=== PATIENT | female | born 1940 ===

== ENCOUNTER 2017-10-07 21:14 | Inpatient (IN) | payer MEDICARE, OTHER ==
--- NOTE | 2017-10-07 22:28 | ED PDOC ---
Arrival/HPI - General Chief Complaint: Abdominal Pain Time Seen by Provider: 10/07/17 22:24 Historian: Family - History of Present Illness Narrative History of Present Illness (Text): 10/07/17 22:28 Jn Marrufo is a 77 year old female, whose past medical history includes advanced dementia, hypertension, and diverticulitis, who presents to the Emergency department brought in by son complaining of RUQ pain today. Limited HPI and ROS secondary to patient's dementia. PMD: Dr. Nunez Symptom Onset: Gradual Symptom Course: Unchanged Activities at Onset: Light Context: Home Past Medical History - Provider Review Nursing Documentation Reviewed: Yes - Cardiac Hx Cardiac Disorders: Yes Hx Hypertension: Yes - Neurological Hx Neurological Disorder: Yes Hx Alzheimer's Disease: Yes - HEENT Hx HEENT Disorder: No - Renal Hx Renal Disorder: No - Endocrine/Metabolic Hx Endocrine Disorders: Yes Hx Diabetes Mellitus Type 2: Yes - Hematological/Oncological Hx Blood Disorders: No - Integumentary Hx Dermatological Disorder: No - Musculoskeletal/Rheumatological Hx Musculoskeletal Disorders: No - Gastrointestinal Hx Gastrointestinal Disorders: No - Genitourinary/Gynecological Hx Genitourinary Disorders: No - Psychiatric Hx Psychophysiologic Disorder: No Hx Substance Use: No - Surgical History Other/Comment: fibroid removal Family/Social History - Physician Review Nursing Documentation Reviewed: Yes Family/Social History: Unknown Family HX Smoking Status: Never Smoked Hx Alcohol Use: No Hx Substance Use: No Allergies/Home Meds Allergies/Adverse Reactions: Allergies piperacillin [From Zosyn] Allergy (Mild, Verified 10/08/17 15:09) SWELLING lip swelling noted. iodine Allergy (Verified 10/08/17 14:44) ANAPHYLAXIS Home Medications: Home Meds Medication Instructions Recorded Confirmed Clopidogrel [Plavix] 75 mg PO DAILY 10/07/17 10/07/17 Hydrochlorothiazide [Microzide] 12.5 mg PO DAILY 10/07/17 10/07/17 Hydrocortisone 2.5% 1 appl TP BID 10/07/17 10/07/17 Megestrol [Megace] 40 mg PO BID 10/07/17 10/08/17 Memantine HCl [Namenda Xr] 28 mg PO DAILY 10/07/17 10/07/17 Mirtazapine [Remeron] 15 mg PO DAILY 10/07/17 10/07/17 Omeprazole 40 mg PO DAILY 10/07/17 10/07/17 Rosuvastatin Calcium [Crestor] 20 mg PO DAILY 10/07/17 10/07/17 amLODIPine [Norvasc] 10 mg PO DAILY 10/07/17 10/07/17 Metoprolol Tartrate [Lopressor] 50 mg PO BID 10/08/17 10/08/17 cloNIDine [Catapres] 0.1 mg PO BID 10/08/17 10/08/17 Review of Systems - Patients Enrolled in [employer] [X]: A conversation was conducted with the primary medical doctor. - Review of Systems Systems not reviewed;Unavailable: Dementia Gastrointestinal: Abdominal Pain Physical Exam Vital Signs Reviewed: Yes Vital Signs Temp Pulse Resp BP Pulse Ox 10/08/17 08:38 98.6 F 90 18 156/74 H 98 10/08/17 07:28 80 18 141/82 98 10/08/17 06:51 89 17 143/58 L 98 10/08/17 04:39 85 17 122/78 98 10/07/17 21:49 99.1 F 75 18 124/68 97 Temperature: Afebrile Blood Pressure: Normal Pulse: Regular Respiratory Rate: Normal Appearance: Positive for: Well-Appearing, Non-Toxic, Comfortable Pain Distress: None Mental Status: Positive for: other (Alert) - Systems Exam Head: Present: Atraumatic, Normocephalic Pupils: Present: PERRL Extroacular Muscles: Present: EOMI Conjunctiva: Present: Normal Mouth: Present: Moist Mucous Membranes Neck: Present: Normal Range of Motion Respiratory/Chest: Present: Clear to Auscultation, Good Air Exchange. No: Respiratory Distress, Accessory Muscle Use Cardiovascular: Present: Regular Rate and Rhythm, Normal S1, S2. No: Murmurs Abdomen: Present: Tenderness (RUQ tenderness) Back: Present: Normal Inspection Upper Extremity: Present: Normal Inspection. No: Cyanosis, Edema Lower Extremity: Present: Normal Inspection. No: Edema Neurological: Present: GCS=15, CN II-XII Intact, Speech Normal Skin: Present: Warm, Dry, Normal Color. No: Rashes Psychiatric: Present: Alert, Oriented x 3, Normal Insight, Normal Concentration Medical Decision Making ED Course and Treatment: 10/07/17 22:28 Impression: 77 year old female presents to the Emergency department with RUQ abdominal pain. Plan: -- US abdomen -- EKG -- Labs, cardiac enzymes, amylase, lipase -- Urinalysis -- Reassess and disposition Progress Notes: 10/08/17 00:33 US Abdomen shows: Liver: Within the right hepatic lobe, there is a hyperechoic lesion measuring 1.3 x 1.2 x 1.1 cm. An additional hyperechoic lesion is visualized within the right hepatic lobe measuring 1.3 x 1.3 x 1.2 cm. These findings are suggestive of hemangiomas, although additional pathology cannot be excluded. The liver measures 15.4 cm in length. Gallbladder: There is an echogenic gallstone or polyp within the gallbladder. There is equivocal posterior acoustic shadowing. Common bile duct: The common bile that measures 2 mm in diameter, which is within normal limits. Pancreas: Unremarkable as visualized. Kidneys: At the mid-upper pole of the right kidney, there is a complex hyperechoic lesion measuring 1.5 x 1.1 cm. At the midpole of the left kidney, there is a 1.4 x 1.3 x 1.4 cm hypoechoic cyst, with subtle internal septation. The right kidney measures 8.0 x 4.6 x 5.5 cm. The left kidney measures 8.5 x 4.2 x 4.9 cm. No hydronephrosis. Spleen: The spleen measures 8.5 x 3.9 x 4.0 cm. The spleen measures 8.6 x 3.0 x 4.0 cm. There is normal echotexture of the spleen. Aorta: Limited evaluation. Inferior vena cava: Patent, as visualized IMPRESSION: 1. Within the right hepatic lobe, there were a few hyperechoic lesions. These findings are suggestive of hemangiomas, although additional pathology cannot be excluded. 2. At the mid-upper pole of the right kidney, there is a complex hyperechoic lesion measuring 1.5 x 1.1 cm. 3. There is an echogenic gallstone or polyp within the gallbladder. 4. At the midpole of the left kidney, there is a 1.4 x 1.3 x 1.4 cm hypoechoic cyst, with subtle internal septation. 5. A nonemergent MRI of the abdomen with contrast is recommended. 6. Incidental/non-acute findings are described above. 10/08/17 01:35 Reviewed EKG, NSR at 83 bpm. Non-specific T wave changes laterally. No previous for comparison. 10/08/17 02:[address] Nevarez, who is aware and agrees with plan. Accepts pt in to his service. Pt admitted to [facility] for cholelithiasis, r/o cholecystitis. Requests Dr. Copeland and Dr. Miranda on consult. 10/08/17 02:40 CT Abdomen and Pelvis shows: 1. There is a moderate-sized hiatal hernia. Significant wall thickening is visualized of the distal esophagus, which may be inflammatory, although malignancy cannot be excluded. This can be further evaluated with upper endoscopy. 2. Within the right hepatic lobe, there is a 1.1 x 0.8 cm hypodense lesion. A nonemergent multiphase contrast CT or PET/CT is recommended 3. Cholelithiasis. 4. Lateral to the left adrenal gland, there is a peripherally calcified splenic artery aneurysm measuring 1.1 cm in diameter. 5. Scattered colonic diverticula are visualized. There is wall thickening of the sigmoid colon and rectum, suggestive of incomplete distention nor proctocolitis. Additional pathology cannot be excluded. 6. There is a mild compression fracture of the T12 and L1 vertebral bodies, with a moderate compression fracture of L4. The acuity of these findings is indeterminate. There is grade I anterolisthesis of L4 on L5 and L5 on S1. 7. Additional CT findings described above. 10/08/17 02:44 Case discussed with surgical nurse practitioner psychosocial rehabilitation counselor, who is aware and agrees with plan. 10/08/17 04:11 Pt with 1 episode of coffee ground emesis in ER. Rectal exam performed, brown stool, Guaiac negative. Protonix drip started. - Lab Interpretations Lab Results: 10/07/17 22:50 10/07/17 22:50 Lab Results 10/07/17 22:50: Sodium 138, Potassium 3.5 L, Chloride 98, Carbon Dioxide 22, Anion Gap 21 H, BUN 34 H, Creatinine 2.1 H, Est GFR ( Amer) 27, Est GFR ( Non-Af Amer) 23, Random Glucose 223 H, Calcium 11.9 H, Total Bilirubin 0.8, AST 27, ALT 18, Alkaline Phosphatase 60, Lactate Dehydrogenase 435, Total Creatine Kinase 110, Troponin I 0.03, Total Protein 7.8, Albumin 4.6, Globulin 3.2, Albumin/Globulin Ratio 1.4, Amylase 45, Lipase 129 10/07/17 22:50: PT 12.4, INR 1.09 H, APTT 20.8 L 10/07/17 22:50: WBC 12.5 H, RBC 3.66, Hgb 10.9 L, Hct 32.7 L, MCV 89.3, MCH 29.8 , MCHC 33.3, RDW 12.5, Plt Count 231, MPV 11.5 H, Gran % 76.5 H, Lymph % (Auto) 16.8 L, [place] % (Auto) 5.5, Eos % (Auto) 1.0 L, Baso % (Auto) 0.2, Gran # 9.56 H , Lymph # (Auto) 2.1, [place] # (Auto) 0.7 H, Eos # (Auto) 0.1, Baso # (Auto) 0.03 I have reviewed the lab results: Yes - RAD Interpretation Radiology Orders: 10/07/17 22:28 ABDOMEN COMPLETE [US] Stat 10/08/17 00:33 ABD & PELVIS W/O PO OR IV CONT [CT] Stat Arts Therapist: Radiologist - EKG Interpretation Interpreted by ED Physician: Yes Type: 12 lead EKG - Medication Orders Current Medication Orders: Amlodipine Besylate (Norvasc) 10 mg PO DAILY [facility] Last Admin: 10/08/17 18:55 Dose: 10 mg MAR Blood Pressure Document 10/08/17 18:55 DC (Rec: 10/08/17 18:55 DC [id number]) Blood Pressure Blood Pressure (100/60-150/90) 158/70 Diphenhydramine HCl (Benadryl) 25 mg IVP Q6H PRN PRN Reason: Anaphylaxis Last Admin: 10/08/17 23:21 Dose: 25 mg IVP Administration Document 10/08/17 23:21 KTR (Rec: 10/08/17 23:21 KTR [id number]) Charges for Administration # of IVP Administrations 1 Pantoprazole Sodium (Protonix 40mg Ivpb) 40 mg in 100 mls @ 20 mls/hr IVPB .Q5H [facility] Last Admin: 10/09/17 07:22 Dose: 20 mls/hr eMAR Start Stop Document 10/09/17 07:22 KTR (Rec: 10/09/17 07:22 KTR [id number] Intravenous Solution Start Date 10/09/17 Start Time 07:22 Sodium Chloride (Sodium Chloride 0.45%) 1,000 mls @ 80 mls/hr IV .[id number] [facility] Last Admin: 10/08/17 18:55 Dose: 80 mls/hr eMAR Start Stop Document 10/08/17 18:55 DC (Rec: 10/08/17 18:55 DC [id number][place] Intravenous Solution Start Date 10/08/17 Start Time 18:55 Aztreonam (Azactam 1 Gm) 100 mls @ 100 mls/hr IVPB Q8 [facility] PRN Reason: Protocol Stop: 10/16/17 06:01 Last Admin: 10/09/17 05:38 Dose: 100 mls/hr eMAR Start Stop Document 10/09/17 05:38 KTR (Rec: 10/09/17 05:38 KTR [id number]) Intravenous Solution Start Date 10/09/17 Start Time 05:38 Metronidazole (Flagyl) 500 mg in 100 mls @ 100 mls/hr IVPB Q8 [facility] PRN Reason: Protocol Last Admin: 10/09/17 05:10 Dose: 100 mls/hr eMAR Start Stop Document 10/09/17 05:10 KTR (Rec: 10/09/17 05:10 KTR [id number]) Intravenous Solution Start Date 10/09/17 Start Time 05:10 Insulin Human Regular (Humulin R High) 0 units SC ACHS [facility] PRN Reason: Protocol Last Admin: 10/08/17 23:18 Dose: Not Given Non-Admin Reason: Blood Sugar Parameter [facility] Blood Glucose Document 10/08/17 23:18 KTR (Rec: 10/08/17 23:18 KTR [id number]) Blood Glucose Finger Stick Blood Glucose (70-120) 158 Ketorolac Tromethamine (Toradol) 30 mg IVP Q8H PRN PRN Reason: Pain, moderate (4-7) Last Admin: 10/08/17 17:48 Dose: 30 mg MAR Pain Assessment Document 10/08/17 17:48 DC (Rec: 10/08/17 17:49 DC [id number][place] Pain Reassessment Is this a pain reassessment? No Presence of Pain Presence of Pain Yes Location Pain Location Body Site Abdomen IVP Administration Document 10/08/17 17:48 DC (Rec: 10/08/17 17:49 DC [id number][place] Charges for Administration # of IVP Administrations 1 Re-Assess: MAR Pain Assessment Document 10/08/17 18:48 DC (Rec: 10/08/17 19:09 DC [id number][place] Pain Reassessment Is this a pain reassessment? Yes Presence of Pain Presence of Pain No Ondansetron HCl (Zofran Inj) 4 mg IVP Q4 PRN PRN Reason: Nausea/Vomiting Last Admin: 10/08/17 09:21 Dose: 4 mg IVP Administration Document 10/08/17 09:21 SE (Rec: 10/08/17 09:21 SE [id number]) Charges for Administration # of IVP Administrations 1 Discontinued Medications Clonidine HCl (Catapres) 0.1 mg PO ONCE ONE Stop: 10/08/17 21:06 Last Admin: 10/08/17 23:22 Dose: 0.1 mg [facility] Pulse and Blood Pressure Document 10/08/17 23:22 KTR (Rec: 10/08/17 23:22 KTR [id number]) Pulse Pulse Rate (60-90) 85 Blood Pressure Blood Pressure (100/60-150/90) 175/100 Sodium Chloride (Sodium Chloride 0.9%) 500 mls @ 999 mls/hr IV .Q31M STA Stop: 10/08/17 01:53 Last Admin: 10/08/17 01:30 Dose: 999 mls/hr eMAR Start Stop Document 10/08/17 01:30 IT (Rec: 10/08/17 01:30 IT [id number]) Intravenous Solution Start Date 10/08/17 Start Time 01:30 Piperacillin Sod/Tazobactam Sod (Zosyn 3.375 In Ns 100ml) 100 mls @ 200 mls/hr IVPB STAT STA PRN Reason: Protocol Stop: 10/08/17 03:10 Last Admin: 10/08/17 02:56 Dose: 200 mls/hr eMAR Start Stop Document 10/08/17 02:56 IT (Rec: 10/08/17 02:56 IT [id number]) Intravenous Solution Start Date 10/08/17 Start Time 02:56 Lactated Ringer's (Lactated Ringer's) 1,000 mls @ 100 mls/hr IV .Q10H [facility] Last Admin: 10/08/17 03:45 Dose: 100 mls/hr eMAR Start Stop Document 10/08/17 03:45 IT (Rec: 10/08/17 03:45 IT [id number]) Intravenous Solution Start Date 10/08/17 Start Time 03:45 Piperacillin Sod/Tazobactam Sod (Zosyn 2.25 Gm In 0.9% 100 Ml) 2.25 gm in 100 mls @ 100 mls/hr IVPB Q8H [facility] PRN Reason: Protocol Stop: 10/08/17 17:29 Last Admin: 10/08/17 12:29 Dose: 100 mls/hr eMAR Start Stop Document 10/08/17 12:29 DC (Rec: 10/08/17 12:30 DC [id number] Intravenous Solution Start Date 10/08/17 Start Time 12:30 Magnesium Sulfate/Dextrose (Magnesium Sulfate 1 Gm/100 Ml D5w) 1 gm in 100 mls @ 100 mls/hr IVPB ONCE ONE Stop: 10/08/17 22:04 Last Admin: 10/08/17 23:20 Dose: 100 mls/hr eMAR Start Stop Document 10/08/17 23:20 KTR (Rec: 10/08/17 23:20 KTR [id number]) Intravenous Solution Start Date 10/08/17 Start Time 23:20 Lorazepam (Ativan) 0.5 mg IVP ONCE ONE PRN Reason: Protocol Stop: 10/08/17 04:16 Last Admin: 10/08/17 04:35 Dose: 0.5 mg IVP Administration Document 10/08/17 04:35 IT (Rec: 10/08/17 04:35 IT [id number]) Charges for Administration # of IVP Administrations 1 Ondansetron HCl (Zofran Inj) 4 mg IVP STAT STA Stop: 10/07/17 23:43 Last Admin: 10/08/17 00:01 Dose: 4 mg IVP Administration Document 10/08/17 00:01 IT (Rec: 10/08/17 00:02 IT [id number]) Charges for Administration # of IVP Administrations 1 Oxycodone/Acetaminophen (Percocet 5/325 Mg Tab) 1 tab PO Q6 PRN PRN Reason: Pain, moderate (4-7) Stop: 10/11/17 06:01 Last Admin: 10/08/17 12:29 Dose: 1 tab [facility] Pain Assessment Document 10/08/17 12:29 DC (Rec: 10/08/17 12:29 DC [id number]) Pain Reassessment Is this a pain reassessment? Yes Presence of Pain Presence of Pain Yes Pain Scale Used Pain Scale Used Numeric Location Pain Location Body Site Abdomen Re-Assess: [facility] Pain Assessment Document 10/08/17 13:29 DC (Rec: 10/08/17 16:12 DC [id number]) Pain Reassessment Is this a pain reassessment? Yes Presence of Pain Presence of Pain No Pantoprazole Sodium (Protonix Inj) 40 mg IVP STAT STA Stop: 10/08/17 04:09 Last Admin: 10/08/17 04:34 Dose: 40 mg IVP Administration Document 10/08/17 04:34 IT (Rec: 10/08/17 04:35 IT [id number]) Charges for Administration # of IVP Administrations 1 Pneumococcal Polyvalent Vaccine (Pneumovax 23 Vaccine) 0.5 ml IM .ONCE ONE Stop: 10/08/17 19:10 - Scribe Statement The provider has reviewed the documentation as recorded by the Yvonne wallace under Kiara Metz All medical record entries made by the Scribdejuan were at my direction and personally dictated by me. I have reviewed the chart and agree that the record accurately reflects my personal performance of the history, physical exam, medical decision making, and the department course for this patient. I have also personally directed, reviewed, and agree with the discharge instructions and disposition. Disposition/Present on Arrival - Present on Arrival Any Indicators Present on Arrival: No History of DVT/PE: No History of Uncontrolled Diabetes: No Urinary Catheter: No History of Decub. Ulcer: No History Surgical Site Infection Following: None - Disposition Have Diagnosis and Disposition been Completed?: Yes Diagnosis: GI bleed, Cholelithiasis, Renal failure Disposition: HOSPITALIZED Disposition Time: 04:00 Condition: FAIR
[2017-10-07 23:17] LABS: BASO # 0.03 K/mm3 (0.0-2.0); BASO % 0.2 % (0.0-3.0); EOS # 0.1 (0.0-0.7); GRAN # 9.56 (1.4-6.5); GRAN % 76.5 % (50.0-68.0); HEMOGLOBIN 10.9 g/dL (12.0-16.0); LYMPH # 2.1 (1.2-3.4); LYMPH % 16.8 % (22.0-35.0); MEAN CELL VOLUME 89.3 fl (80.0-105.0); MEAN CORPUSCULAR HEMOGLOBIN 29.8 pg (25.0-35.0); MEAN CORPUSCULAR HGB CONC 33.3 g/dl (31.0-37.0); MEAN PLATELET VOLUME 11.5 fl (7.0-11.0); MONO # 0.7 (0.1-0.6); MONO % 5.5 % (1.0-6.0); RBC 3.66 10^6/uL (3.5-6.1); RED CELL DISTRIBUTION WIDTH 12.5 % (11.5-14.5); WHITE BLOOD COUNT 12.5 10^3/ul (4.5-11.0)
[2017-10-07 23:23] LABS: ALB/GLOB RATIO 1.4 (1.1-1.8); ALBUMIN 4.6 g/dL (3.0-4.8); CALCIUM 11.9 mg/dL (8.4-10.5)
[2017-10-07 23:33] LABS: TROPONIN I 0.03 ng/mL
[2017-10-07 23:36] LABS: INR 1.09 (0.93-1.08); PARTIAL THROMBOPLASTIN TIME 20.8 Seconds (25.1-36.5); PROTHROMBIN TIME 12.4 SECONDS (9.4-12.5)
--- NOTE | 2017-10-08 00:21 | US ---
EXAM: US Abdomen Complete EXAM DATE/TIME: 10/07/2017 10:28 PM CLINICAL HISTORY: The patient age is 77 years old and is female; Pain; Abdominal pain; Epigastric; Additional info: [facility] pain Facility exam id and description: Us abd abdomen complete TECHNIQUE: Real-time ultrasound of the abdomen (complete) with image documentation. COMPARISON: No relevant prior studies available. FINDINGS: Liver: Within the right hepatic lobe, there is a hyperechoic lesion measuring 1.3 x 1.2 x 1.1 cm. An additional hyperechoic lesion is visualized within the right hepatic lobe measuring 1.3 x 1.3 x 1.2 cm. These findings are suggestive of hemangiomas, although additional pathology cannot be excluded. The liver measures 15.4 cm in length. Gallbladder: There is an echogenic gallstone or polyp within the gallbladder. There is equivocal posterior acoustic shadowing. Common bile duct: The common bile that measures 2 mm in diameter, which is within normal limits. Pancreas: Unremarkable as visualized. Kidneys: At the mid-upper pole of the right kidney, there is a complex hyperechoic lesion measuring 1.5 x 1.1 cm. At the midpole of the left kidney, there is a 1.4 x 1.3 x 1.4 cm hypoechoic cyst, with subtle internal septation. The right kidney measures 8.0 x 4.6 x 5.5 cm. The left kidney measures 8.5 x 4.2 x 4.9 cm. No hydronephrosis. Spleen: The spleen measures 8.5 x 3.9 x 4.0 cm. The spleen measures 8.6 x 3.0 x 4.0 cm. There is normal echotexture of the spleen. Aorta: Limited evaluation. Inferior vena cava: Patent, as visualized. IMPRESSION: 1. Within the right hepatic lobe, there were a few hyperechoic lesions. These findings are suggestive of hemangiomas, although additional pathology cannot be excluded. 2. At the mid-upper pole of the right kidney, there is a complex hyperechoic lesion measuring 1.5 x 1.1 cm. 3. There is an echogenic gallstone or polyp within the gallbladder. 4. At the midpole of the left kidney, there is a 1.4 x 1.3 x 1.4 cm hypoechoic cyst, with subtle internal septation. 5. A nonemergent MRI of the abdomen with contrast is recommended. 6. Incidental/non-acute findings are described above.
[2017-10-08] MEDS ORDERED: Sodium Chloride 0.9% 500 ML IV STA (01:23)
--- NOTE | 2017-10-08 02:39 | CT ---
EXAM: CT Abdomen and Pelvis Without Intravenous Contrast EXAM DATE/TIME: 10/08/2017 12:33 AM CLINICAL HISTORY: The patient age is 77 years old and is female; Pain; Abdominal pain; Epigastric; Additional info: Upper abd pain Facility exam id and description: Ct abdpelscon abd pelvis w/o po or iv cont TECHNIQUE: Axial computed tomography images of the abdomen and pelvis without intravenous contrast. All CT scans at this facility use one or more dose reduction techniques, viz.: automated exposure control; ma/kV adjustment per patient size (including targeted exams where dose is matched to indication; i.e. head); or iterative reconstruction technique. Coronal and sagittal reformatted images were created and reviewed. COMPARISON: US - ABDOMEN COMPLETE 2017-10-07 23:09 FINDINGS: Lower thorax: There is a moderate-sized hiatal hernia. Significant wall thickening is visualized of the distal esophagus, which may be inflammatory, although malignancy cannot be excluded. Mild atelectatic changes are identified at the bilateral lung bases. There is coronary artery calcification. ABDOMEN: Liver: Within the right hepatic lobe, there is a 1.1 x 0.8 cm hypodense lesion, incompletely characterized without intravenous contrast. Gallbladder and bile ducts: Small hyperdense gallstones are visualized within the dependent gallbladder. Pancreas: Atrophic changes are noted of the pancreas. Spleen: No splenomegaly. Adrenals: No mass. Kidneys and ureters: There is a hypodense probable cyst at the midpole the left kidney measuring 1.2 cm in diameter. There is no hydronephrosis bilaterally. Stomach and bowel: Scattered colonic diverticula are visualized. There is wall thickening of the sigmoid colon and rectum, suggestive of incomplete distention nor proctocolitis. Additional pathology cannot be excluded. Appendix: No findings to suggest acute appendicitis. PELVIS: Bladder: No stones. Reproductive: The uterus is absent. ABDOMEN and PELVIS: Intraperitoneal space: No free air. Bones/joints: There is a mild compression fracture of the T12 and L1 vertebral bodies, with a moderate compression fracture of L4. The acuity of these findings is indeterminate. There is grade I anterolisthesis of L4 on L5 and L5 on S1. Hypertrophic degenerative changes are noted within the spine. Facet arthropathy is visualized at L5-S1, with gas within the facet joints. Vacuum disc phenomena are identified within lower thoracic and lumbar lumbar discs. Soft tissues: A stimulator is identified within the subcutaneous tissues of the right buttock, with a lead extending into the left posterior pelvis. Vasculature: Lateral to the left adrenal gland, there is a peripherally calcified splenic artery aneurysm measuring 1.1 cm in diameter. Atherosclerotic changes are identified of the aorta. Additional atherosclerotic changes are visualized. Lymph nodes: A subcentimeter lymph node is identified within the retroperitoneum at the level of the aortic bifurcation. Small intrapelvic lymph nodes are identified, without significant intrapelvic lymphadenopathy. IMPRESSION: 1. There is a moderate-sized hiatal hernia. Significant wall thickening is visualized of the distal esophagus, which may be inflammatory, although malignancy cannot be excluded. This can be further evaluated with upper endoscopy. 2. Within the right hepatic lobe, there is a 1.1 x 0.8 cm hypodense lesion. A nonemergent multiphase contrast CT or PET/CT is recommended 3. Cholelithiasis. 4. Lateral to the left adrenal gland, there is a peripherally calcified splenic artery aneurysm measuring 1.1 cm in diameter. 5. Scattered colonic diverticula are visualized. There is wall thickening of the sigmoid colon and rectum, suggestive of incomplete distention nor proctocolitis. Additional pathology cannot be excluded. 6. There is a mild compression fracture of the T12 and L1 vertebral bodies, with a moderate compression fracture of L4. The acuity of these findings is indeterminate. There is grade I anterolisthesis of L4 on L5 and L5 on S1. 7. Additional CT findings described above.
[2017-10-08] MEDS ORDERED: Piperacillin/Tazobact 3.375 gm 100 ML IVPB STA (02:41)
[2017-10-08] MEDS ORDERED: Lactated Ringer's 1,000 ML IV SCH (03:00)
[2017-10-08] MEDS: Oxycodone/Acetaminophen 5/325 mg Tab PO PRN ×2 (03:45→12:29)
[2017-10-08] MEDS: Pantoprazole 40mg/100mL NS 40 MG/100 ML BAG IVPB SCH ×4 (05:56→19:27)
--- NOTE | 2017-10-08 06:53 | CP.PCM.CON ---
<Shantell Bruce - Last Filed: 10/08/17 16:01> History of Present Illness - History of Present Illness History of Present Illness: GI consult note for Dr Cabrera Reason for consult: Gi bleeding Patient is a 77 y/o with PMHx of Alzheimer dementia, DM, HLD, cva (on plavix), htn, diverticulitis who was brought in by her son due to abdominal pain and worsening of dementia. Patient's demented thus history is limited. Patient did mention she has been feeling nauseous and has been vomiting. Spoke to patient's daughter on the phone at [phone]), reported since Friday patient refused to eat or drink, has been spitting food and water, and complaining of mid-epigastric pain. Patient had an episode of abdominal left lower quadrant abdominal pain in August along with dark blood in stool and fresh blood when she wiped, [place] [facility] [place] and colonoscopy revealing no active bleeding/ diverticulosis. Patient was discharged to continue omeprazole and to follow up with performance consultant Dr Nemesio Ferrer, on October 28. However patient continue to complain of chronic left side constant abdominal pain. The daughter has been giving her Motrin 400 mg once or twice a day intermittently prn, last Motrin was Friday night. Daughter states she brought patient to the ED due to worsening of confusion. In the ED patient started to spit dark particle on the napkin, thus GI is consulted for possible upper Gi bleeding. As per daughter last bowel movement was yesterday, was regular, no blood in the stool. PMHx: Alzheimer dementia, DM, HLD, cva (on plavix), htn, diverticulitis PSHx: Hemorhoidectomy, hysterectomy, morgan carpal tunnel surgery, FMHx: dad had bladder cancer Social: Denies alcohol, tobacco or illicit drug use. Lives with daughter. Allergy: iodine Review of Systems - Review of Systems Systems not reviewed;Unavailable: Dementia Past Patient History - Tetanus Immunizations Tetanus Immunization: Unknown - Past Social History Smoking Status: Never Smoked Alcohol: None Drugs: Denies Home Situation {Lives}: With Family - CARDIAC Hx Cardiac Disorders: Yes Hx Hypertension: Yes - NEUROLOGICAL Hx Neurological Disorder: Yes Hx Alzheimer's Disease: Yes - HEENT Hx HEENT Problems: No - RENAL Hx Chronic Kidney Disease: No - ENDOCRINE/METABOLIC Hx Endocrine Disorders: Yes Hx Diabetes Mellitus Type 2: Yes - HEMATOLOGICAL/ONCOLOGICAL Hx Blood Disorders: No - INTEGUMENTARY Hx Dermatological Problems: No - MUSCULOSKELETAL/RHEUMATOLOGICAL Hx Musculoskeletal Disorders: No - GASTROINTESTINAL Hx Gastrointestinal Disorders: No - GENITOURINARY/GYNECOLOGICAL Hx Genitourinary Disorders: No - PSYCHIATRIC Hx Psychophysiologic Disorder: No Hx Substance Use: No - SURGICAL HISTORY Other/Comment: fibroid removal Meds Allergies/Adverse Reactions: Allergies Allergy/AdvReac Type Severity Reaction Status Date / Time piperacillin [From Zosyn] Allergy Mild SWELLING Verified 10/08/17 15:09 iodine Allergy ANAPHYLAXIS Verified 10/08/17 14:44 - Medications Medications: Current Medications Lactated Ringer's (Lactated Ringer's) 1,000 mls @ 100 mls/hr IV .Q10H [facility] Last Admin: 10/08/17 03:45 Dose: 100 mls/hr Pantoprazole Sodium (Protonix 40mg Ivpb) 40 mg in 100 mls @ 20 mls/hr IVPB .Q5H [facility] Last Admin: 10/08/17 05:56 Dose: 20 mls/hr Ondansetron HCl (Zofran Inj) 4 mg IVP Q4 PRN PRN Reason: Nausea/Vomiting Oxycodone/Acetaminophen (Percocet 5/325 Mg Tab) 1 tab PO Q6 PRN PRN Reason: Pain, moderate (4-7) Stop: 10/11/17 06:01 Last Admin: 10/08/17 03:45 Dose: 1 tab Physical Exam - Constitutional Appears: No Acute Distress, Confused, Chronically Ill - Head Exam Head Exam: ATRAUMATIC, NORMAL INSPECTION, NORMOCEPHALIC - Eye Exam Eye Exam: EOMI, Normal appearance, PERRL. absent: Scleral icterus - ENT Exam ENT Exam: Mucous Membranes Moist - Neck Exam Neck exam: Positive for: Normal Inspection - Respiratory Exam Respiratory Exam: Clear to Auscultation Bilateral, NORMAL BREATHING PATTERN. absent: Decreased Breath Sounds, Rales, Rhonchi, Wheezes, Respiratory Distress, Stridor - Cardiovascular Exam Cardiovascular Exam: REGULAR RHYTHM, RRR, +S1, +S2. absent: Systolic Murmur - GI/Abdominal Exam GI & Abdominal Exam: Normal Bowel Sounds, Soft, Tenderness (epigastric and right upper and left lower quadrant pain.). absent: Distended (obese abdomen ) , Firm, Guarding, Rebound, Rigid - Rectal Exam Rectal Exam: Hemorrhoids, NORMAL INSPECTION. absent: Black Stool, Bloody Stool , Fecal Impaction Additional comments: + Brown stool, no fresh blood. - Extremities Exam Extremities exam: Positive for: normal inspection. Negative for: pedal edema - Neurological Exam Neurological exam: Alert - Psychiatric Exam Psychiatric exam: Normal Affect, Normal Mood - Skin Skin Exam: Dry, Intact, Warm Results - Vital Signs Recent Vital Signs: Last Vital Signs Temp 99.1 F 10/07/17 21:49 Pulse 89 10/08/17 06:51 Resp 17 10/08/17 06:51 BP 143/58 L 10/08/17 06:51 Pulse Ox 98 10/08/17 06:51 - Labs Result Diagrams: 10/07/17 22:50 10/08/17 10:30 Assessment & Plan - Assessment and Plan (Free Text) Assessment: Patient is a 77 y/o with PMHx of Alzheimer dementia, DM, HLD, cva (on plavix), htn, diverticulitis who was brought in by her son due to abdominal pain and worsening of dementia. Patient was noted to be spitting dark particles, thus Gi is consulted for possible upper gi bleeding. Patient had CT abdomen and pelvis revealing mod hiatal hernia, thickening in distal esophagus, hepatic lesion suggestive of hemangiomas, thickening of sigmoid and rectal colon, cholelithiasis. 1- Epigastric and right upper quadrant abdominal pain with emesis- r/o cholecystitis, PUD, gastritis. 2- Anemia r/o upper GI bleeding 3- MICHELE 4- dementia 5- h/o cva on plavix for secondary prevention Plan: - Continue ppi and anti-emetic prn - Patient recently had EGD/colonoscopy in August 2017, [place] [facility] [place] Surgery following for cholelithiasis, ordered hida scan, follow up with surgery for recommendations - Nephrology following for michele - Continue to monitor h/h - Will follow patient's clinical course. - On IV hydration and toradol prn for pain. Patient seen, examined and case discussed with Dr García. - Date & Time Date: 10/08/17 Time: 09:00 <Greg García - Last Filed: 10/08/17 18:41> Meds - Medications Medications: Current Medications Amlodipine Besylate (Norvasc) 10 mg PO DAILY [facility] Diphenhydramine HCl (Benadryl) 25 mg IVP Q6H PRN PRN Reason: Anaphylaxis Last Admin: 10/08/17 13:20 Dose: 25 mg Pantoprazole Sodium (Protonix 40mg Ivpb) 40 mg in 100 mls @ 20 mls/hr IVPB .Q5H [facility] Last Admin: 10/08/17 14:48 Dose: 20 mls/hr Sodium Chloride (Sodium Chloride 0.45%) 1,000 mls @ 80 mls/hr IV .[id number] [facility] Last Admin: 10/08/17 10:12 Dose: 80 mls/hr Insulin Human Regular (Humulin R High) 0 units SC ACHS [facility] PRN Reason: Protocol Last Admin: 10/08/17 16:12 Dose: Not Given Ketorolac Tromethamine (Toradol) 30 mg IVP Q8H PRN PRN Reason: Pain, moderate (4-7) Last Admin: 10/08/17 17:48 Dose: 30 mg Ondansetron HCl (Zofran Inj) 4 mg IVP Q4 PRN PRN Reason: Nausea/Vomiting Last Admin: 10/08/17 09:21 Dose: 4 mg Results - Vital Signs Recent Vital Signs: Last Vital Signs Temp 99.1 F 10/08/17 17:50 Pulse 96 H 10/08/17 17:50 Resp 18 10/08/17 17:50 BP 158/70 H 10/08/17 17:50 Pulse Ox 97 10/08/17 12:53 - Labs Result Diagrams: 10/07/17 22:50 10/08/17 10:30 Labs: Laboratory Results - last 24 hr 10/08/17 10:30 Sodium 140 Potassium 3.6 Chloride 103 Carbon Dioxide 17 L Anion Gap 23 H BUN 32 H Creatinine 2.0 H Est GFR ( Amer) 29 Est GFR (Non-Af Amer) 24 Random Glucose 246 H Calcium 11.5 H Phosphorus 3.0 Magnesium 1.6 L Attending/Attestation - Attestation I have personally seen and examined this patient.: Yes I have fully participated in the care of the patient.: Yes I have reviewed all pertinent clinical information: Yes Notes (Text): 10/08/17 18:40 77 year old female with h/o DM, CVA, HLD, HTN, Diverticulosis a/w abdominal pain, found to have gallstones. 1. Abdominal pain 2. Cholelithiasis Plan: - continue pantoprazole 40 mg daily -s/p recent EGD/Colonoscopy (unremarkable) -HIDA negative -difficult to determine if symptoms are biliary colic, which is possible -appreciate surgical eval for consideration of cholecystectomy -diet as tolerated
--- NOTE | 2017-10-08 07:20 | CP.PCM.CON ---
History of Present Illness - History of Present Illness History of Present Illness: GENERAL SURGERY CONSULT NOTE FOR DR. DEXTER 77yo F with PMHx of HTN, DM, advanced dementia, diverticulitis presents to the ED with RUQ abdominal pain. Most of history is obtained from her son, Scott at [phone] due to patient's dementia. He stated that for the past couple days she had been saying she "can't eat due to stomach pain". The pain was located in her epigastric and RUQ. Per her son, she hasn't eaten anything in 48 hours. Once she came to the ED, she stated that her back pain was worse than the abdominal pain. She vomited in the ED several times. Per her son, she was seen at [facility] [place] and admitted for 5 days for similar symptoms. She had an EGD and colonoscopy which as far as he knows were negative. He also reports that she had renal failure due to dehydration. Scott recommended that I call her daughter Shanita who the patient lives with at but she was unable to be reached. PMHx: HTN, advanced dementia, diverticulitis, DM Surg: fibroid removal Allerg: iodine Social history: denies tobacco or etoh use Review of Systems - Review of Systems Systems not reviewed;Unavailable: Dementia Past Patient History - Past Social History Smoking Status: Never Smoked - CARDIAC Hx Cardiac Disorders: Yes Hx Hypertension: Yes - NEUROLOGICAL Hx Neurological Disorder: Yes Hx Alzheimer's Disease: Yes - HEENT Hx HEENT Problems: No - RENAL Hx Chronic Kidney Disease: No - ENDOCRINE/METABOLIC Hx Endocrine Disorders: Yes Hx Diabetes Mellitus Type 2: Yes - HEMATOLOGICAL/ONCOLOGICAL Hx Blood Disorders: No - INTEGUMENTARY Hx Dermatological Problems: No - MUSCULOSKELETAL/RHEUMATOLOGICAL Hx Musculoskeletal Disorders: No - GASTROINTESTINAL Hx Gastrointestinal Disorders: No - GENITOURINARY/GYNECOLOGICAL Hx Genitourinary Disorders: No - PSYCHIATRIC Hx Psychophysiologic Disorder: No Hx Substance Use: No - SURGICAL HISTORY Other/Comment: fibroid removal Meds Allergies/Adverse Reactions: Allergies Allergy/AdvReac Type Severity Reaction Status Date / Time iodine Allergy ANAPHYLAXIS Verified 10/07/17 21:43 - Medications Medications: Current Medications Lactated Ringer's (Lactated Ringer's) 1,000 mls @ 100 mls/hr IV .Q10H [facility] Last Admin: 10/08/17 03:45 Dose: 100 mls/hr Pantoprazole Sodium (Protonix 40mg Ivpb) 40 mg in 100 mls @ 20 mls/hr IVPB .Q5H [facility] Last Admin: 10/08/17 05:56 Dose: 20 mls/hr Ondansetron HCl (Zofran Inj) 4 mg IVP Q4 PRN PRN Reason: Nausea/Vomiting Oxycodone/Acetaminophen (Percocet 5/325 Mg Tab) 1 tab PO Q6 PRN PRN Reason: Pain, moderate (4-7) Stop: 10/11/17 06:01 Last Admin: 10/08/17 03:45 Dose: 1 tab Physical Exam - Constitutional Appears: Non-toxic, No Acute Distress, Confused - Eye Exam Eye Exam: EOMI, Normal appearance - Respiratory Exam Respiratory Exam: NORMAL BREATHING PATTERN. absent: Respiratory Distress - Cardiovascular Exam Cardiovascular Exam: +S1, +S2 - GI/Abdominal Exam GI & Abdominal Exam: Soft, Tenderness (mild RUQ tenderness). absent: Distended , Firm, Guarding, Rebound, Rigid - Neurological Exam Neurological exam: Alert, Altered - Psychiatric Exam Psychiatric exam: Normal Affect, Normal Mood - Skin Skin Exam: Dry, Normal Color, Warm Results - Vital Signs Recent Vital Signs: Last Vital Signs Temp 99.1 F 10/07/17 21:49 Pulse 89 10/08/17 06:51 Resp 17 10/08/17 06:51 BP 143/58 L 10/08/17 06:51 Pulse Ox 98 10/08/17 06:51 - Labs Result Diagrams: 10/07/17 22:50 10/07/17 22:50 Assessment & Plan - Assessment and Plan (Free Text) Assessment: 77yo F with PMHx of HTN, DM, advanced dementia, diverticulitis who presents with RUQ pain - Afebrile, VSS - WBC 12.5 - Cr 2.1 - US: echogenic gallstone or polyp within gallbladder; few hyperechoic lesions within liver (hemangiomas?) - CT: moderate size hiatal hernia, significant wall thickening of distal esophagus, hypodense lesion in right hepatic lobe, cholelithiasis, 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 Ruben Rebolledo PGY-3
[2017-10-08] MEDS ORDERED: Piperacillin/Tazobact 2.25gm 2.25 GM/100 ML BAG IVPB SCH (08:30)
[2017-10-08] MEDS: Sodium Chloride 0.45% 1,000 ML IV SCH ×2 (10:12→18:55)
--- NOTE | 2017-10-08 10:14 | CP.PCM.CON ---
History of Present Illness - History of Present Illness History of Present Illness: RENAL CONSULT consult for MICHELE Hpi: 77 y/o with PMHx of dementia, dm, hyperlipid, htn that was brought in for abdominal pain. I am unable to get any further history from the patient other than that she was vomitting and history is obtain from ER staff and consultants. She apparently had nausea and vomitting - it sounds like there was coffee groun emesis as well. She reportedly had a recent EGD and colo abut 2 months or so ago. She endorses some mild abdominal pain. She denies any fever or chills. There is NSAID use history according to the chart. The family states her confusion is worse than usual as well. Her hemodynamics are stable in ER however found to have ARF. ROS: a full detailed ROS is limited due to dementia pmh: htn, hyperlipid, dementia, dm famhx: unable to obtain - dementia sochx: per chart no etoh, smoke, ivdu Past Patient History - Tetanus Immunizations Tetanus Immunization: Unknown - Past Social History Smoking Status: Never Smoked Alcohol: None Drugs: Denies Home Situation {Lives}: With Family - CARDIAC Hx Cardiac Disorders: Yes Hx Hypertension: Yes - NEUROLOGICAL Hx Neurological Disorder: Yes Hx Alzheimer's Disease: Yes - HEENT Hx HEENT Problems: No - RENAL Hx Chronic Kidney Disease: No - ENDOCRINE/METABOLIC Hx Endocrine Disorders: Yes Hx Diabetes Mellitus Type 2: Yes - HEMATOLOGICAL/ONCOLOGICAL Hx Blood Disorders: No - INTEGUMENTARY Hx Dermatological Problems: No - MUSCULOSKELETAL/RHEUMATOLOGICAL Hx Musculoskeletal Disorders: No - GASTROINTESTINAL Hx Gastrointestinal Disorders: No - GENITOURINARY/GYNECOLOGICAL Hx Genitourinary Disorders: No - PSYCHIATRIC Hx Psychophysiologic Disorder: No Hx Substance Use: No - SURGICAL HISTORY Other/Comment: fibroid removal Meds Allergies/Adverse Reactions: Allergies Allergy/AdvReac Type Severity Reaction Status Date / Time iodine Allergy ANAPHYLAXIS Verified 10/07/17 21:43 - Medications Medications: Current Medications Pantoprazole Sodium (Protonix 40mg Ivpb) 40 mg in 100 mls @ 20 mls/hr IVPB .Q5H [facility] Last Admin: 10/08/17 08:31 Dose: 20 mls/hr Sodium Chloride (Sodium Chloride 0.45%) 1,000 mls @ 80 mls/hr IV .[id number] [facility] Piperacillin Sod/Tazobactam Sod (Zosyn 2.25 Gm In 0.9% 100 Ml) 2.25 gm in 100 mls @ 100 mls/hr IVPB Q8H [facility] PRN Reason: Protocol Stop: 10/08/17 17:29 Insulin Human Regular (Humulin R High) 0 units SC ACHS [facility] PRN Reason: Protocol Ondansetron HCl (Zofran Inj) 4 mg IVP Q4 PRN PRN Reason: Nausea/Vomiting Last Admin: 10/08/17 09:21 Dose: 4 mg Oxycodone/Acetaminophen (Percocet 5/325 Mg Tab) 1 tab PO Q6 PRN PRN Reason: Pain, moderate (4-7) Stop: 10/11/17 06:01 Last Admin: 10/08/17 03:45 Dose: 1 tab Physical Exam - Constitutional Appears: Non-toxic - Head Exam Head Exam: ATRAUMATIC - Eye Exam Eye Exam: Normal appearance - ENT Exam ENT Exam: Mucous Membranes Moist - Neck Exam Neck exam: Positive for: Normal Inspection - Respiratory Exam Respiratory Exam: NORMAL BREATHING PATTERN - Cardiovascular Exam Cardiovascular Exam: +S1, +S2 - GI/Abdominal Exam GI & Abdominal Exam: Normal Bowel Sounds - Extremities Exam Extremities exam: Positive for: normal inspection - Neurological Exam Additional comments: Follows commands, alert - Psychiatric Exam Psychiatric exam: Normal Affect - Skin Skin Exam: Normal Color Results - Vital Signs Recent Vital Signs: Last Vital Signs Temp 98.6 F 10/08/17 08:38 Pulse 90 10/08/17 08:38 Resp 18 10/08/17 08:38 BP 156/74 H 10/08/17 08:38 Pulse Ox 98 10/08/17 08:38 - Labs Result Diagrams: 10/07/17 22:50 10/07/17 22:50 Assessment & Plan - Assessment and Plan (Free Text) Assessment: ARF / GIB / Anemia / Hypertension/ Hypokalemia Plan: MICHELE - not clear if she has any underlying CKD. Likely has some michele from hypovolemia from emesis + NSAID use. Agree w/ gentle hydration as ordered already. CT reviewed no hydro. Will check ua and urine lytes. Serial cbc transfusions per primary team Hgb acceptable bp acceptable for now f/u gi will check bmp, mag, phos again today, labs from last night reviewed. Thank you for this interesting consult, will continue to follow with you.
[2017-10-08 10:53] LABS: CALCIUM 11.5 mg/dL (8.4-10.5); MAGNESIUM 1.6 mg/dL (1.7-2.2)
[2017-10-08] MEDS: DiphenhydrAMINE 50 mg/ml Inj IVP PRN ×2 (13:20→23:21)
--- NOTE | 2017-10-08 16:09 | CARD ---
APPROVED REPORT EKG Measurement Heart [id number] <Conclusion> Normal sinus rhythm T wave abnormality, consider lateral ischemia Abnormal ECG
[2017-10-08] MEDS: Insulin Reg-HIGH-Coverage SC SCH ×2 (16:12→23:18)
--- NOTE | 2017-10-08 17:13 | NM ---
PROCEDURE: Nuclear Medicine Hepatobiliary Scan HISTORY: r/o cholecystitis COMPARISON: Comparison is made with the previous CT dated 10/08/2017 previous ultrasound dated 10/07/2017 TECHNIQUE: 5.2 mCi of technetium 99m Mebrofenin was administered intravenously. Planar images of the abdomen were obtained at 5 min intervals to 60 mins. Delayed images were also obtained. FINDINGS: LIVER: Slightly heterogeneous distribution of the radiotracer in the liver without evidence of photopenic area or focal abnormal uptake COMMON BILE DUCT: identified at 15 minutes mins. GALLBLADDER: identified at 15 minutes mins. SMALL BOWEL: Identified at 4 hours . IMPRESSION: Visualization of the gallbladder. No scintigraphic evidence of acute cholecystitis.
--- NOTE | 2017-10-08 18:50 | HP ---
HISTORY OF PRESENT ILLNESS: I was called down to the emergency room to see this lady. She is a 77-year-old female who speaks Japanese who has dementia and I had a acquisition lead and she was all over the place. The baseline is that she had a right upper quadrant pain and nausea, vomiting and she was not feeling well and it would not stop. There were times I understand where she was fine and all of a sudden she said all day long she was feeling this way, so the son brought her in. PAST MEDICAL HISTORY: She has a past medical history with advanced dementia, hypertension, diverticulitis history, hypertension, diabetes. She had fibroid removed one time in the past. Never smoked. FAMILY HISTORY: Unknown family history. SOCIAL HISTORY: No alcohol. No drugs. ALLERGIES: ALLERGIC TO IODINE. MEDICATIONS: She is on Plavix, Lexapro, Microzide, hydrocortisone, Zestril, Megace, Namenda, Remeron, omeprazole, Exelon, Crestor, Norvasc. REVIEW OF SYSTEMS: No acute vision changes, hearing changes. She has no chest pain, but she has right upper quadrant pain. She has nausea, vomiting. Not that I could tell any other issues with the belly. Extremities: No problems. PHYSICAL EXAMINATION: VITAL SIGNS: She has a 99.1 temp, 75 pulse, 18 respiratory rate, 124/68 blood pressure, 97% O2 sat. GENERAL: She is well appearing, nontoxic at this time, comfortable. She is alert. HEENT: Head is atraumatic, normocephalic. Extraocular muscles are intact. Pupils equal, reactive to light and accommodation. Mucous membranes are moist. NECK: Supple. HEART: Regular rate. Normal S1 and S2. LUNGS: Clear to auscultation bilaterally. Poor inspiration. ABDOMEN: Right upper quadrant tenderness. Mild guarding. No rebound. Decreased bowel sounds. No CVA tenderness. EXTREMITIES: No edema. She can move all 4 extremities. NEUROLOGIC: GCS is 15. Cranial nerves II through XII grossly intact. Normal speech. SKIN: Warm and dry. No apparent rashes or ulcers. PSYCHIATRIC: She is alert and confused at times. LYMPH NODES: Thyroid midline. No palpable lymphadenopathy. LABORATORY DATA: She already had a GI and surgical consults which I called in in the middle of the night. She had some tests done. She has a CAT scan of the abdomen and pelvis, which shows there was a moderate-sized hiatal hernia, significant wall thickening is visualized at the distal esophagus, which maybe inflammatory, but rule out any malignancy. She needs an upper endoscopy. The right hepatic lobe has a 1.1 x 0.8 cm hypodense lesion, cholelithiasis, calcified splenic artery, aneurysm measuring 1.1 cm diameter, scattered diverticula. There was wall thickening of the sigmoid colon. Possible proctocolitis. Compression fracture of T12 and L1 vertebral bodies and moderate compression fracture of L4. Grade 1 anterolisthesis of L4 and L5 and L5 and S1. She is consulted for GI and Surgery. We need Renal to come in. She has a 138 sodium, potassium 3.5. We replaced the potassium. BUN 34, creatinine 2.1. It is elevated, we will give her IV fluids. Sugar is 223. We are going to put her on coverage. She is n.p.o. Calcium is 11.9, very high. I am worried about a cancer. Total bili is 0.8, AST is 27, ALT is 18, alk phos is 60, lactate dehydrogenase is 435. Troponin I is 0.03. Total protein 7.8, albumin is 4.6, lipase is 129. INR is 1.09. White count is high at 12.5, she is on antibiotics; hemoglobin 10.9; hematocrit 32.7; platelets of 231. IMPRESSION: We will have a very thorough workup. IV fluids. Recheck the calcium. I am concerned about a cancer. She will need to have some gastrointestinal workup. She is here for right upper abdominal pain, nausea, vomiting, dementia, high calcium, diabetes, renal insufficiency. I will see how she does. She is n.p.o., on IV fluids and IV antibiotics. Cornell Nevarez DO
[2017-10-08 19:09] VITALS: BMI 26.2
[2017-10-08] MEDS ORDERED: Influenza Vaccine 60 mcg/0.5 mL SYR (4YR UP) IM ONE (19:09)
[2017-10-08] MEDS ORDERED: Pneumococcal 23-Valent Vaccine IM ONE (19:09)
--- NOTE | 2017-10-08 19:45 | CP.PCM.PCO ---
Physician Communication Note - Physician Communication Note Physician Communication Note: HIDA neg for acute daniella, ok for diet. ADAT
[2017-10-08] MEDS ORDERED: Magnesium Sulfate 1 gm in D5W 1 GM/100 ML BAG IVPB ONE (21:05)
[2017-10-09] MEDS: Sodium Chloride 0.45% 1,000 ML IV SCH ×2 (00:37→22:04)
[2017-10-09] MEDS: metroNIDAZOLE IV 500 mg/100 ml 500 MG/100 ML BAG IVPB SCH ×3 (05:10→21:00)
[2017-10-09] MEDS: Pantoprazole 40mg/100mL NS 40 MG/100 ML BAG IVPB SCH ×6 (05:13→23:34)
[2017-10-09] MEDS: Aztreonam 1 Gm in NS 100mL 100 ML IVPB SCH ×3 (05:38→21:00)
[2017-10-09 07:10] LABS: ALB/GLOB RATIO 1.2 (1.1-1.8); ALBUMIN 3.6 g/dL (3.0-4.8); CALCIUM 10.7 mg/dL (8.4-10.5)
[2017-10-09 07:12] LABS: HEMOGLOBIN 9.6 g/dL (12.0-16.0); MEAN CELL VOLUME 89.4 fl (80.0-105.0); MEAN CORPUSCULAR HEMOGLOBIN 29.8 pg (25.0-35.0); MEAN CORPUSCULAR HGB CONC 33.3 g/dl (31.0-37.0); MEAN PLATELET VOLUME 10.6 fl (7.0-11.0); RBC 3.22 10^6/uL (3.5-6.1); RED CELL DISTRIBUTION WIDTH 12.8 % (11.5-14.5); WHITE BLOOD COUNT 14.6 10^3/ul (4.5-11.0)
[2017-10-09] MEDS: Insulin Reg-HIGH-Coverage SC SCH ×4 (08:45→21:44)
[2017-10-09] MEDS ORDERED: Potassium Chloride 20 mEq ER Tab PO STA (09:00)
--- NOTE | 2017-10-09 09:04 | CP.PCM.PN ---
<Susy John - Last Filed: 10/09/17 09:00> Subjective - Date & Time of Evaluation Date of Evaluation: 10/09/17 Time of Evaluation: 07:30 - Subjective Subjective: PGY4 Gi Follow-up Pt seen and examined bedside No complaints in the AM tolerating diet denies any BM Denies any abd pain Denies any fever, chills or diaphoresis ROS: 10 point ROS conducted, neg other than above Objective - Vital Signs/Intake and Output Vital Signs (last 24 hours): Temp Pulse Resp BP Pulse Ox 98.4 F 115 H 19 135/66 97 10/09/17 06:00 10/09/17 06:00 10/09/17 06:00 10/09/17 06:00 10/09/17 06:00 Intake and Output: 10/09/17 10/09/17 06:59 18:59 Intake Total 360 Output Total 3 Balance 357 - Medications Medications: Current Medications Amlodipine Besylate (Norvasc) 10 mg PO DAILY [facility] Last Admin: 10/08/17 18:55 Dose: 10 mg Diphenhydramine HCl (Benadryl) 25 mg IVP Q6H PRN PRN Reason: Anaphylaxis Last Admin: 10/08/17 23:21 Dose: 25 mg Pantoprazole Sodium (Protonix 40mg Ivpb) 40 mg in 100 mls @ 20 mls/hr IVPB .Q5H [facility] Last Admin: 10/09/17 07:22 Dose: 20 mls/hr Sodium Chloride (Sodium Chloride 0.45%) 1,000 mls @ 80 mls/hr IV .[id number] [facility] Last Admin: 10/08/17 18:55 Dose: 80 mls/hr Aztreonam (Azactam 1 Gm) 100 mls @ 100 mls/hr IVPB Q8 [facility] PRN Reason: Protocol Stop: 10/16/17 06:01 Last Admin: 10/09/17 05:38 Dose: 100 mls/hr Metronidazole (Flagyl) 500 mg in 100 mls @ 100 mls/hr IVPB Q8 [facility] PRN Reason: Protocol Last Admin: 10/09/17 05:10 Dose: 100 mls/hr Insulin Human Regular (Humulin R High) 0 units SC ACHS [facility] PRN Reason: Protocol Last Admin: 10/09/17 08:45 Dose: 2 units Ketorolac Tromethamine (Toradol) 30 mg IVP Q8H PRN PRN Reason: Pain, moderate (4-7) Last Admin: 10/08/17 17:48 Dose: 30 mg Ondansetron HCl (Zofran Inj) 4 mg IVP Q4 PRN PRN Reason: Nausea/Vomiting Last Admin: 10/08/17 09:21 Dose: 4 mg - Labs Labs: 10/09/17 05:30 10/09/17 05:30 PT 12.4 SECONDS (9.4-12.5) 10/07/17 22:50 INR 1.09 (0.93-1.08) H 10/07/17 22:50 APTT 20.8 Seconds (25.1-36.5) L 10/07/17 22:50 - Constitutional Appears: Well, No Acute Distress - Head Exam Head Exam: ATRAUMATIC, NORMOCEPHALIC - Eye Exam Eye Exam: Normal appearance - ENT Exam ENT Exam: Mucous Membranes Moist - Respiratory Exam Respiratory Exam: Clear to Ausculation Bilateral, NORMAL BREATHING PATTERN. absent: Rales, Rhonchi, Wheezes, Respiratory Distress - Cardiovascular Exam Cardiovascular Exam: REGULAR RHYTHM, +S1, +S2 - GI/Abdominal Exam GI & Abdominal Exam: Soft, Normal Bowel Sounds - Extremities Exam Extremities Exam: absent: Joint Swelling, Pedal Edema - Neurological Exam Neurological Exam: Alert, Awake - Psychiatric Exam Psychiatric exam: Normal Affect, Normal Mood - Skin Skin Exam: Dry, Intact, Normal Color, Warm Assessment and Plan - Assessment and Plan (Free Text) Assessment: Patient is a 77 y/o with PMHx of Alzheimer dementia, DM, HLD, cva (on plavix), htn, diverticulitis who was brought in by her son due to abdominal pain and worsening of dementia. Patient was noted to be spitting dark particles, thus Gi is consulted for possible upper gi bleeding. Patient had CT abdomen and pelvis revealing mod hiatal hernia, thickening in distal esophagus, hepatic lesion suggestive of hemangiomas, thickening of sigmoid and rectal colon, cholelithiasis. 1- Epigastric and right upper quadrant abdominal pain with emesis 2- Anemia r/o upper GI bleeding 3- MICHELE 4- dementia 5- h/o cva on plavix for secondary prevention Plan: - Continue ppi and anti-emetic prn - Patient recently had EGD/colonoscopy; EGD WNL; colonoscopy revealed sessile polyp path pending < 1 cm in sigmoid - Surgery following for cholelithiasis, ordered hida scan, follow up with surgery for recommendations - Nephrology following for michele - Continue to monitor h/h - On IV hydration and toradol prn for pain. - no acute intervention indicated at this time - will sign off Patient seen, examined and case discussed with Dr García. <Greg García - Last Filed: 10/09/17 10:25> Objective - Vital Signs/Intake and Output Vital Signs (last 24 hours): Temp Pulse Resp BP Pulse Ox 98.4 F 115 H 19 125/98 H 97 10/09/17 06:00 10/09/17 06:00 10/09/17 06:00 10/09/17 09:48 10/09/17 06:00 Intake and Output: 10/09/17 10/09/17 06:59 18:59 Intake Total 360 150 Output Total 3 Balance 357 150 - Medications Medications: Current Medications Amlodipine Besylate (Norvasc) 10 mg PO DAILY [facility] Last Admin: 10/09/17 09:48 Dose: 10 mg Diphenhydramine HCl (Benadryl) 25 mg IVP Q6H PRN PRN Reason: Anaphylaxis Last Admin: 10/08/17 23:21 Dose: 25 mg Pantoprazole Sodium (Protonix 40mg Ivpb) 40 mg in 100 mls @ 20 mls/hr IVPB .Q5H [facility] Last Admin: 10/09/17 07:22 Dose: 20 mls/hr Sodium Chloride (Sodium Chloride 0.45%) 1,000 mls @ 80 mls/hr IV .[id number] [facility] Last Admin: 10/08/17 18:55 Dose: 80 mls/hr Aztreonam (Azactam 1 Gm) 100 mls @ 100 mls/hr IVPB Q8 [facility] PRN Reason: Protocol Stop: 10/16/17 06:01 Last Admin: 10/09/17 05:38 Dose: 100 mls/hr Metronidazole (Flagyl) 500 mg in 100 mls @ 100 mls/hr IVPB Q8 [facility] PRN Reason: Protocol Last Admin: 10/09/17 05:10 Dose: 100 mls/hr Insulin Human Regular (Humulin R High) 0 units SC ACHS [facility] PRN Reason: Protocol Last Admin: 10/09/17 08:45 Dose: 2 units Ketorolac Tromethamine (Toradol) 15 mg IVP Q8H PRN PRN Reason: Pain, moderate (4-7) Ondansetron HCl (Zofran Inj) 4 mg IVP Q4 PRN PRN Reason: Nausea/Vomiting Last Admin: 10/08/17 09:21 Dose: 4 mg - Labs Labs: 10/09/17 05:30 10/09/17 05:30 PT 12.4 SECONDS (9.4-12.5) 10/07/17 22:50 INR 1.09 (0.93-1.08) H 10/07/17 22:50 APTT 20.8 Seconds (25.1-36.5) L 10/07/17 22:50 Attending/Attestation - Attestation I have personally seen and examined this patient.: Yes I have fully participated in the care of the patient.: Yes I have reviewed all pertinent clinical information, including history, physical exam and plan: Yes Notes (Text): 10/09/17 10:24 77 year old female with h/o DM, CVA, HLD, HTN, Diverticulosis a/w abdominal pain, found to have gallstones. 1. Abdominal pain 2. Cholelithiasis Plan: - continue pantoprazole 40 mg daily -s/p recent EGD/Colonoscopy (unremarkable) -HIDA negative -patient is a poor historian, she may have biliary colic -low fat diet -may consider a trial of ursodiol if surgery is not an option -splenic artery aneurysm noted, consider vascular surgery consultation
--- NOTE | 2017-10-09 09:07 | CP.PCM.PN ---
Subjective - Date & Time of Evaluation Date of Evaluation: 10/09/17 Time of Evaluation: 07:35 - Subjective Subjective: General Surgery Progress Note for Dr. Miranda Patient seen and examined at bedside. A care-taker is also present at bedside. Patient is spitting in a plastic cup. Patient endorses lower quandrant abdominal pain, but on second encounter reports she has RUQ pain. Patient denies any nausea, vomiting, or diarrhea. Patient reports her lip is sore because she is allergic to penicillin. Chart review indicates patient has a baseline dementia. Objective - Vital Signs/Intake and Output Vital Signs (last 24 hours): Temp Pulse Resp BP Pulse Ox 98.4 F 115 H 19 135/66 97 10/09/17 06:00 10/09/17 06:00 10/09/17 06:00 10/09/17 06:00 10/09/17 06:00 Intake and Output: 10/09/17 10/09/17 06:59 18:59 Intake Total 360 Output Total 3 Balance 357 - Medications Medications: Current Medications Amlodipine Besylate (Norvasc) 10 mg PO DAILY [facility] Last Admin: 10/08/17 18:55 Dose: 10 mg Diphenhydramine HCl (Benadryl) 25 mg IVP Q6H PRN PRN Reason: Anaphylaxis Last Admin: 10/08/17 23:21 Dose: 25 mg Pantoprazole Sodium (Protonix 40mg Ivpb) 40 mg in 100 mls @ 20 mls/hr IVPB .Q5H [facility] Last Admin: 10/09/17 07:22 Dose: 20 mls/hr Sodium Chloride (Sodium Chloride 0.45%) 1,000 mls @ 80 mls/hr IV .[id number] [facility] Last Admin: 10/08/17 18:55 Dose: 80 mls/hr Aztreonam (Azactam 1 Gm) 100 mls @ 100 mls/hr IVPB Q8 [facility] PRN Reason: Protocol Stop: 10/16/17 06:01 Last Admin: 10/09/17 05:38 Dose: 100 mls/hr Metronidazole (Flagyl) 500 mg in 100 mls @ 100 mls/hr IVPB Q8 [facility] PRN Reason: Protocol Last Admin: 10/09/17 05:10 Dose: 100 mls/hr Insulin Human Regular (Humulin R High) 0 units SC ACHS [facility] PRN Reason: Protocol Last Admin: 10/09/17 08:45 Dose: 2 units Ketorolac Tromethamine (Toradol) 30 mg IVP Q8H PRN PRN Reason: Pain, moderate (4-7) Last Admin: 10/08/17 17:48 Dose: 30 mg Ondansetron HCl (Zofran Inj) 4 mg IVP Q4 PRN PRN Reason: Nausea/Vomiting Last Admin: 10/08/17 09:21 Dose: 4 mg - Labs Labs: 10/09/17 05:30 10/09/17 05:30 PT 12.4 SECONDS (9.4-12.5) 10/07/17 22:50 INR 1.09 (0.93-1.08) H 10/07/17 22:50 APTT 20.8 Seconds (25.1-36.5) L 10/07/17 22:50 - Constitutional Appears: Non-toxic - Head Exam Head Exam: ATRAUMATIC, NORMOCEPHALIC - Eye Exam Eye Exam: EOMI, Normal appearance - ENT Exam Additional comments: lower lip appears dry and cracked - Respiratory Exam Respiratory Exam: NORMAL BREATHING PATTERN. absent: Accessory Muscle Use - Cardiovascular Exam Cardiovascular Exam: Tachycardia - GI/Abdominal Exam GI & Abdominal Exam: Soft, Normal Bowel Sounds. absent: Guarding, Rebound - Extremities Exam Extremities Exam: Normal Inspection. absent: Calf Tenderness - Back Exam Back Exam: NORMAL INSPECTION. absent: CVA tenderness (L), CVA tenderness (R) - Neurological Exam Neurological Exam: Alert, Awake - Psychiatric Exam Psychiatric exam: Normal Affect, Normal Mood - Skin Skin Exam: Dry, Intact, Normal Color, Warm Assessment and Plan - Assessment and Plan (Free Text) Assessment: 77 year female who presented to [facility] for RUQ pain. Plan: HIDA scan visualized the gall bladder Patient still has nausea, 2 hours after breakfast and was dry-heaving. This is not likely acute cholecystits. Further recommendations per Dr. Miranda.
--- NOTE | 2017-10-09 10:45 | PN ---
DATE: SUBJECTIVE: I saw her resting comfortably in bed. She slept fairly well. She is talking Korean, a little bit confused. She is being seen by GI, Surgery, Renal. She is eating some. No acute complaints at this time. PHYSICAL EXAMINATION: VITAL SIGNS: She has a 98.4 temp, 90 pulse, 135/66 blood pressure, 19 respiratory rate, 97% sat on room air. HEENT: Head is atraumatic, normocephalic. Throat is moist. NECK: Supple. HEART: Regular rate. LUNGS: Clear to auscultation with decreased breath sounds. ABDOMEN: Soft, morbidly obese, nontender. Positive bowel sounds. No guarding, no rebound. EXTREMITIES: No edema. MEDICATIONS: She is currently on Azactam, Benadryl, Flagyl, insulin, Norvasc, Protonix, IV fluids, Toradol and Zofran. LABORATORY DATA: She has a 14.6 white count when elevated from 12.5, she is now on Azactam by Infectious Disease; hemoglobin is 9.6, hematocrit 28.8, platelets of 215. INR is 1.09. Chemistry: Sodium 147; potassium 3.1, which was replaced; BUN 24, better; creatinine 1.5, better; GFR 33, better; sugar is 161; calcium is 10.7, better. Total bili is 0.7, AST is 29, ALT is 24, alk phos 72, total protein 6.6. ASSESSMENT AND PLAN: She is being seen by Gastroenterology, Surgery, Renal, Infectious Disease. We are checking her labs. I just had a long discussion with family. They wanted to have endoscopy, even though it was done in August, I think there might be a cancer that worried. They were also want to know about the splenic aneurysm, they want to know what to do about that. I will discuss this with Gastroenterology and Surgery. We will continue aggressive treatment and care with antibiotics. Cornell Nevarez DO
--- NOTE | 2017-10-09 14:24 | CP.PCM.PN ---
Subjective - Date & Time of Evaluation Date of Evaluation: 10/09/17 Time of Evaluation: 14:23 - Subjective Subjective: renal follow up note please call us at [phone] if any qs s: no events overnight, complains of nausea vitals reviewed sitting in bed heent normal no resp distress lungs clear s1s2 present abd soft no edema cooperative no rash plan : ARF / GIB / Anemia / Hypertension/ Hypokalemia/hypercalcemia Plan: MICHELE - not clear if she has any underlying CKD. Likely has some michele from hypovolemia from emesis + NSAID use. Agree w/ gentle hydration as ordered already. urine studies pending anemia with hypercalcemia: i have ordered myeloma work up hypokalemia replace and recheck anemia: stable transfuse prn bp acceptable for now f/u gi Objective - Vital Signs/Intake and Output Vital Signs (last 24 hours): Temp Pulse Resp BP Pulse Ox 98.5 F 101 H 20 160/83 H 97 10/09/17 12:00 10/09/17 12:00 10/09/17 12:00 10/09/17 12:00 10/09/17 06:00 Intake and Output: 10/09/17 10/09/17 06:59 18:59 Intake Total 360 150 Output Total 3 Balance 357 150 - Medications Medications: Current Medications Amlodipine Besylate (Norvasc) 10 mg PO DAILY [facility] Last Admin: 10/09/17 09:48 Dose: 10 mg Diphenhydramine HCl (Benadryl) 25 mg IVP Q6H PRN PRN Reason: Anaphylaxis Last Admin: 10/08/17 23:21 Dose: 25 mg Home Med (Home Med) 1 unit OU DAILY [facility] Pantoprazole Sodium (Protonix 40mg Ivpb) 40 mg in 100 mls @ 20 mls/hr IVPB .Q5H [facility] Last Admin: 10/09/17 07:22 Dose: 20 mls/hr Sodium Chloride (Sodium Chloride 0.45%) 1,000 mls @ 80 mls/hr IV .[id number] [facility] Last Admin: 10/08/17 18:55 Dose: 80 mls/hr Aztreonam (Azactam 1 Gm) 100 mls @ 100 mls/hr IVPB Q8 [facility] PRN Reason: Protocol Stop: 10/16/17 06:01 Last Admin: 10/09/17 05:38 Dose: 100 mls/hr Metronidazole (Flagyl) 500 mg in 100 mls @ 100 mls/hr IVPB Q8 [facility] PRN Reason: Protocol Last Admin: 10/09/17 13:15 Dose: 100 mls/hr Insulin Human Regular (Humulin R High) 0 units SC ACHS [facility] PRN Reason: Protocol Last Admin: 10/09/17 13:16 Dose: 1 units Ketorolac Tromethamine (Toradol) 15 mg IVP Q8H PRN PRN Reason: Pain, moderate (4-7) Last Admin: 10/09/17 13:15 Dose: 15 mg Ondansetron HCl (Zofran Inj) 4 mg IVP Q4 PRN PRN Reason: Nausea/Vomiting Last Admin: 10/09/17 10:28 Dose: 4 mg - Labs Labs: 10/09/17 05:30 10/09/17 05:30 PT 12.4 SECONDS (9.4-12.5) 10/07/17 22:50 INR 1.09 (0.93-1.08) H 10/07/17 22:50 APTT 20.8 Seconds (25.1-36.5) L 10/07/17 22:50
--- NOTE | 2017-10-09 17:22 | CP.PCM.CON ---
History of Present Illness - History of Present Illness History of Present Illness: 77 year old female with PMH of alzheimer's dementia, DM, dyslipidemia, HTN, history of diverticulitis, S/P hemorrhoidectomy, S/P hysterectomy, S/P carpal tunnel surgery was brought in to [facility] because of poor PO intake and some vague abdominal pain for several days. She has been taking NSAIDs which provide minimal relief. There is occasional blood in the stool. There is no note of fever, no vomiting, no convulsions, no loss of consciousness, no diarrhea. Full ROS is unobtainable because of the patient's dementia. In the ED, the patient underwent CT scan of the abdomen and pelvis which revealed possible proctocolitis. HIDA scan was done which was negative. Infectious Diseases consult is requested to further evaluate and manage. Review of Systems - Review of Systems All systems: reviewed and no additional remarkable complaints except (as per HPI ) Past Patient History - Tetanus Immunizations Tetanus Immunization: Unknown - Past Social History Smoking Status: Never Smoked - CARDIAC Hx Cardiac Disorders: Yes Hx Hypercholesterolemia: Yes Hx Hypertension: Yes - NEUROLOGICAL Hx Neurological Disorder: Yes Hx Alzheimer's Disease: Yes Hx Dementia: Yes - HEENT Hx HEENT Problems: No - RENAL Hx Chronic Kidney Disease: No - ENDOCRINE/METABOLIC Hx Endocrine Disorders: Yes Hx Diabetes Mellitus Type 2: Yes - HEMATOLOGICAL/ONCOLOGICAL Hx Blood Disorders: No - INTEGUMENTARY Hx Dermatological Problems: No - MUSCULOSKELETAL/RHEUMATOLOGICAL Hx Musculoskeletal Disorders: No Hx Falls: Yes - GASTROINTESTINAL Hx Gastrointestinal Disorders: Yes (CHOLELITHIASIS,GI BLEED,DIVERTICULITIS, HIATAL HERNIA) - GENITOURINARY/GYNECOLOGICAL Hx Genitourinary Disorders: No - PSYCHIATRIC Hx Psychophysiologic Disorder: No Hx Substance Use: No - SURGICAL HISTORY Hx Surgeries: Yes (HEMORRHOIDECTOMY,HYSTERECTOMY,BILATERAL CARPAL TUNNEL SX.) Other/Comment: fibroid removal Meds Allergies/Adverse Reactions: Allergies Allergy/AdvReac Type Severity Reaction Status Date / Time piperacillin [From Zosyn] Allergy Mild SWELLING Verified 10/08/17 15:09 iodine Allergy ANAPHYLAXIS Verified 10/08/17 14:44 - Medications Medications: Current Medications Amlodipine Besylate (Norvasc) 10 mg PO DAILY [facility] Last Admin: 10/08/17 18:55 Dose: 10 mg Diphenhydramine HCl (Benadryl) 25 mg IVP Q6H PRN PRN Reason: Anaphylaxis Last Admin: 10/08/17 23:21 Dose: 25 mg Pantoprazole Sodium (Protonix 40mg Ivpb) 40 mg in 100 mls @ 20 mls/hr IVPB .Q5H [facility] Last Admin: 10/08/17 19:27 Dose: 20 mls/hr Sodium Chloride (Sodium Chloride 0.45%) 1,000 mls @ 80 mls/hr IV .[id number] [facility] Last Admin: 10/08/17 18:55 Dose: 80 mls/hr Aztreonam (Azactam 1 Gm) 100 mls @ 100 mls/hr IVPB Q8 [facility] PRN Reason: Protocol Stop: 10/16/17 06:01 Metronidazole (Flagyl) 500 mg in 100 mls @ 100 mls/hr IVPB Q8 [facility] PRN Reason: Protocol Insulin Human Regular (Humulin R High) 0 units SC ACHS [facility] PRN Reason: Protocol Last Admin: 10/08/17 23:18 Dose: Not Given Ketorolac Tromethamine (Toradol) 30 mg IVP Q8H PRN PRN Reason: Pain, moderate (4-7) Last Admin: 10/08/17 17:48 Dose: 30 mg Ondansetron HCl (Zofran Inj) 4 mg IVP Q4 PRN PRN Reason: Nausea/Vomiting Last Admin: 10/08/17 09:21 Dose: 4 mg Physical Exam - Constitutional Appears: Non-toxic, Chronically Ill - Head Exam Head Exam: NORMAL INSPECTION - ENT Exam ENT Exam: Mucous Membranes Moist - Neck Exam Neck exam: Negative for: Meningismus - Respiratory Exam Respiratory Exam: Decreased Breath Sounds - Cardiovascular Exam Cardiovascular Exam: +S1, +S2 - GI/Abdominal Exam GI & Abdominal Exam: Soft. absent: Tenderness Results - Vital Signs Recent Vital Signs: Last Vital Signs Temp 99.1 F 10/08/17 18:31 Pulse 85 10/08/17 23:22 Resp 18 10/08/17 18:31 BP 175/100 H 10/08/17 23:22 Pulse Ox 97 10/08/17 12:53 - Labs Result Diagrams: 10/09/17 05:30 10/09/17 05:30 Labs: Laboratory Results - last 24 hr 10/08/17 10/08/17 10:30 21:55 Sodium 140 Potassium 3.6 Chloride 103 Carbon Dioxide 17 L Anion Gap 23 H BUN 32 H Creatinine 2.0 H Est GFR ( Amer) 29 Est GFR (Non-Af Amer) 24 POC Glucose (mg/dL) 158 H Random Glucose 246 H Calcium 11.5 H Phosphorus 3.0 Magnesium 1.6 L Assessment & Plan - Assessment and Plan (Free Text) Plan: Assessment Systemic Inflammatory response syndrome, consider sepsis due to proctocolitis alzheimer's dementia DM dyslipidemia HTN history of diverticulitis S/P hemorrhoidectomy S/P hysterectomy S/P carpal tunnel surgery Plan Started patient on Zyvox, Azactam and Flagyl, and check stool cx and blood cx will monitor clinically
[2017-10-09 18:28] LABS: URINE BILIRUBIN NEGATIVE (NEGATIVE); URINE BLOOD SMALL (NEGATIVE); URINE GLUCOSE (UA) NEGATIVE (NEGATIVE); URINE LEUKOCYTE ESTERASE NEGATIVE Leu/uL (NEGATIVE); URINE NITRATE NEGATIVE (NEGATIVE); URINE PROTEIN TRACE mg/dL (<30 mg/dL); URINE UROBILINOGEN 0.2 E.U./dL (<1 E.U./dL)
[2017-10-09 18:35] LABS: URINE APPEARANCE CLEAR (CLEAR); URINE COLOR LIGHT YELLOW (YELLOW)
[2017-10-09 18:47] LABS: URINE RBC 0 - 2 /hpf (0-2); URINE WBC NEGATIVE /hpf (0-6)
[2017-10-09 18:48] LABS: URINE BACTERIA FEW (NEG)
--- NOTE | 2017-10-09 22:36 | CON ---
DATE: 10/09/2017 CARDIOLOGY CONSULTATION HISTORY OF PRESENT ILLNESS: The patient is a 77-year-old woman who presents with right upper quadrant pain. No shortness of breath, no chest pain noted. According to her daughter, the patient has had a CVA in the past. No cardiac history. She had a recent echocardiogram performed at [facility], which was reported as being unremarkable. She denies shortness of breath and denies edema in the lower extremities. SOCIAL HISTORY: The patient lives at home. REVIEW OF SYSTEMS: Fourteen-point review of systems is reviewed in detail. No cardiac symptomatology noted. PHYSICAL EXAMINATION: VITAL SIGNS: Blood pressure 125/90, heart rates in the 90s. NECK: Negative JVD. LUNGS: Without rales. HEART: S1, S2. EXTREMITIES: Without edema. EKG shows normal sinus rhythm with nonspecific ST-T changes. LABORATORY DATA: Hemoglobin is 9, potassium is 3.1, BUN and creatinine is 24 and 1.5 with a glucose of 174. Troponins are negative x1. IMPRESSION: 1. Right upper quadrant pain. 2. Borderline diabetes mellitus. 3. Hypercholesterolemia. 4. Hypertension. 5. History of cerebrovascular accident in the past. Given these findings, there is no active cardiac issues at this time. There is no evidence for congestive heart failure or ongoing angina. We will discontinue telemetry today. Nabil George MD
[2017-10-09] MEDS ORDERED: Morphine 2 mg/ml ISec IVP STA (23:43)
[2017-10-10] MEDS: DiphenhydrAMINE 50 mg/ml Inj IVP PRN ×2 (00:53→21:02)
[2017-10-10] MEDS: Pantoprazole 40mg/100mL NS 40 MG/100 ML BAG IVPB SCH (05:21)
[2017-10-10] MEDS: metroNIDAZOLE IV 500 mg/100 ml 500 MG/100 ML BAG IVPB SCH ×3 (06:25→21:01)
[2017-10-10] MEDS: Aztreonam 1 Gm in NS 100mL 100 ML IVPB SCH ×3 (06:26→21:00)
[2017-10-10 07:11] LABS: HEMOGLOBIN 8.9 g/dL (12.0-16.0); MEAN CELL VOLUME 90.1 fl (80.0-105.0); MEAN CORPUSCULAR HEMOGLOBIN 30.5 pg (25.0-35.0); MEAN CORPUSCULAR HGB CONC 33.8 g/dl (31.0-37.0); MEAN PLATELET VOLUME 10.3 fl (7.0-11.0); RBC 2.92 10^6/uL (3.5-6.1); RED CELL DISTRIBUTION WIDTH 13.3 % (11.5-14.5); WHITE BLOOD COUNT 9.2 10^3/ul (4.5-11.0)
[2017-10-10 07:41] LABS: ALB/GLOB RATIO 1.2 (1.1-1.8); ALBUMIN 3.4 g/dL (3.0-4.8); CALCIUM 10.1 mg/dL (8.4-10.5)
[2017-10-10] MEDS: Insulin Reg-HIGH-Coverage SC SCH ×4 (08:18→21:04)
[2017-10-10] MEDS ORDERED: Potassium Chloride 20 mEq ER Tab PO ONE (08:47)
--- NOTE | 2017-10-10 08:51 | CP.PCM.PN ---
Subjective - Date & Time of Evaluation Date of Evaluation: 10/10/17 Time of Evaluation: 07:20 - Subjective Subjective: General Surgery Progress Note for Dr. Miranda Patient seen and examined at bedside. Patient reports some RUQ pain, but denies nausea and vomting in the interim. Pateint reports tolerating diet. Nurse reports no events overnight. Objective - Vital Signs/Intake and Output Vital Signs (last 24 hours): Temp Pulse Resp BP Pulse Ox 97.9 F 115 H 20 147/67 99 10/10/17 00:01 10/10/17 00:01 10/10/17 00:01 10/10/17 00:01 10/10/17 00:01 Intake and Output: 10/10/17 10/10/17 06:59 18:59 Intake Total 120 Balance 120 - Medications Medications: Current Medications Amlodipine Besylate (Norvasc) 10 mg PO DAILY [facility] Last Admin: 10/09/17 09:48 Dose: 10 mg Diphenhydramine HCl (Benadryl) 25 mg IVP Q6H PRN PRN Reason: Anaphylaxis Last Admin: 10/10/17 00:53 Dose: 25 mg Home Med (Home Med) 1 unit OU DAILY [facility] Pantoprazole Sodium (Protonix 40mg Ivpb) 40 mg in 100 mls @ 20 mls/hr IVPB .Q5H [facility] Last Admin: 10/10/17 05:21 Dose: 20 mls/hr Sodium Chloride (Sodium Chloride 0.45%) 1,000 mls @ 80 mls/hr IV .[id number] [facility] Last Admin: 10/09/17 22:04 Dose: Not Given Aztreonam (Azactam 1 Gm) 100 mls @ 100 mls/hr IVPB Q8 [facility] PRN Reason: Protocol Stop: 10/16/17 06:01 Last Admin: 10/10/17 06:26 Dose: 100 mls/hr Metronidazole (Flagyl) 500 mg in 100 mls @ 100 mls/hr IVPB Q8 [facility] PRN Reason: Protocol Last Admin: 10/10/17 06:25 Dose: 100 mls/hr Insulin Human Regular (Humulin R High) 0 units SC ACHS [facility] PRN Reason: Protocol Last Admin: 10/10/17 08:18 Dose: Not Given Ketorolac Tromethamine (Toradol) 15 mg IVP Q8H PRN PRN Reason: Pain, moderate (4-7) Last Admin: 10/10/17 05:00 Dose: 15 mg Ondansetron HCl (Zofran Inj) 4 mg IVP Q4 PRN PRN Reason: Nausea/Vomiting Last Admin: 10/09/17 21:03 Dose: 4 mg Potassium Chloride (K-Dur 20 Meq Er Tab) 20 meq PO ONCE ONE Stop: 10/10/17 08:48 - Labs Labs: 10/10/17 06:30 10/10/17 06:30 PT 12.4 SECONDS (9.4-12.5) 10/07/17 22:50 INR 1.09 (0.93-1.08) H 10/07/17 22:50 APTT 20.8 Seconds (25.1-36.5) L 10/07/17 22:50 - Constitutional Appears: Non-toxic, No Acute Distress - Head Exam Head Exam: ATRAUMATIC, NORMOCEPHALIC - Eye Exam Eye Exam: EOMI, Normal appearance - ENT Exam ENT Exam: Mucous Membranes Moist, Normal Oropharynx - Neck Exam Neck Exam: Normal Inspection - Respiratory Exam Respiratory Exam: NORMAL BREATHING PATTERN. absent: Accessory Muscle Use - Cardiovascular Exam Cardiovascular Exam: Tachycardia - GI/Abdominal Exam GI & Abdominal Exam: Soft. absent: Guarding, Rigid, Rebound Additional comments: negative fraser's sign - Extremities Exam Extremities Exam: Normal Inspection. absent: Calf Tenderness - Neurological Exam Neurological Exam: Alert, Awake - Psychiatric Exam Psychiatric exam: Normal Affect, Normal Mood - Skin Skin Exam: Cyanosis, Dry, Intact, Normal Color, Warm Assessment and Plan - Assessment and Plan (Free Text) Assessment: 77 year old female who presented to [facility] with RUQ. Plan: - HIDA scan negative for acute cholecystitis - No surgical intervention planned at this time. - Thank you for allowing us to participate in the care of this patient Further recommendations per Dr. Miranda
--- NOTE | 2017-10-10 09:34 | CON ---
DATE: 10/09/2017 HISTORY OF PRESENT ILLNESS: The patient is seen in the emergency room again this morning. The patient speaks Ukrainian, but I am unable to understand her at all. Her white count was 12; this is up to 14 today. The BUN was elevated at 32, creatinine 2.0. BUN is 24 and creatinine is 1.5 today. Her glucose is 174. Liver functions are otherwise normal. CAT scan is normal. PHYSICAL EXAMINATION: ABDOMEN: Soft, nontender, although she is complaining of epigastric pain. There is nothing remarkable. Her HIDA was done and was normal. The CAT scan also was normal. IMPRESSION AND PLAN: I have no surgical intention. GI consult would be appreciated. Delbert Miranda MD
[2017-10-10] MEDS: [UNRECOGNIZED DRUG - OTHER] OU SCH (09:58)
[2017-10-10] MEDS ORDERED: MEMANTINE HCL 28 MG PO SCH (10:00)
--- NOTE | 2017-10-10 10:01 | CP.PCM.PN ---
Subjective - Date & Time of Evaluation Date of Evaluation: 10/10/17 Time of Evaluation: 09:57 - Subjective Subjective: renal follow up note please call us at [phone] if any qs s: no events overnight denies any complains vitals reviewed gen sitting in bed heent normal neck supple no resp distress lungs clear s1s2 present abd soft no edema neuro follows commands psych nml affect no rash plan : ARF / GIB / Anemia / Hypertension/ Hypokalemia/hypercalcemia Plan: MICHELE - continue gentle hydration cr is improving ~ 1 gram of protein will hold toradol as michele still resolving anemia with hypercalcemia: i have ordered myeloma work up including spep, ipth, sflc, uimmunofixation k stable anemia: stable transfuse prn f/u gi workup Objective - Vital Signs/Intake and Output Vital Signs (last 24 hours): Temp Pulse Resp BP Pulse Ox 98.6 F 98 H 20 162/73 H 93 L 10/10/17 08:00 10/10/17 09:43 10/10/17 08:00 10/10/17 09:43 10/10/17 08:00 Intake and Output: 10/10/17 10/10/17 06:59 18:59 Intake Total 120 Balance 120 - Medications Medications: Current Medications Amlodipine Besylate (Norvasc) 10 mg PO DAILY [facility] Last Admin: 10/10/17 09:43 Dose: 10 mg Atorvastatin Calcium (Lipitor) 80 mg PO DAILY [facility] Last Admin: 10/10/17 09:42 Dose: 80 mg Clonidine HCl (Catapres) 0.1 mg PO BID [facility] Last Admin: 10/10/17 09:41 Dose: 0.1 mg Clopidogrel Bisulfate (Plavix) 75 mg PO DAILY [facility] Cyproheptadine HCl (Periactin) 4 mg PO DAILY [facility] Last Admin: 10/10/17 09:43 Dose: 4 mg Diphenhydramine HCl (Benadryl) 25 mg IVP Q6H PRN PRN Reason: Anaphylaxis Last Admin: 10/10/17 00:53 Dose: 25 mg Home Med (Home Med) 1 unit OU DAILY [facility] Sodium Chloride (Sodium Chloride 0.45%) 1,000 mls @ 80 mls/hr IV .[id number] [facility] Last Admin: 10/09/17 22:04 Dose: Not Given Aztreonam (Azactam 1 Gm) 100 mls @ 100 mls/hr IVPB Q8 [facility] PRN Reason: Protocol Stop: 10/16/17 06:01 Last Admin: 10/10/17 06:26 Dose: 100 mls/hr Metronidazole (Flagyl) 500 mg in 100 mls @ 100 mls/hr IVPB Q8 [facility] PRN Reason: Protocol Last Admin: 10/10/17 06:25 Dose: 100 mls/hr Insulin Human Regular (Humulin R High) 0 units SC ACHS [facility] PRN Reason: Protocol Last Admin: 10/10/17 08:18 Dose: Not Given Ketorolac Tromethamine (Toradol) 15 mg IVP Q8H PRN PRN Reason: Pain, moderate (4-7) Last Admin: 10/10/17 05:00 Dose: 15 mg Metoprolol Tartrate (Lopressor) 50 mg PO BID [facility] Last Admin: 10/10/17 09:43 Dose: 50 mg Mirtazapine (Remeron) 15 mg PO DAILY [facility] Last Admin: 10/10/17 09:41 Dose: 15 mg Non-Formulary Medication (Memantine Hcl [Namenda Xr]) 28 mg PO DAILY [facility] Ondansetron HCl (Zofran Inj) 4 mg IVP Q4 PRN PRN Reason: Nausea/Vomiting Last Admin: 10/09/17 21:03 Dose: 4 mg Pantoprazole Sodium (Protonix Ec Tab) 40 mg PO 0600 [facility] - Labs Labs: 10/10/17 06:30 10/10/17 06:30 PT 12.4 SECONDS (9.4-12.5) 10/07/17 22:50 INR 1.09 (0.93-1.08) H 10/07/17 22:50 APTT 20.8 Seconds (25.1-36.5) L 10/07/17 22:50
--- NOTE | 2017-10-10 11:38 | PN ---
DATE: SUBJECTIVE: I saw her in her room. She is resting in bed. She is talking in Faroese. I got a rigger. She has got multiple problems. She came in with like a right upper quadrant abdominal pain with nausea and vomiting. Also, there was some blood and some stool. Her kidney functions are elevated. She is a diabetic. She has some renal insufficiency and she is not really eating that well. She also has dementia. She has multiple consults on the case. She has doctors, Infectious Disease, Cardiology, Surgery, GI, Renal. I have spoken to family at length this morning, the son and the daughter. They had many questions, wanted many medications put back on her list of medications. I try and limit the amount of medications needed, but they wanted these medications back on, so I did not argue with them. PHYSICAL EXAMINATION: VITAL SIGNS: She has 98.6 temp, 98 pulse, 162/73 blood pressure, 20 respiratory rate and 99% O2 sat on room air. HEENT: Head is atraumatic, normocephalic. GENERAL: She is alert. She is talking. I discussed with a rigger. She has got abdominal pain. She does not want to eat, but no real chest pain or shortness of breath and for the most part comfortable in bed. HEART: Regular rate. LUNGS: Decreased breath sounds, but clear. ABDOMEN: Soft. Positive bowel sounds. No guarding. No rebound. EXTREMITIES: Have no edema. I am trying to get her out of bed to chair, get Physical Therapy involved. MEDICATIONS: She is currently on Azactam by Infectious Disease, Benadryl, Catapres, Flagyl IV, insulin coverage, Lipitor, Lopressor, Namenda, Norvasc, Periactin instead of Megace. She had been on Megace for 4 months, I think that could be a problem. Plavix, Protonix, Remeron, IV fluids, Toradol, Zofran and potassium replacement. LABORATORY DATA: Today, she has a 9.2 white count, the best it has been, it was very high when she came in, 12 and 14.6. Hemoglobin did drop to 8.9, it was 10.9 when she came in and they said she was 13 a few months back. Hematocrit is 26.3, platelets of 239. The family wants an upper and lower endoscopy done. I have spoken to GI yesterday. They thought that she had it done in August, did not want to repeat it in the hospital, but the family wants it done. I will talk to Gastroenterology again. 143 sodium; potassium 3.5, replaced the potassium; BUN 70; creatinine 1.3. The kidneys are coming back very nicely. GFR is up to 40, sugar is 157, magnesium 1.6, total bili is 0.6, AST is 30, ALT is 18, alk phos is 70, total protein 6.2. The urine also was negative at this time. ASSESSMENT AND PLAN: We are trying to keep up with all her issues. She has multiple issues and hopefully she will improve. The kidneys are improving. She might need a transfusion if the hemoglobin continues to drop and I will discuss this once again with Gastroenterology by doing an upper and lower endoscopy. Family really wants it done. Cornell Nevarez DO
--- NOTE | 2017-10-10 11:48 | CP.PCM.PN ---
<Shantell Bruce - Last Filed: 10/10/17 11:48> Subjective - Date & Time of Evaluation Date of Evaluation: 10/10/17 Time of Evaluation: 10:45 - Subjective Subjective: Gi progress note for Dr Kumar's service Patient with no acute overnight events. As per nurse, patient had bowel movement yesterday, normal color, no blood. This AM no bowl movement. Patient c/ p epigastric pain. Denies nausea, vomiting. No fever. Objective - Vital Signs/Intake and Output Vital Signs (last 24 hours): Temp Pulse Resp BP Pulse Ox 98.6 F 98 H 20 162/73 H 93 L 10/10/17 08:00 10/10/17 09:43 10/10/17 08:00 10/10/17 09:43 10/10/17 08:00 Intake and Output: 10/10/17 10/10/17 06:59 18:59 Intake Total 120 Balance 120 - Medications Medications: Current Medications Amlodipine Besylate (Norvasc) 10 mg PO DAILY [facility] Last Admin: 10/10/17 09:43 Dose: 10 mg Atorvastatin Calcium (Lipitor) 80 mg PO DAILY [facility] Last Admin: 10/10/17 09:42 Dose: 80 mg Clonidine HCl (Catapres) 0.1 mg PO BID [facility] Last Admin: 10/10/17 09:41 Dose: 0.1 mg Clopidogrel Bisulfate (Plavix) 75 mg PO DAILY [facility] Cyproheptadine HCl (Periactin) 4 mg PO DAILY [facility] Last Admin: 10/10/17 09:43 Dose: 4 mg Diphenhydramine HCl (Benadryl) 25 mg IVP Q6H PRN PRN Reason: Anaphylaxis Last Admin: 10/10/17 00:53 Dose: 25 mg Home Med (Home Med) 1 unit OU DAILY [facility] Last Admin: 10/10/17 09:58 Dose: Not Given Sodium Chloride (Sodium Chloride 0.45%) 1,000 mls @ 80 mls/hr IV .[id number] [facility] Last Admin: 10/09/17 22:04 Dose: Not Given Aztreonam (Azactam 1 Gm) 100 mls @ 100 mls/hr IVPB Q8 [facility] PRN Reason: Protocol Stop: 10/16/17 06:01 Last Admin: 02/09/18 06:26 Dose: 100 mls/hr Metronidazole (Flagyl) 500 mg in 100 mls @ 100 mls/hr IVPB Q8 [facility] PRN Reason: Protocol Last Admin: 10/10/17 06:25 Dose: 100 mls/hr Insulin Human Regular (Humulin R High) 0 units SC ACHS [facility] PRN Reason: Protocol Last Admin: 10/10/17 08:18 Dose: Not Given Metoprolol Tartrate (Lopressor) 50 mg PO BID [facility] Last Admin: 10/10/17 09:43 Dose: 50 mg Mirtazapine (Remeron) 15 mg PO DAILY [facility] Last Admin: 10/10/17 09:41 Dose: 15 mg Non-Formulary Medication (Memantine Hcl [Namenda Xr]) 28 mg PO DAILY [facility] Ondansetron HCl (Zofran Inj) 4 mg IVP Q4 PRN PRN Reason: Nausea/Vomiting Last Admin: 10/09/17 21:03 Dose: 4 mg Pantoprazole Sodium (Protonix Ec Tab) 40 mg PO 0600 [facility] - Labs Labs: 10/10/17 06:30 10/10/17 06:30 PT 12.4 SECONDS (9.4-12.5) 10/07/17 22:50 INR 1.09 (0.93-1.08) H 10/07/17 22:50 APTT 20.8 Seconds (25.1-36.5) L 10/07/17 22:50 - Constitutional Appears: In Acute Distress - Head Exam Head Exam: ATRAUMATIC, NORMAL INSPECTION, NORMOCEPHALIC - Eye Exam Eye Exam: EOMI, Normal appearance, PERRL Pupil Exam: NORMAL ACCOMODATION - ENT Exam ENT Exam: Mucous Membranes Moist - Neck Exam Neck Exam: Normal Inspection - Respiratory Exam Respiratory Exam: Clear to Ausculation Bilateral, NORMAL BREATHING PATTERN. absent: Rales, Rhonchi, Wheezes, Respiratory Distress, Stridor - Cardiovascular Exam Cardiovascular Exam: REGULAR RHYTHM, RRR, +S1, +S2. absent: Gallop, Irregular Rhythm, Rubs, Murmur - GI/Abdominal Exam GI & Abdominal Exam: Soft, Tenderness (epigastric), Normal Bowel Sounds. absent : Distended, Firm, Guarding, Rigid, Hernia, Mass, Pulsatile Mass, Rebound - Extremities Exam Extremities Exam: Normal Inspection - Back Exam Back Exam: NORMAL INSPECTION - Neurological Exam Neurological Exam: Alert, Awake - Psychiatric Exam Psychiatric exam: Normal Affect, Normal Mood - Skin Skin Exam: Dry, Intact, Normal Color, Warm Assessment and Plan - Assessment and Plan (Free Text) Assessment: Patient is a 77 y/o with PMHx of Alzheimer dementia, DM, HLD, cva (on plavix), htn, diverticulitis who was brought in by her son due to abdominal pain and worsening of dementia. Patient was noted to be spitting dark particles/ coffee ground like, thus Gi is consulted for possible upper gi bleeding. Patient had CT abdomen and pelvis revealing mod hiatal hernia, thickening in distal esophagus, hepatic lesion suggestive of hemangiomas, thickening of sigmoid and rectal colon, cholelithiasis. 1- Epigastric and right upper quadrant abdominal pain with emesis- Emesis resolved 2- Acute on chronic anemia, recent EGD WNL; colonoscopy revealed sessile polyp path pending < 1 cm in sigmoid 3- MICHELE 4- dementia 5- h/o cva on plavix for secondary prevention 6- SIRS Plan: - HGB dropped from 10.9-> 9.6-> 8.9 today - Will monitor over the weekend - If epigastric pain persists and hgb continue to drop, will take patient for EGD on Friday - No need to repeat colonoscopy because patient recently had it almost 2 months ago. - Continue ppi and anti-emetic prn - On Azactam and flagyl for SIRs r/o sepsis as per ID - follow up with surgery for recommendations - Nephrology following for michele - On IV hydration and toradol prn for pain. - Diet as tolerated - Will hold plavix due to anticipation for egd on Friday Patient seen, examined and case discussed with Dr Kumar. <Lamont Kumar - Last Filed: 10/10/17 12:55> Objective - Vital Signs/Intake and Output Vital Signs (last 24 hours): Temp Pulse Resp BP Pulse Ox 98.6 F 98 H 20 162/73 H 93 L 10/10/17 08:00 10/10/17 09:43 10/10/17 08:00 10/10/17 09:43 10/10/17 08:00 Intake and Output: 10/10/17 10/10/17 06:59 18:59 Intake Total 120 Balance 120 - Medications Medications: Current Medications Amlodipine Besylate (Norvasc) 10 mg PO DAILY [facility] Last Admin: 10/10/17 09:43 Dose: 10 mg Atorvastatin Calcium (Lipitor) 80 mg PO DAILY [facility] Last Admin: 10/10/17 09:42 Dose: 80 mg Clonidine HCl (Catapres) 0.1 mg PO BID [facility] Last Admin: 10/10/17 09:41 Dose: 0.1 mg Clopidogrel Bisulfate (Plavix) 75 mg PO DAILY [facility] Last Admin: 10/10/17 12:29 Dose: Not Given Cyproheptadine HCl (Periactin) 4 mg PO DAILY [facility] Last Admin: 10/10/17 09:43 Dose: 4 mg Diphenhydramine HCl (Benadryl) 25 mg IVP Q6H PRN PRN Reason: Anaphylaxis Last Admin: 10/10/17 00:53 Dose: 25 mg Home Med (Home Med) 1 unit OU DAILY [facility] Last Admin: 10/10/17 09:58 Dose: Not Given Home Med (Home Med) 1 unit PO DAILY [facility] Sodium Chloride (Sodium Chloride 0.45%) 1,000 mls @ 80 mls/hr IV .[id number] [facility] Last Admin: 10/09/17 22:04 Dose: Not Given Aztreonam (Azactam 1 Gm) 100 mls @ 100 mls/hr IVPB Q8 [facility] PRN Reason: Protocol Stop: 10/16/17 06:01 Last Admin: 10/10/17 06:26 Dose: 100 mls/hr Metronidazole (Flagyl) 500 mg in 100 mls @ 100 mls/hr IVPB Q8 [facility] PRN Reason: Protocol Last Admin: 10/10/17 06:25 Dose: 100 mls/hr Insulin Human Regular (Humulin R High) 0 units SC ACHS [facility] PRN Reason: Protocol Last Admin: 10/10/17 12:28 Dose: Not Given Metoprolol Tartrate (Lopressor) 50 mg PO BID [facility] Last Admin: 10/10/17 09:43 Dose: 50 mg Mirtazapine (Remeron) 15 mg PO DAILY [facility] Last Admin: 10/10/17 09:41 Dose: 15 mg Ondansetron HCl (Zofran Inj) 4 mg IVP Q4 PRN PRN Reason: Nausea/Vomiting Last Admin: 10/09/17 21:03 Dose: 4 mg Pantoprazole Sodium (Protonix Ec Tab) 40 mg PO 0600 [facility] - Labs Labs: 10/10/17 06:30 10/10/17 06:30 PT 12.4 SECONDS (9.4-12.5) 10/07/17 22:50 INR 1.09 (0.93-1.08) H 10/07/17 22:50 APTT 20.8 Seconds (25.1-36.5) L 10/07/17 22:50 Attending/Attestation - Attestation I have personally seen and examined this patient.: Yes I have fully participated in the care of the patient.: Yes I have reviewed all pertinent clinical information, including history, physical exam and plan: Yes Notes (Text): 10/10/17 12:49 I have seen and examined patient with GI fellow and medical dir. No acute events overnight, she reports ongoing persistent epigastric abdominal pain and lack of appetite. She denies nausea, vomiting, fever/chills, diarrhea, or rectal bleeding. Review of vitals from today shows elevated BP, tachycardia. 12 point review of systems performed, negative aside from mentioned above. DM/HTN CVA on plavix Dementia Anemia Abdominal pain - Patient with recent EGD/colonoscopy at alternate facility without significant findings to account for patient presentation - Continue to monitor H/H, no overt bleeding noted - Continue with PPI therapy - Continue with antibiotic therapy as per ID - Anti-emetic therapy PRN - Diet as tolerated - If abdominal pain persists and progressive anemia noted, will plan for EGD evaluation given recent heavy NSAID use in order to rule out peptic ulcer disease. Plavix being held given potential procedure. If patient symptoms improve, then would suggest additional outpatient follow up. Will continue to monitor patient clinical course, case discussed with Dr. Nevarez.
[2017-10-10] MEDS ORDERED: Memantine Hcl [Namenda Xr] 28 MG PO SCH (11:55)
--- NOTE | 2017-10-10 14:02 | PN ---
DATE: 10/10/2017 SUBJECTIVE: I reviewed the abdominal CT scan without contrast on Ms. Marrufo. 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 No evidence of hemorrhage or inflammation is appreciated. The splenic artery aneurysm needs no further workup or treatment at this time. Her history is significant for dementia, diabetes, hypertension and dyslipidemia. With visceral aneurysms, she should not smoke and her blood pressure should be well controlled. Nabil Guajardo MD MTDD
[2017-10-10] MEDS: Sodium Chloride 0.45% 1,000 ML IV SCH (16:40)
--- NOTE | 2017-10-10 17:42 | CP.PCM.PN ---
Subjective - Date & Time of Evaluation Date of Evaluation: 10/10/17 Time of Evaluation: 11:50 - Subjective Subjective: No abdominal pain, no fevers, no diarrhea. Objective - Vital Signs/Intake and Output Vital Signs (last 24 hours): Temp Pulse Resp BP Pulse Ox 97.9 F 115 H 20 147/67 99 10/10/17 00:01 10/10/17 00:01 10/10/17 00:01 10/10/17 00:01 10/10/17 00:01 Intake and Output: 10/10/17 10/10/17 06:59 18:59 Intake Total 120 Balance 120 - Medications Medications: Current Medications Amlodipine Besylate (Norvasc) 10 mg PO DAILY [facility] Last Admin: 10/09/17 09:48 Dose: 10 mg Diphenhydramine HCl (Benadryl) 25 mg IVP Q6H PRN PRN Reason: Anaphylaxis Last Admin: 10/10/17 00:53 Dose: 25 mg Home Med (Home Med) 1 unit OU DAILY [facility] Pantoprazole Sodium (Protonix 40mg Ivpb) 40 mg in 100 mls @ 20 mls/hr IVPB .Q5H [facility] Last Admin: 10/10/17 05:21 Dose: 20 mls/hr Sodium Chloride (Sodium Chloride 0.45%) 1,000 mls @ 80 mls/hr IV .[id number] [facility] Last Admin: 10/09/17 22:04 Dose: Not Given Aztreonam (Azactam 1 Gm) 100 mls @ 100 mls/hr IVPB Q8 [facility] PRN Reason: Protocol Stop: 10/16/17 06:01 Last Admin: 10/10/17 06:26 Dose: 100 mls/hr Metronidazole (Flagyl) 500 mg in 100 mls @ 100 mls/hr IVPB Q8 [facility] PRN Reason: Protocol Last Admin: 10/10/17 06:25 Dose: 100 mls/hr Insulin Human Regular (Humulin R High) 0 units SC ACHS [facility] PRN Reason: Protocol Last Admin: 10/10/17 08:18 Dose: Not Given Ketorolac Tromethamine (Toradol) 15 mg IVP Q8H PRN PRN Reason: Pain, moderate (4-7) Last Admin: 10/10/17 05:00 Dose: 15 mg Ondansetron HCl (Zofran Inj) 4 mg IVP Q4 PRN PRN Reason: Nausea/Vomiting Last Admin: 10/09/17 21:03 Dose: 4 mg Potassium Chloride (K-Dur 20 Meq Er Tab) 20 meq PO ONCE ONE Stop: 10/10/17 08:48 - Labs Labs: 10/10/17 06:30 10/10/17 06:30 PT 12.4 SECONDS (9.4-12.5) 10/07/17 22:50 INR 1.09 (0.93-1.08) H 10/07/17 22:50 APTT 20.8 Seconds (25.1-36.5) L 10/07/17 22:50 - Constitutional Appears: Non-toxic - Head Exam Head Exam: NORMAL INSPECTION - Neck Exam Neck Exam: absent: Meningismus - Respiratory Exam Respiratory Exam: Decreased Breath Sounds - Cardiovascular Exam Cardiovascular Exam: +S1, +S2 - GI/Abdominal Exam GI & Abdominal Exam: Soft. absent: Tenderness Assessment and Plan - Assessment and Plan (Free Text) Plan: Assessment Systemic Inflammatory response syndrome, consider sepsis due to proctocolitis drop in Hgb, R/O GI bleed alzheimer's dementia DM dyslipidemia HTN history of diverticulitis S/P hemorrhoidectomy S/P hysterectomy S/P carpal tunnel surgery Plan continue Azactam and Flagyl day 2, blood cx are negative follow up further GI plans will continue to monitor clinically
[2017-10-10 18:46] LABS: ALBUMIN (PEP) 3.3 g/dL (3.8-4.8); ALPHA-1-GLOBULIN (PEP) 0.4 g/dL (0.2-0.3)
[2017-10-11] MEDS: Aztreonam 1 Gm in NS 100mL 100 ML IVPB SCH ×3 (05:13→21:32)
[2017-10-11] MEDS: metroNIDAZOLE IV 500 mg/100 ml 500 MG/100 ML BAG IVPB SCH ×3 (05:13→21:32)
[2017-10-11 07:04] LABS: HEMOGLOBIN 9.3 g/dL (12.0-16.0); MEAN CELL VOLUME 90.1 fl (80.0-105.0); MEAN CORPUSCULAR HEMOGLOBIN 30.8 pg (25.0-35.0); MEAN CORPUSCULAR HGB CONC 34.2 g/dl (31.0-37.0); MEAN PLATELET VOLUME 9.9 fl (7.0-11.0); RBC 3.02 10^6/uL (3.5-6.1); RED CELL DISTRIBUTION WIDTH 13.7 % (11.5-14.5); WHITE BLOOD COUNT 7.9 10^3/ul (4.5-11.0)
[2017-10-11] MEDS: Pantoprazole 40 mg EC Tab PO SCH (07:19)
[2017-10-11 07:22] LABS: ALB/GLOB RATIO 1.2 (1.1-1.8); ALBUMIN 3.3 g/dL (3.0-4.8); CALCIUM 9.6 mg/dL (8.4-10.5)
[2017-10-11] MEDS: Insulin Reg-HIGH-Coverage SC SCH ×4 (08:00→21:33)
[2017-10-11] MEDS: Memantine Hcl [Namenda Xr] 28 MG PO SCH (10:43)
[2017-10-11] MEDS: [UNRECOGNIZED DRUG - OTHER] OU SCH (10:43)
--- NOTE | 2017-10-11 14:32 | CP.PCM.PN ---
<Amn Billya - Last Filed: 10/11/17 14:29> Subjective - Date & Time of Evaluation Date of Evaluation: 10/11/17 Time of Evaluation: 09:15 - Subjective Subjective: GI Fellow PGY4 Progress Note Pt seen and evaulated at bedside, pt with no abdominal pain, nausea, or vomiting. No GI bleeding, tolerating diet. No acute events overnight. ROS: A 12pt ROS was negative except as above. Objective - Vital Signs/Intake and Output Vital Signs (last 24 hours): Temp Pulse Resp BP Pulse Ox 98.2 F 98 H 18 138/65 98 10/11/17 08:02 10/11/17 10:42 10/11/17 08:02 10/11/17 10:42 10/11/17 08:02 Intake and Output: 10/11/17 10/11/17 06:59 18:59 Intake Total 360 420 Balance 360 420 - Medications Medications: Current Medications Amlodipine Besylate (Norvasc) 10 mg PO DAILY [facility] Last Admin: 10/11/17 10:42 Dose: 10 mg Atorvastatin Calcium (Lipitor) 80 mg PO DAILY [facility] Last Admin: 10/11/17 10:42 Dose: 80 mg Clonidine HCl (Catapres) 0.1 mg PO BID [facility] Last Admin: 10/11/17 10:42 Dose: 0.1 mg Clopidogrel Bisulfate (Plavix) 75 mg PO DAILY [facility] Last Admin: 10/10/17 12:29 Dose: Not Given Cyproheptadine HCl (Periactin) 4 mg PO DAILY [facility] Last Admin: 10/11/17 10:42 Dose: 4 mg Diphenhydramine HCl (Benadryl) 25 mg IVP Q6H PRN PRN Reason: Anaphylaxis Last Admin: 10/10/17 21:02 Dose: 25 mg Home Med (Home Med) 1 unit OU DAILY [facility] Last Admin: 10/11/17 10:43 Dose: Not Given Home Med (Home Med) 1 unit PO DAILY [facility] Last Admin: 10/11/17 10:43 Dose: 1 unit Sodium Chloride (Sodium Chloride 0.45%) 1,000 mls @ 80 mls/hr IV .[id number] [facility] Last Admin: 10/10/17 16:40 Dose: 80 mls/hr Aztreonam (Azactam 1 Gm) 100 mls @ 100 mls/hr IVPB Q8 [facility] PRN Reason: Protocol Stop: 10/16/17 06:01 Last Admin: 10/11/17 13:18 Dose: 100 mls/hr Metronidazole (Flagyl) 500 mg in 100 mls @ 100 mls/hr IVPB Q8 [facility] PRN Reason: Protocol Last Admin: 10/11/17 13:18 Dose: 100 mls/hr Potassium Chloride (Potassium Chloride 10 Meq/100 Ml) 10 meq in 100 mls @ 50 mls/hr IVPB ONCE ONE Stop: 10/11/17 15:15 Insulin Human Regular (Humulin R High) 0 units SC ACHS [facility] PRN Reason: Protocol Last Admin: 10/11/17 12:18 Dose: Not Given Metoprolol Tartrate (Lopressor) 50 mg PO BID [facility] Last Admin: 10/11/17 10:42 Dose: 50 mg Mirtazapine (Remeron) 15 mg PO DAILY [facility] Last Admin: 10/11/17 10:42 Dose: 15 mg Ondansetron HCl (Zofran Inj) 4 mg IVP Q4 PRN PRN Reason: Nausea/Vomiting Last Admin: 10/09/17 21:03 Dose: 4 mg Pantoprazole Sodium (Protonix Ec Tab) 40 mg PO 0600 [facility] Last Admin: 10/11/17 07:19 Dose: Not Given - Labs Labs: 10/11/17 06:30 10/11/17 06:30 PT 12.4 SECONDS (9.4-12.5) 10/07/17 22:50 INR 1.09 (0.93-1.08) H 10/07/17 22:50 APTT 20.8 Seconds (25.1-36.5) L 10/07/17 22:50 - Constitutional Appears: Non-toxic, No Acute Distress - Head Exam Head Exam: ATRAUMATIC, NORMAL INSPECTION, NORMOCEPHALIC - Eye Exam Eye Exam: EOMI, Normal appearance, PERRL - ENT Exam ENT Exam: Mucous Membranes Moist - Respiratory Exam Respiratory Exam: Clear to Ausculation Bilateral - Cardiovascular Exam Cardiovascular Exam: REGULAR RHYTHM - GI/Abdominal Exam GI & Abdominal Exam: Normal Bowel Sounds - Extremities Exam Extremities Exam: Full ROM, Normal Inspection - Neurological Exam Neurological Exam: Alert, Awake, Oriented x3 - Psychiatric Exam Psychiatric exam: Normal Affect, Normal Mood - Skin Skin Exam: Dry, Intact, Normal Color, Warm Assessment and Plan - Assessment and Plan (Free Text) Assessment: Patient is a 77 y/o with PMHx of Alzheimer dementia, DM, HLD, cva (on plavix), htn, diverticulitis who was brought in by her son due to abdominal pain and worsening of dementia. Patient was noted to be spitting dark particles/ coffee ground like, thus GI is consulted for possible upper gi bleeding. Patient had CT abdomen and pelvis revealing mod hiatal hernia, thickening in distal esophagus, hepatic lesion suggestive of hemangiomas, thickening of sigmoid and rectal colon, cholelithiasis. 1- Epigastric and right upper quadrant abdominal pain with emesis-resolved 2- Acute on chronic anemia, recent EGD WNL; colonoscopy revealed sessile polyp path pending < 1 cm in sigmoid 3- h/o cva on plavix for secondary prevention Plan: -Continue supportive care - HGB stable 9.3 today, no active GI bleeding - Continue ppi and anti-emetic prn - Continue abx per primary team - Diet as tolerated - No need to repeat colonoscopy because patient recently had it almost 2 months ago - Will hold plavix for EGD on Friday <Erika Cabrera MD - Last Filed: 10/11/17 17:41> Objective - Vital Signs/Intake and Output Vital Signs (last 24 hours): Temp Pulse Resp BP Pulse Ox 98.6 F 82 18 120/57 L 96 10/11/17 16:00 10/11/17 17:23 10/11/17 16:00 10/11/17 17:23 10/11/17 16:00 Intake and Output: 10/11/17 10/11/17 06:59 18:59 Intake Total 360 420 Balance 360 420 - Medications Medications: Current Medications Amlodipine Besylate (Norvasc) 10 mg PO DAILY [facility] Last Admin: 10/11/17 10:42 Dose: 10 mg Atorvastatin Calcium (Lipitor) 80 mg PO DAILY [facility] Last Admin: 10/11/17 10:42 Dose: 80 mg Clonidine HCl (Catapres) 0.1 mg PO BID [facility] Last Admin: 10/11/17 17:23 Dose: Not Given Clopidogrel Bisulfate (Plavix) 75 mg PO DAILY [facility] Last Admin: 10/10/17 12:29 Dose: Not Given Cyproheptadine HCl (Periactin) 4 mg PO DAILY [facility] Last Admin: 10/11/17 10:42 Dose: 4 mg Diphenhydramine HCl (Benadryl) 25 mg IVP Q6H PRN PRN Reason: Anaphylaxis Last Admin: 10/10/17 21:02 Dose: 25 mg Home Med (Home Med) 1 unit OU DAILY [facility] Last Admin: 10/11/17 10:43 Dose: Not Given Home Med (Home Med) 1 unit PO DAILY [facility] Last Admin: 10/11/17 10:43 Dose: 1 unit Sodium Chloride (Sodium Chloride 0.45%) 1,000 mls @ 80 mls/hr IV .[id number] [facility] Last Admin: 10/10/17 16:40 Dose: 80 mls/hr Aztreonam (Azactam 1 Gm) 100 mls @ 100 mls/hr IVPB Q8 [facility] PRN Reason: Protocol Stop: 10/16/17 06:01 Last Admin: 10/11/17 13:18 Dose: 100 mls/hr Metronidazole (Flagyl) 500 mg in 100 mls @ 100 mls/hr IVPB Q8 [facility] PRN Reason: Protocol Last Admin: 10/11/17 13:18 Dose: 100 mls/hr Insulin Human Regular (Humulin R High) 0 units SC ACHS [facility] PRN Reason: Protocol Last Admin: 10/11/17 17:23 Dose: Not Given Metoprolol Tartrate (Lopressor) 50 mg PO BID [facility] Last Admin: 10/11/17 17:23 Dose: Not Given Mirtazapine (Remeron) 15 mg PO DAILY [facility] Last Admin: 10/11/17 10:42 Dose: 15 mg Ondansetron HCl (Zofran Inj) 4 mg IVP Q4 PRN PRN Reason: Nausea/Vomiting Last Admin: 10/09/17 21:03 Dose: 4 mg Pantoprazole Sodium (Protonix Ec Tab) 40 mg PO 0600 [facility] Last Admin: 10/11/17 07:19 Dose: Not Given - Labs Labs: 10/11/17 06:30 10/11/17 06:30 PT 12.4 SECONDS (9.4-12.5) 10/07/17 22:50 INR 1.09 (0.93-1.08) H 10/07/17 22:50 APTT 20.8 Seconds (25.1-36.5) L 10/07/17 22:50 Attending/Attestation - Attestation I have personally seen and examined this patient.: Yes I have fully participated in the care of the patient.: Yes I have reviewed all pertinent clinical information, including history, physical exam and plan: Yes Notes (Text): 10/11/17 17:40 I have seen and examined patient with GI fellow. 77 yr old F with DM, HTN, CVA on plavix, dementia, anemia admitetd with abdominal pain. No acute events overnight. She denies nausea, vomiting, fever/chills, diarrhea, or rectal bleeding. - H/H stable, no overt bleeding noted - Continue with PPI therapy - Continue with antibiotic therapy as per ID - Anti-emetic therapy PRN - Diet as tolerated - NPO past midnight for EGD on friday
--- NOTE | 2017-10-11 15:09 | CP.PCM.PN ---
Subjective - Date & Time of Evaluation Date of Evaluation: 10/11/17 Time of Evaluation: 15:07 - Subjective Subjective: renal follow up note please call us at [phone] if any qs s: no events overnight denies any complains vitals reviewed gen sitting in bed heent normal neck supple no resp distress lungs clear s1s2 present abd soft no edema neuro follows commands psych nml affect no rash plan : ARF / GIB / Anemia / Hypertension/ Hypokalemia/hypercalcemia Plan: MICHELE - continue gentle hydration cr is improving ~ 1 gram of protein hypercalcemia now resolving anemia: stable transfuse prn f/u gi workup Objective - Vital Signs/Intake and Output Vital Signs (last 24 hours): Temp Pulse Resp BP Pulse Ox 98.2 F 98 H 18 138/65 98 10/11/17 08:02 10/11/17 10:42 10/11/17 08:02 10/11/17 10:42 10/11/17 08:02 Intake and Output: 10/11/17 10/11/17 06:59 18:59 Intake Total 360 420 Balance 360 420 - Medications Medications: Current Medications Amlodipine Besylate (Norvasc) 10 mg PO DAILY [facility] Last Admin: 10/11/17 10:42 Dose: 10 mg Atorvastatin Calcium (Lipitor) 80 mg PO DAILY [facility] Last Admin: 10/11/17 10:42 Dose: 80 mg Clonidine HCl (Catapres) 0.1 mg PO BID [facility] Last Admin: 10/11/17 10:42 Dose: 0.1 mg Clopidogrel Bisulfate (Plavix) 75 mg PO DAILY [facility] Last Admin: 10/10/17 12:29 Dose: Not Given Cyproheptadine HCl (Periactin) 4 mg PO DAILY [facility] Last Admin: 10/11/17 10:42 Dose: 4 mg Diphenhydramine HCl (Benadryl) 25 mg IVP Q6H PRN PRN Reason: Anaphylaxis Last Admin: 10/10/17 21:02 Dose: 25 mg Home Med (Home Med) 1 unit OU DAILY [facility] Last Admin: 10/11/17 10:43 Dose: Not Given Home Med (Home Med) 1 unit PO DAILY [facility] Last Admin: 10/11/17 10:43 Dose: 1 unit Sodium Chloride (Sodium Chloride 0.45%) 1,000 mls @ 80 mls/hr IV .[id number] [facility] Last Admin: 10/10/17 16:40 Dose: 80 mls/hr Aztreonam (Azactam 1 Gm) 100 mls @ 100 mls/hr IVPB Q8 [facility] PRN Reason: Protocol Stop: 10/16/17 06:01 Last Admin: 10/11/17 13:18 Dose: 100 mls/hr Metronidazole (Flagyl) 500 mg in 100 mls @ 100 mls/hr IVPB Q8 [facility] PRN Reason: Protocol Last Admin: 10/11/17 13:18 Dose: 100 mls/hr Potassium Chloride (Potassium Chloride 10 Meq/100 Ml) 10 meq in 100 mls @ 50 mls/hr IVPB ONCE ONE Stop: 10/11/17 15:15 Insulin Human Regular (Humulin R High) 0 units SC ACHS [facility] PRN Reason: Protocol Last Admin: 10/11/17 12:18 Dose: Not Given Metoprolol Tartrate (Lopressor) 50 mg PO BID [facility] Last Admin: 10/11/17 10:42 Dose: 50 mg Mirtazapine (Remeron) 15 mg PO DAILY [facility] Last Admin: 10/11/17 10:42 Dose: 15 mg Ondansetron HCl (Zofran Inj) 4 mg IVP Q4 PRN PRN Reason: Nausea/Vomiting Last Admin: 10/09/17 21:03 Dose: 4 mg Pantoprazole Sodium (Protonix Ec Tab) 40 mg PO 0600 [facility] Last Admin: 10/11/17 07:19 Dose: Not Given - Labs Labs: 10/11/17 06:30 10/11/17 06:30 PT 12.4 SECONDS (9.4-12.5) 10/07/17 22:50 INR 1.09 (0.93-1.08) H 10/07/17 22:50 APTT 20.8 Seconds (25.1-36.5) L 10/07/17 22:50
--- NOTE | 2017-10-11 15:39 | PN ---
DATE: SUBJECTIVE: I see her sitting out of bed to chair. She is trying to eat some lunch. She is not doing a good job. Very little appetite. I had switch her from the Megace which she has been on for over 4 months to Periactin. The Megace was not really doing much to help her appetite and I think there are more side effects from it with the steroid part of it. She is on Azactam, Benadryl, Catapres, Flagyl, insulin, Lipitor, Lopressor, Norvasc, Periactin, Plavix is on hold, Protonix, Remeron, IV fluids, Zofran. She is out of bed to chair, comfortable, talking a little gibberish in Beninese with a staffing mgr with me. PHYSICAL EXAMINATION: VITAL SIGNS: She has 98.2 temp, 98 pulse, 138/65 blood pressure, 18 respiratory rate, 90% O2 sat on room air. HEENT: Head is atraumatic, normocephalic. Throat is moist. NECK: Supple. HEART: Regular rate. LUNGS: Decreased breath sounds bilaterally. ABDOMEN: Soft, obese, nontender. EXTREMITIES: No edema. LABORATORY DATA: She has a 7.9 white count, 9.3 hemoglobin, 27.2 hematocrit with 234 platelets. She has a 140 sodium, potassium 3.5. We did give her some potassium today. She has a 14 BUN, 1.1 creatinine, 58 GFR, blood sugar was 129, calcium is 9.6, total bili is 0.5, AST is 26, ALT is 26, alk phos 65, total protein is 5.9. ASSESSMENT AND PLAN: She is being seen by multiple doctors, Infectious Disease, Gastroenterology, interventional radiologist, Renal, Surgery, Cardiology. The plan is to do a colonoscopy, endoscopy on Friday. Also with drop in the hemoglobin. Hopefully, she will do very well. We will check her labs tomorrow. I discussed this yesterday with the family at length. Tried to help them with everything, all the needs and answered all the questions. Cornell Nevarez DO
[2017-10-11] MEDS: DiphenhydrAMINE 50 mg/ml Inj IVP PRN (21:32)
[2017-10-12] MEDS: Sodium Chloride 0.45% 1,000 ML IV SCH ×2 (00:10→05:42)
--- NOTE | 2017-10-12 01:16 | PN ---
DATE: 10/11/2017 SUBJECTIVE: The patient is in bed, no acute distress. PHYSICAL EXAMINATION: VITAL SIGNS: Temperature is 98, blood pressure is 120/50, respiratory rate of 18. HEENT; Unremarkable. NECK: Supple. LUNGS: Have decreased breath sounds. HEART: Normal S1, S2. ABDOMEN: Soft. LABORATORY DATA: Reveals a white count of 7.9, hemoglobin of 9, platelets of 234. BUN of 14, creatinine of 1.1. Microbiology reveals the blood cultures are negative. ASSESSMENT AND PLAN: This is a 77-year-old female with systemic inflammatory response syndrome and sepsis, proctocolitis, and drop in hemoglobin, Alzheimer dementia, diabetes, dyslipidemia, hypertension, day #3 of Flagyl and Azactam. The patient was seen early this morning in room 562, bed 1. Review of the orders reveals that the Azactam and Flagyl are both active. We will follow with you. Con Herrera MD
[2017-10-12] MEDS: metroNIDAZOLE IV 500 mg/100 ml 500 MG/100 ML BAG IVPB SCH ×3 (05:40→21:37)
[2017-10-12] MEDS: Aztreonam 1 Gm in NS 100mL 100 ML IVPB SCH ×3 (05:40→21:37)
[2017-10-12] MEDS: Pantoprazole 40 mg EC Tab PO SCH (05:41)
--- NOTE | 2017-10-12 06:19 | CP.PCM.PN ---
<Danae Cervantes - Last Filed: 10/12/17 08:50> Subjective - Date & Time of Evaluation Date of Evaluation: 10/12/17 Time of Evaluation: 08:15 - Subjective Subjective: GI Fellow PGY4 Progress Note Pt seen and evaluated at bedside, pt with no abdominal pain, nausea, or vomiting. No GI bleeding. Poor appetite per nursing. Overnight pt became confused, sundowning. ROS: A 12pt ROS was negative except as above. Objective - Vital Signs/Intake and Output Vital Signs (last 24 hours): Temp Pulse Resp BP Pulse Ox 98.6 F 82 18 120/57 L 96 10/11/17 16:00 10/11/17 17:23 10/11/17 16:00 10/11/17 17:23 10/11/17 16:00 Intake and Output: 10/11/17 10/12/17 18:59 06:59 Intake Total 420 300 Balance 420 300 - Medications Medications: Current Medications Amlodipine Besylate (Norvasc) 10 mg PO DAILY [facility] Last Admin: 10/11/17 10:42 Dose: 10 mg Atorvastatin Calcium (Lipitor) 80 mg PO DAILY [facility] Last Admin: 10/11/17 10:42 Dose: 80 mg Clonidine HCl (Catapres) 0.1 mg PO BID [facility] Last Admin: 10/11/17 17:23 Dose: Not Given Clopidogrel Bisulfate (Plavix) 75 mg PO DAILY [facility] Last Admin: 10/10/17 12:29 Dose: Not Given Cyproheptadine HCl (Periactin) 4 mg PO DAILY [facility] Last Admin: 10/11/17 10:42 Dose: 4 mg Diphenhydramine HCl (Benadryl) 25 mg IVP Q6H PRN PRN Reason: Anaphylaxis Last Admin: 10/11/17 21:32 Dose: 25 mg Home Med (Home Med) 1 unit OU DAILY [facility] Last Admin: 10/11/17 10:43 Dose: Not Given Home Med (Home Med) 1 unit PO DAILY [facility] Last Admin: 10/11/17 10:43 Dose: 1 unit Sodium Chloride (Sodium Chloride 0.45%) 1,000 mls @ 80 mls/hr IV .[id number] [facility] Last Admin: 10/12/17 05:42 Dose: 80 mls/hr Aztreonam (Azactam 1 Gm) 100 mls @ 100 mls/hr IVPB Q8 [facility] PRN Reason: Protocol Stop: 10/16/17 06:01 Last Admin: 10/12/17 05:40 Dose: 100 mls/hr Metronidazole (Flagyl) 500 mg in 100 mls @ 100 mls/hr IVPB Q8 [facility] PRN Reason: Protocol Last Admin: 10/12/17 05:40 Dose: 100 mls/hr Insulin Human Regular (Humulin R High) 0 units SC ACHS [facility] PRN Reason: Protocol Last Admin: 10/11/17 21:33 Dose: Not Given Metoprolol Tartrate (Lopressor) 50 mg PO BID [facility] Last Admin: 10/11/17 17:23 Dose: Not Given Mirtazapine (Remeron) 15 mg PO DAILY [facility] Last Admin: 10/11/17 10:42 Dose: 15 mg Ondansetron HCl (Zofran Inj) 4 mg IVP Q4 PRN PRN Reason: Nausea/Vomiting Last Admin: 10/09/17 21:03 Dose: 4 mg Pantoprazole Sodium (Protonix Ec Tab) 40 mg PO 0600 [facility] Last Admin: 10/12/17 05:41 Dose: 40 mg - Labs Labs: 10/11/17 06:30 10/11/17 06:30 PT 12.4 SECONDS (9.4-12.5) 10/07/17 22:50 INR 1.09 (0.93-1.08) H 10/07/17 22:50 APTT 20.8 Seconds (25.1-36.5) L 10/07/17 22:50 - Constitutional Appears: Non-toxic, No Acute Distress - Head Exam Head Exam: ATRAUMATIC, NORMAL INSPECTION, NORMOCEPHALIC - Eye Exam Eye Exam: EOMI, Normal appearance, PERRL - ENT Exam ENT Exam: Mucous Membranes Moist - Neck Exam Neck Exam: Full ROM - Respiratory Exam Respiratory Exam: Clear to Ausculation Bilateral, NORMAL BREATHING PATTERN - Cardiovascular Exam Cardiovascular Exam: REGULAR RHYTHM, RRR - GI/Abdominal Exam GI & Abdominal Exam: Soft, Normal Bowel Sounds. absent: Tenderness - Extremities Exam Extremities Exam: Normal Inspection - Neurological Exam Neurological Exam: Alert, Awake - Psychiatric Exam Psychiatric exam: Normal Affect, Normal Mood - Skin Skin Exam: Dry, Intact, Normal Color, Warm Assessment and Plan - Assessment and Plan (Free Text) Assessment: Patient is a 77 y/o with PMHx of Alzheimer dementia, DM, HLD, cva (on plavix), htn, diverticulitis who was brought in by her son due to abdominal pain and worsening of dementia. Patient was noted to be spitting dark particles/ coffee ground like, thus GI is consulted for possible upper gi bleeding. Patient had CT abdomen and pelvis revealing mod hiatal hernia, thickening in distal esophagus, hepatic lesion suggestive of hemangiomas, thickening of sigmoid and rectal colon, cholelithiasis. 1- Epigastric and right upper quadrant abdominal pain with emesis-resolved 2- Acute on chronic anemia, recent EGD WNL; colonoscopy revealed sessile polyp path pending < 1 cm in sigmoid 3- h/o cva on plavix for secondary prevention Plan: -Continue supportive care - H/H stable, no active GI bleeding, continue to monitor Hgb - Continue ppi and anti-emetic prn - Continue abx per primary team - Diet as tolerated - NPO after midnight - EGD tomorrow - Consent signed and in chart, called pt's daughter over the phone - Will continue to follow closely <Erika Cabrera MD - Last Filed: 10/12/17 16:38> Objective - Vital Signs/Intake and Output Vital Signs (last 24 hours): Temp Pulse Resp BP Pulse Ox 98 F 100 H 22 178/78 H 95 10/12/17 07:44 18 09:52 10/12/17 07:44 10/12/17 09:52 10/12/17 07:44 Intake and Output: 10/12/17 10/12/17 06:59 18:59 Intake Total 300 120 Balance 300 120 - Medications Medications: Current Medications Amlodipine Besylate (Norvasc) 10 mg PO DAILY [facility] Last Admin: 10/12/17 09:52 Dose: 10 mg Atorvastatin Calcium (Lipitor) 80 mg PO DAILY [facility] Last Admin: 10/12/17 09:53 Dose: 80 mg Clonidine HCl (Catapres) 0.1 mg PO BID [facility] Last Admin: 10/12/17 09:52 Dose: 0.1 mg Clopidogrel Bisulfate (Plavix) 75 mg PO DAILY [facility] Last Admin: 10/10/17 12:29 Dose: Not Given Cyproheptadine HCl (Periactin) 4 mg PO DAILY [facility] Last Admin: 10/12/17 09:52 Dose: 4 mg Diphenhydramine HCl (Benadryl) 25 mg IVP Q6H PRN PRN Reason: Anaphylaxis Last Admin: 10/11/17 21:32 Dose: 25 mg Home Med (Home Med) 1 unit PO DAILY [facility] Last Admin: 10/12/17 09:53 Dose: 1 unit Home Med (Home Med) 1 unit OU DAILY [facility] Sodium Chloride (Sodium Chloride 0.45%) 1,000 mls @ 80 mls/hr IV .[id number] [facility] Last Admin: 10/12/17 05:42 Dose: 80 mls/hr Aztreonam (Azactam 1 Gm) 100 mls @ 100 mls/hr IVPB Q8 [facility] PRN Reason: Protocol Stop: 10/16/17 06:01 Last Admin: 10/12/17 13:27 Dose: 100 mls/hr Metronidazole (Flagyl) 500 mg in 100 mls @ 100 mls/hr IVPB Q8 [facility] PRN Reason: Protocol Last Admin: 10/12/17 14:38 Dose: 100 mls/hr Potassium Chloride (Potassium Chloride 20 Meq/100 Ml) 20 meq in 100 mls @ 50 mls/hr IVPB ONCE ONE Stop: 10/12/17 17:16 Insulin Human Regular (Humulin R High) 0 units SC ACHS [facility] PRN Reason: Protocol Last Admin: 10/12/17 12:14 Dose: Not Given Metoprolol Tartrate (Lopressor) 50 mg PO BID [facility] Last Admin: 10/12/17 09:52 Dose: 50 mg Mirtazapine (Remeron) 15 mg PO DAILY [facility] Last Admin: 10/12/17 09:52 Dose: 15 mg Ondansetron HCl (Zofran Inj) 4 mg IVP Q4 PRN PRN Reason: Nausea/Vomiting Last Admin: 10/12/17 14:42 Dose: 4 mg Pantoprazole Sodium (Protonix Ec Tab) 40 mg PO 0600 [facility] Last Admin: 10/12/17 05:41 Dose: 40 mg - Labs Labs: 10/12/17 07:00 10/12/17 07:00 PT 12.4 SECONDS (9.4-12.5) 10/07/17 22:50 INR 1.09 (0.93-1.08) H 10/07/17 22:50 APTT 20.8 Seconds (25.1-36.5) L 10/07/17 22:50 Attending/Attestation - Attestation I have personally seen and examined this patient.: Yes I have fully participated in the care of the patient.: Yes I have reviewed all pertinent clinical information, including history, physical exam and plan: Yes Notes (Text): 10/12/17 16:38 I have seen and examined patient with GI fellow. 77 yr old F with DM, HTN, CVA on plavix, dementia, anemia admitetd with abdominal pain. No acute events overnight. She denies nausea, vomiting, fever/chills, diarrhea, or rectal bleeding. - H/H stable, no overt bleeding noted - Continue with PPI therapy - Continue with antibiotic therapy as per ID - Anti-emetic therapy PRN - Diet as tolerated - NPO past midnight for EGD on friday
[2017-10-12 07:51] LABS: HEMOGLOBIN 9.7 g/dL (12.0-16.0); MEAN CORPUSCULAR HEMOGLOBIN 30.2 pg (25.0-35.0); MEAN CORPUSCULAR HGB CONC 33.6 g/dl (31.0-37.0); MEAN PLATELET VOLUME 10.2 fl (7.0-11.0); RBC 3.21 10^6/uL (3.5-6.1); RED CELL DISTRIBUTION WIDTH 13.8 % (11.5-14.5); WHITE BLOOD COUNT 7.2 10^3/ul (4.5-11.0)
[2017-10-12] MEDS: Insulin Reg-HIGH-Coverage SC SCH ×4 (07:51→21:37)
[2017-10-12] MEDS: Memantine Hcl [Namenda Xr] 28 MG PO SCH (09:53)
[2017-10-12] MEDS: [UNRECOGNIZED DRUG - OTHER] OU SCH (09:53)
[2017-10-12 10:31] LABS: ALB/GLOB RATIO 1.2 (1.1-1.8); ALBUMIN 3.5 g/dL (3.0-4.8); ALT/SGPT 18 U/L (7-56); AST/SGOT 35 U/L (14-36); BLOOD UREA NITROGEN 15 mg/dL (7-21); CALCIUM 9.2 mg/dL (8.4-10.5); GFR AFRICAN-AMERICAN > 60; GFR NON-AFRICAN AMERICAN 53
[2017-10-12] MEDS ORDERED: Potassium Chloride 40 mEq/30 ml LIQ UD PO ONE (12:43)
--- NOTE | 2017-10-12 12:43 | CP.PCM.PN ---
Subjective - Date & Time of Evaluation Date of Evaluation: 10/12/17 Time of Evaluation: 12:42 - Subjective Subjective: renal follow up note please call us at [phone] if any qs s: no events overnight denies any complains vitals reviewed gen sitting in bed heent normal neck supple no resp distress lungs clear s1s2 present abd soft no edema neuro follows commands psych nml affect no rash plan : ARF / GIB / Anemia / Hypertension/ Hypokalemia/hypercalcemia Plan: MICHELE - continue gentle hydration cr is essentially normal ~ 1 gram of protein hypercalcemia resolving will give 40 k dur today anemia: stable transfuse prn f/u gi workup Objective - Vital Signs/Intake and Output Vital Signs (last 24 hours): Temp Pulse Resp BP Pulse Ox 98 F 100 H 22 178/78 H 95 10/12/17 07:44 10/12/17 09:52 10/12/17 07:44 10/12/17 09:52 10/12/17 07:44 Intake and Output: 10/12/17 10/12/17 06:59 18:59 Intake Total 300 Balance 300 - Medications Medications: Current Medications Amlodipine Besylate (Norvasc) 10 mg PO DAILY [facility] Last Admin: 10/12/17 09:52 Dose: 10 mg Atorvastatin Calcium (Lipitor) 80 mg PO DAILY [facility] Last Admin: 10/12/17 09:53 Dose: 80 mg Clonidine HCl (Catapres) 0.1 mg PO BID [facility] Last Admin: 10/12/17 09:52 Dose: 0.1 mg Clopidogrel Bisulfate (Plavix) 75 mg PO DAILY [facility] Last Admin: 10/10/17 12:29 Dose: Not Given Cyproheptadine HCl (Periactin) 4 mg PO DAILY [facility] Last Admin: 10/12/17 09:52 Dose: 4 mg Diphenhydramine HCl (Benadryl) 25 mg IVP Q6H PRN PRN Reason: Anaphylaxis Last Admin: 10/11/17 21:32 Dose: 25 mg Home Med (Home Med) 1 unit PO DAILY [facility] Last Admin: 10/12/17 09:53 Dose: 1 unit Home Med (Home Med) 1 unit OU DAILY [facility] Sodium Chloride (Sodium Chloride 0.45%) 1,000 mls @ 80 mls/hr IV .[id number] [facility] Last Admin: 10/12/17 05:42 Dose: 80 mls/hr Aztreonam (Azactam 1 Gm) 100 mls @ 100 mls/hr IVPB Q8 [facility] PRN Reason: Protocol Stop: 10/16/17 06:01 Last Admin: 10/12/17 05:40 Dose: 100 mls/hr Metronidazole (Flagyl) 500 mg in 100 mls @ 100 mls/hr IVPB Q8 [facility] PRN Reason: Protocol Last Admin: 10/12/17 05:40 Dose: 100 mls/hr Insulin Human Regular (Humulin R High) 0 units SC ACHS [facility] PRN Reason: Protocol Last Admin: 10/12/17 12:14 Dose: Not Given Metoprolol Tartrate (Lopressor) 50 mg PO BID [facility] Last Admin: 10/12/17 09:52 Dose: 50 mg Mirtazapine (Remeron) 15 mg PO DAILY [facility] Last Admin: 10/12/17 09:52 Dose: 15 mg Ondansetron HCl (Zofran Inj) 4 mg IVP Q4 PRN PRN Reason: Nausea/Vomiting Last Admin: 10/09/17 21:03 Dose: 4 mg Pantoprazole Sodium (Protonix Ec Tab) 40 mg PO 0600 [facility] Last Admin: 10/12/17 05:41 Dose: 40 mg - Labs Labs: 10/12/17 07:00 10/12/17 07:00 PT 12.4 SECONDS (9.4-12.5) 10/07/17 22:50 INR 1.09 (0.93-1.08) H 10/07/17 22:50 APTT 20.8 Seconds (25.1-36.5) L 10/07/17 22:50
--- NOTE | 2017-10-12 14:39 | PN ---
DATE: SUBJECTIVE: I saw her sitting out of bed to chair. She is alert. She is talking Czech, I had a auto air conditioning apprentice with me. She still will not eat. She has not eaten in 2 to 3 days. She just will not need anything, does not want to eat. She is on Azactam, Benadryl, Catapres, Flagyl, insulin, Lipitor, Lopressor, Norvasc, Periactin,. She has been on Megace, it did not work. Plavix is on hold. Protonix, Remeron, sodium chloride, and Zofran. PHYSICAL EXAMINATION VITAL SIGNS: She has a 98 temperature, 100 pulse, 178/78 blood pressure, 22 respiratory rate, 95% O2 sat on room air. GENERAL: She is alert. She is talking. HEENT: Head is atraumatic, normocephalic. Throat is moist. NECK: Supple. HEART: Regular rate. LUNGS: Decreased breath sounds, but clear. ABDOMEN: Soft, nontender. EXTREMITIES: No edema. LABORATORY DATA: She has 7.2 white count, 9.7 hemoglobin, 28.9 hematocrit with 320,000 platelets. She has 140 sodium; potassium 3.5, which was replaced. SMA-20 is pending this morning. Last blood sugar was 152. AST is 26. ALT is 26, alkaline phosphatase is 55. Urine is a few. On reviewing her CAT scan of the abdomen and pelvis that was done on 10/08, she has hiatal hernia; distal esophageal thickening , maybe inflammatory. Recommending endoscopy. Right hepatic lobe mass contrast CT, gallstones, splenic artery aneurysm, thickening of the sigmoid colon, compression fractures and she had a total body nuclear scan, which showed no evidence of acute cholecystitis. Hopefully, we will get the endoscopies tomorrow and let us know what is going on in the stomach, duodenum and the colon. Check her labs tomorrow. Encouraged her to eat. To see her for abdominal pain, nausea, vomiting, acute kidney injury, diabetes, and renal insufficiency, I am looking forward to the results of the endoscopy tomorrow. Cornell Nevarez DO MTDD
[2017-10-12 17:17] LABS: BASO # 0.02 K/mm3 (0.0-2.0); BASO % 0.2 % (0.0-3.0); EOS % 0.2 % (1.5-5.0); GRAN # 8.33 (1.4-6.5); GRAN % 82.6 % (50.0-68.0); HEMOGLOBIN 9.7 g/dL (12.0-16.0); LYMPH # 1.3 (1.2-3.4); LYMPH % 12.7 % (22.0-35.0); MEAN CELL VOLUME 90.1 fl (80.0-105.0); MEAN CORPUSCULAR HGB CONC 33.3 g/dl (31.0-37.0); MEAN PLATELET VOLUME 9.5 fl (7.0-11.0); MONO # 0.4 (0.1-0.6); MONO % 4.3 % (1.0-6.0); RBC 3.23 10^6/uL (3.5-6.1); RED CELL DISTRIBUTION WIDTH 13.9 % (11.5-14.5); WHITE BLOOD COUNT 10.1 10^3/ul (4.5-11.0)
[2017-10-13] MEDS: DiphenhydrAMINE 50 mg/ml Inj IVP PRN (00:23)
--- NOTE | 2017-10-13 01:38 | PN ---
DATE: 10/12/2017 SUBJECTIVE: The patient is in bed, in no acute distress, was seen early this morning in 562, bed 1. PHYSICAL EXAMINATION: VITAL SIGNS: Temperature is 97, blood pressure is 130/60, respiratory rate 20, heart rate of 115. HEENT: Examination of HEENT is unremarkable. NECK: Supple. LUNGS: Have decreased breath sounds. HEART: Shows normal S1 and S2. ABDOMEN: Soft, nontender. LABORATORY DATA: Laboratory examination revealed the patient's white count to be 10, hemoglobin of 9 and platelets of 329. BUN of 16, creatinine of 1.0. Blood cultures are negative. ASSESSMENT AND PLAN: A 77-year-old female with systemic inflammatory response syndrome and sepsis, proctocolitis and drop in hemoglobin, Alzheimer's dementia, diabetes, dyslipidemia, hypertension. Day #4 of Flagyl and Azactam with negative blood cultures. Stool cultures are pending. Con Herrera MD
[2017-10-13 01:52] LABS: FREE KAPPA SERUM 23.8 mg/L (3.3-19.4)
[2017-10-13] MEDS: Sodium Chloride 0.45% 1,000 ML IV SCH (02:02)
[2017-10-13] MEDS: Pantoprazole 40 mg EC Tab PO SCH (05:33)
[2017-10-13] MEDS: Aztreonam 1 Gm in NS 100mL 100 ML IVPB SCH ×3 (05:33→21:50)
[2017-10-13] MEDS: metroNIDAZOLE IV 500 mg/100 ml 500 MG/100 ML BAG IVPB SCH ×3 (05:34→21:53)
[2017-10-13 07:14] LABS: BASO # 0.02 K/mm3 (0.0-2.0); BASO % 0.3 % (0.0-3.0); EOS # 0.2 (0.0-0.7); EOS % 2.9 % (1.5-5.0); GRAN # 4.5 (1.4-6.5); GRAN % 61.4 % (50.0-68.0); HEMOGLOBIN 9.2 g/dL (12.0-16.0); LYMPH # 2.1 (1.2-3.4); LYMPH % 28.4 % (22.0-35.0); MEAN CELL VOLUME 90.2 fl (80.0-105.0); MEAN CORPUSCULAR HEMOGLOBIN 30.2 pg (25.0-35.0); MEAN CORPUSCULAR HGB CONC 33.5 g/dl (31.0-37.0); MEAN PLATELET VOLUME 9.7 fl (7.0-11.0); MONO # 0.5 (0.1-0.6); RBC 3.05 10^6/uL (3.5-6.1); RED CELL DISTRIBUTION WIDTH 14.2 % (11.5-14.5); WHITE BLOOD COUNT 7.3 10^3/ul (4.5-11.0)
[2017-10-13 07:38] LABS: ALB/GLOB RATIO 1.3 (1.1-1.8); ALBUMIN 3.3 g/dL (3.0-4.8); ALT/SGPT 33 U/L (7-56); AST/SGOT 41 U/L (14-36); BLOOD UREA NITROGEN 13 mg/dL (7-21); CALCIUM 9.2 mg/dL (8.4-10.5); GFR AFRICAN-AMERICAN > 60; GFR NON-AFRICAN AMERICAN 53
[2017-10-13 07:40] LABS: INR 1.26 (0.93-1.08); PROTHROMBIN TIME 14.6 SECONDS (9.4-12.5)
[2017-10-13] MEDS ORDERED: Propofol 10 mg/ml Inj (20 ML) ONE (09:05)
[2017-10-13] MEDS ORDERED: Lidocaine 1% Inj (20ml) ONE (09:12)
[2017-10-13] MEDS: KETOTIFEN FUMARATE OU SCH (10:40)
[2017-10-13] MEDS: Insulin Reg-HIGH-Coverage SC SCH ×4 (10:40→22:35)
[2017-10-13] MEDS ORDERED: Morphine 2 mg/ml ISec IVP ONE ×2 (11:05→15:36)
--- NOTE | 2017-10-13 11:12 | CARD ---
APPROVED REPORT EKG Measurement Heart [id number] <Conclusion> Normal sinus rhythm Nonspecific T wave abnormality
[2017-10-13 11:26] LABS: BASO # 0.04 K/mm3 (0.0-2.0); BASO % 0.4 % (0.0-3.0); EOS # 0.2 (0.0-0.7); EOS % 2.4 % (1.5-5.0); GRAN # 6.36 (1.4-6.5); GRAN % 70.7 % (50.0-68.0); LYMPH % 21.8 % (22.0-35.0); MEAN CELL VOLUME 90.9 fl (80.0-105.0); MEAN CORPUSCULAR HEMOGLOBIN 30.4 pg (25.0-35.0); MEAN CORPUSCULAR HGB CONC 33.5 g/dl (31.0-37.0); MEAN PLATELET VOLUME 9.4 fl (7.0-11.0); MONO # 0.4 (0.1-0.6); MONO % 4.7 % (1.0-6.0); RBC 2.96 10^6/uL (3.5-6.1); RED CELL DISTRIBUTION WIDTH 14.2 % (11.5-14.5)
--- NOTE | 2017-10-13 11:30 | PCM.RRT ---
<Jensen Lepe S - Last Filed: 10/13/17 12:14> VACUUM CLOSING MACHINE OPERATOR Nurse Assessment - Situation Date: 10/13/17 Time VACUUM CLOSING MACHINE OPERATOR was called: 11:08 VACUUM CLOSING MACHINE OPERATOR Responder Arrival Time: 11:10 VACUUM CLOSING MACHINE OPERATOR Location:: [address] [place] [address] Room Number: [id number] VACUUM CLOSING MACHINE OPERATOR Reason for Call: Looks Sicker VACUUM CLOSING MACHINE OPERATOR Called By: RN - IV IV Inserted during VACUUM CLOSING MACHINE OPERATOR?: No - Respiratory Oxygen Delivery Method: Nasal Cannula @L/min Oxygen Flow Rate: 3 - Diagnostic Test Ordered EKG: (Previous EKG done at 1039) - Stat Labs Ordered VACUUM CLOSING MACHINE OPERATOR Stat Labs Ordered: CBC, TROPONIN CPR started during VACUUM CLOSING MACHINE OPERATOR?: No - Vital Signs Vital Sign: Rapid Response Vital Sign Blood Pressure 138/61 Pulse Rate 105 Respiratory Rate 20 Oxygen Saturation 98 - Finger Stick Blood Glucose Finger Stick Blood Glucose: 159 - Marilu Coma Scale Coma Scale Eye Opening: Spontaneous Coma Scale Motor: Obeys Commands Movement Coma Scale Verbal: Oriented - Time VACUUM CLOSING MACHINE OPERATOR Ended Time VACUUM CLOSING MACHINE OPERATOR Ended: 11:17 - Vital Signs at end of VACUUM CLOSING MACHINE OPERATOR Vital Signs at end of VACUUM CLOSING MACHINE OPERATOR: Rapid Response End Vital Sign Blood Pressure 142/62 Pulse Rate 102 Respiratory Rate 20 O2 Sat by Pulse Oximetry 98 - Recommendations Notifications: Attending Physician, Consultations I.Reason for VACUUM CLOSING MACHINE OPERATOR - A) Acute Change in Patient: (Select all that apply): Staff member or family is worried about patient - Neurological Status (Select all that apply): Alert, Responsive, Oriented, Verbal, Follows Commands - Respiratory Oxygen Delivery Method: Nasal Cannula @L/min Oxygen Flow Rate: 3 - Constitutional Appears: No Acute Distress, Chronically Ill - Head Head Exam: ATRAUMATIC, NORMOCEPHALIC - Eyes Eye Exam: EOMI, Normal appearance - Respiratory Exam Respiratory Exam: Clear to Ausculation Bilateral, NORMAL BREATHING PATTERN. absent: Rales, Rhonchi, Wheezes - Cardiovascular Exam Cardiovascular Exam: Tachycardia, +S1, +S2 - GI/Abdominal Exam GI & Abdominal Exam: Soft, Normal Bowel Sounds. absent: Distended, Guarding, Tenderness - Neurological Exam Neurological Exam: Alert, Awake - Extremities Exam Extremities Exam: absent: Tenderness Plan - Assessment of Findings&Treatment Plan VACUUM CLOSING MACHINE OPERATOR called for hematemesis s/p EGD by Dr. Kumar's group earlier today. EGD results showed esophagitis with evidence of bleeding, biopsy taken. Patient initially coughed up a little bit of blood per nursing staff before bringing more up and stating that she had right sided chest pain. At this point, VACUUM CLOSING MACHINE OPERATOR called. Per my conversation with the patient in Algerian, she denied chest pain and stated that she has right sided back pain radiating to the right axillary region that started today. Calls placed to primary and GI teams notifying them. Patient's is currently hemodynamically stable. EKG done, no changes seen from prior study. Post VACUUM CLOSING MACHINE OPERATOR CBC stable at 9.0 hemoglobin. Troponin negative. Patient was seen and examined with Dr. Aguirre. <Anthony Aguirre - Last Filed: 10/15/17 16:21> VACUUM CLOSING MACHINE OPERATOR Nurse Assessment - Vital Signs Vital Sign: Rapid Response Vital Sign Blood Pressure 138/61 Pulse Rate 105 Respiratory Rate 20 Oxygen Saturation 98 - Vital Signs at end of VACUUM CLOSING MACHINE OPERATOR Vital Signs at end of VACUUM CLOSING MACHINE OPERATOR: Rapid Response End Vital Sign Blood Pressure 142/62 Pulse Rate 102 Respiratory Rate 20 O2 Sat by Pulse Oximetry 98 Attending/Attestation - Attestation I have personally seen and examined this patient.: Yes I have fully participated in the care of the patient.: Yes I have reviewed all pertinent clinical information, including history, physical exam and plan: Yes Notes (Text): I have seen and examined the patient at bedside. Patient appears stable at this time. No more active bleeding at this time. PMD and Gatroenterologist were contacted and updated regarding patients situation. If patient continues to bleed or becomes hemodynamicaly unstable, then we will plan to upgrade the patient either to tele or ICU for close monitoring. Will start IV protonix at this time and make patient NPO. Need frequent CBC monitoring.
[2017-10-13 11:35] LABS: MAGNESIUM 1.4 mg/dL (1.7-2.2)
[2017-10-13 11:47] LABS: TROPONIN I 0.01 ng/mL
[2017-10-13] MEDS: Sucralfate 1 gm/10 ml Oral Susp UD PO SCH ×3 (11:48→21:33)
[2017-10-13] MEDS ORDERED: Magnesium Sulfate 1 gm in D5W 1 GM/100 ML BAG IVPB ONE (11:53)
--- NOTE | 2017-10-13 12:08 | PN ---
DATE: SUBJECTIVE: She is calm in bed. She slept fairly well. She is not hungry at all. No complaints. No chest pain or shortness of breath. No abdominal pain. Definitely not hungry. MEDICATIONS: She is on Azactam, Benadryl, Catapres, Flagyl, insulin, Lipitor, Lopressor, Norvasc, Periactin, Plavix is on hold, Protonix, Remeron, IV fluids and Zofran. PHYSICAL EXAMINATION VITAL SIGNS: She has a 98.6 temperature, 99 pulse, 143/67 blood pressure, 20 respiratory rate, 99% O2 sat on room air. HEENT: Head is atraumatic, normocephalic. HEART: Regular rate. LUNGS: Decreased breath sounds, but clear. ABDOMEN: Soft, morbidly obese, nontender. EXTREMITIES: No edema. LABORATORY DATA: She has a 7.3 white count, 9.2 hemoglobin, 27.5 hematocrit with 270,000 platelets. Sodium 142, potassium 3.4 and we did give her some potassium this morning, BUN 13, creatinine 1, GFR is 53, sugar is 130, calcium is 9.2, total bilirubin is 0.5, AST is 41, ALT is 33, alkaline phosphatase 53, total protein 5.9. She is being seen by Infectious Disease, Renal, GI. She has systemic inflammatory response syndrome, sepsis, proctocolitis, drop in hemoglobin, Alzheimer disease, diabetes, high cholesterol, hypertension. She is on Flagyl and Azactam. She is going to go for an endoscopy today with GI. Hopefully, that will show something for her anemia and may help her to increase her appetite. She is on Periactin. She was on Megace for a long period of time. Cornell Nevarez DO
[2017-10-13] MEDS: Memantine Hcl [Namenda Xr] 28 MG PO SCH (15:25)
--- NOTE | 2017-10-13 15:55 | RAD ---
HISTORY: Chest pain COMPARISON: No prior. FINDINGS: LUNGS: The lungs are well inflated. There is bilateral lower lobe atelectasis/scarring. PLEURA: No significant pleural effusion identified, no pneumothorax apparent. CARDIOVASCULAR: The heart is normal in size. Atherosclerotic aortic arch calcifications are present. OSSEOUS STRUCTURES: No significant abnormalities. VISUALIZED UPPER ABDOMEN: Normal. OTHER FINDINGS: None. IMPRESSION: No active pulmonary disease.
[2017-10-13] MEDS ORDERED: Pantoprazole 40 mg EC Tab PO SCH (16:00)
[2017-10-13] MEDS: Morphine 2 mg/ml ISec IM PRN ×2 (18:37→22:33)
--- NOTE | 2017-10-13 18:49 | CP.PCM.PN ---
Subjective - Date & Time of Evaluation Date of Evaluation: 10/13/17 Time of Evaluation: 08:20 - Subjective Subjective: Seen earlier today, for endoscopy, no fevers overnight. Objective - Vital Signs/Intake and Output Vital Signs (last 24 hours): Temp Pulse Resp BP Pulse Ox 98.1 F 100 H 18 123/71 99 10/13/17 17:20 10/13/17 17:11 10/13/17 17:11 10/13/17 15:00 10/13/17 17:11 Intake and Output: 10/13/17 10/13/17 06:59 18:59 Intake Total 0 0 Balance 0 0 - Medications Medications: Current Medications Amlodipine Besylate (Norvasc) 10 mg PO DAILY [facility] Last Admin: 10/13/17 10:00 Dose: Not Given Atorvastatin Calcium (Lipitor) 80 mg PO DAILY [facility] Last Admin: 10/12/17 09:53 Dose: 80 mg Clonidine HCl (Catapres) 0.1 mg PO BID [facility] Last Admin: 10/13/17 10:00 Dose: Not Given Cyproheptadine HCl (Periactin) 4 mg PO DAILY [facility] Last Admin: 10/13/17 10:00 Dose: Not Given Diphenhydramine HCl (Benadryl) 25 mg IVP Q6H PRN PRN Reason: Anaphylaxis Last Admin: 10/13/17 00:23 Dose: 25 mg Ferrous Gluconate (Fergon) 324 mg PO TID [facility] Last Admin: 10/13/17 13:50 Dose: 324 mg Home Med (Home Med) 1 unit PO DAILY [facility] Last Admin: 10/13/17 15:25 Dose: 1 unit Home Med (Home Med) 1 unit OU DAILY [facility] Last Admin: 10/13/17 10:40 Dose: 1 unit Sodium Chloride (Sodium Chloride 0.45%) 1,000 mls @ 80 mls/hr IV .[id number] [facility] Last Admin: 10/13/17 02:02 Dose: Not Given Aztreonam (Azactam 1 Gm) 100 mls @ 100 mls/hr IVPB Q8 [facility] PRN Reason: Protocol Stop: 10/16/17 06:01 Last Admin: 10/13/17 14:19 Dose: 100 mls/hr Metronidazole (Flagyl) 500 mg in 100 mls @ 100 mls/hr IVPB Q8 [facility] PRN Reason: Protocol Last Admin: 10/13/17 14:17 Dose: 100 mls/hr Insulin Human Regular (Humulin R High) 0 units SC ACHS [facility] PRN Reason: Protocol Last Admin: 10/13/17 17:05 Dose: 4 units Metoprolol Tartrate (Lopressor) 100 mg PO BID [facility] Mirtazapine (Remeron) 15 mg PO DAILY [facility] Last Admin: 10/13/17 10:00 Dose: Not Given Morphine Sulfate (Morphine) 0.5 mg IM Q4H PRN PRN Reason: Pain, Mild (1-3) Multivitamins (Thera Tab) 1 tab PO 0800 [facility] Ondansetron HCl (Zofran Inj) 4 mg IVP Q4 PRN PRN Reason: Nausea/Vomiting Last Admin: 10/13/17 13:52 Dose: 4 mg Pantoprazole Sodium (Protonix Inj) 40 mg IVP Q12 [facility] Sodium Bicarbonate (Sodium Bicarbonate Tab) 650 mg PO BID [facility] Last Admin: 10/13/17 10:30 Dose: Not Given Sucralfate (Carafate Oral Susp) 1 gm PO 0630,1130,1630,2200 [facility] Last Admin: 10/13/17 15:30 Dose: 1 gm - Labs Labs: 10/13/17 11:20 10/13/17 06:30 PT 14.6 SECONDS (9.4-12.5) H 10/13/17 06:30 INR 1.26 (0.93-1.08) H 10/13/17 06:30 APTT 20.8 Seconds (25.1-36.5) L 10/07/17 22:50 - Constitutional Appears: Chronically Ill - Head Exam Head Exam: NORMAL INSPECTION - Respiratory Exam Respiratory Exam: Decreased Breath Sounds - Cardiovascular Exam Cardiovascular Exam: +S1, +S2 - GI/Abdominal Exam GI & Abdominal Exam: Soft. absent: Tenderness Assessment and Plan - Assessment and Plan (Free Text) Plan: Assessment Systemic Inflammatory response syndrome, consider sepsis due to proctocolitis espohagitis, gastritis found on EGD today alzheimer's dementia DM dyslipidemia HTN history of diverticulitis S/P hemorrhoidectomy S/P hysterectomy S/P carpal tunnel surgery Plan continue Azactam and Flagyl day 5 and will continue to monitor clinically - target 7-10 days of antibiotics
--- NOTE | 2017-10-13 18:55 | CP.PCM.PN ---
Subjective - Date & Time of Evaluation Date of Evaluation: 10/13/17 Time of Evaluation: 11:00 - Subjective Subjective: Follow up Nephrology Consultation Note Assessment: critical Acute Kidney Injury (N17.9) improved GI bleed, Hypercalcemia, hypokalemia and hypomagnesemia Diabetic chronic Kidney Disease (E11.22) Hypertensive Chronic Kidney Disease (I12.9) Chronic Kidney Disease (N18.3) Stage 3 with 100 mg proteinuria (R80.9) likely due to DM/HTN Anemia (D64.9), HTN (I12.9) Plan No acute need for renal replacement therapy at this time. Hypertension control with meds as ordered. Patient not on ACEI/ARB due to recent MICHELE. increased lopressor to 100 bid Monitor Input/Output, daily weights and renal function with basic metabolic panel supplement electrolytes as needed added bicarb and iron supplements GI following Dose meds/antibiotics for improved GFR. Avoid nephrotoxins/NSAIDs Glycemic control Further work up for as per primary team Thanks for allowing me to participate in care of your patient. Will follow patient with you. Please call if any Qs Dr Tripp Copeland Office: [phone] Subjective: Noted events overnight.. Denies chest pain, palpitation, shortness of breath, leg swelling. All other negative except blood in vomitus. [employer] was called. Physical Examination: General Appearance: Comfortable, in no acute respiratory distress, co-operative . Vitals reviewed and noted as below Head; Atraumatic, normocephalic ENT: no ulcers no thrush. Tongue is midline. Oropharynx: no rash or ulcers. EYES: Pupils are equal, round and reactive to light accommodation. Eye muscles and extraocular movement intact. Sclera is anicteric. Neck; supple no lymphadenopathy, no thyromegaly or bruit Lungs: Normal respiratory rate/effort. Breath sounds bilateral equal and clear Heart: Normal rate. s1s2 normal. No rub or gallop. Extremities: no edema. No varicose veins Neurological: Patient is alert, awake No focal deficit. Strength bilateral appropriate and equal Skin: Warm and dry. Normal turgor. No rash. Palpitation: Normal elasticity for age Abdomen: Abdomen is soft. Bowel sounds +. There is no abdominal tenderness, no guarding/rigidity no organomegaly Psych: limitedinsight and normal affect/mood MSK: no joint tenderness or swelling. Digits and nails normal, no deformity : kidney or bladder not palpable Labs/imaging reviewed. Past medical history, past surgical history, family history, social history, allergy reviewed and noted as below Family hx: no hx of CKD. Rest non-contributory imaging: left kidney cyst Objective - Vital Signs/Intake and Output Vital Signs (last 24 hours): Temp Pulse Resp BP Pulse Ox 98.1 F 100 H 18 123/71 99 10/13/17 17:20 10/13/17 17:11 10/13/17 17:11 10/13/17 15:00 10/13/17 17:11 Intake and Output: 10/13/17 10/13/17 06:59 18:59 Intake Total 0 0 Balance 0 0 - Medications Medications: Current Medications Amlodipine Besylate (Norvasc) 10 mg PO DAILY [facility] Last Admin: 10/13/17 10:00 Dose: Not Given Atorvastatin Calcium (Lipitor) 80 mg PO DAILY [facility] Last Admin: 10/12/17 09:53 Dose: 80 mg Clonidine HCl (Catapres) 0.1 mg PO BID [facility] Last Admin: 10/13/17 10:00 Dose: Not Given Cyproheptadine HCl (Periactin) 4 mg PO DAILY [facility] Last Admin: 10/13/17 10:00 Dose: Not Given Diphenhydramine HCl (Benadryl) 25 mg IVP Q6H PRN PRN Reason: Anaphylaxis Last Admin: 10/13/17 00:23 Dose: 25 mg Ferrous Gluconate (Fergon) 324 mg PO TID [facility] Last Admin: 10/13/17 13:50 Dose: 324 mg Home Med (Home Med) 1 unit PO DAILY [facility] Last Admin: 10/13/17 15:25 Dose: 1 unit Home Med (Home Med) 1 unit OU DAILY [facility] Last Admin: 10/13/17 10:40 Dose: 1 unit Sodium Chloride (Sodium Chloride 0.45%) 1,000 mls @ 80 mls/hr IV .[id number] [facility] Last Admin: 10/13/17 02:02 Dose: Not Given Aztreonam (Azactam 1 Gm) 100 mls @ 100 mls/hr IVPB Q8 [facility] PRN Reason: Protocol Stop: 10/16/17 06:01 Last Admin: 10/13/17 14:19 Dose: 100 mls/hr Metronidazole (Flagyl) 500 mg in 100 mls @ 100 mls/hr IVPB Q8 [facility] PRN Reason: Protocol Last Admin: 10/13/17 14:17 Dose: 100 mls/hr Insulin Human Regular (Humulin R High) 0 units SC ACHS [facility] PRN Reason: Protocol Last Admin: 10/13/17 17:05 Dose: 4 units Metoprolol Tartrate (Lopressor) 100 mg PO BID [facility] Mirtazapine (Remeron) 15 mg PO DAILY [facility] Last Admin: 10/13/17 10:00 Dose: Not Given Morphine Sulfate (Morphine) 0.5 mg IM Q4H PRN PRN Reason: Pain, Mild (1-3) Last Admin: 10/13/17 18:37 Dose: 0.5 mg Multivitamins (Thera Tab) 1 tab PO 0800 [facility] Ondansetron HCl (Zofran Inj) 4 mg IVP Q4 PRN PRN Reason: Nausea/Vomiting Last Admin: 10/13/17 13:52 Dose: 4 mg Pantoprazole Sodium (Protonix Inj) 40 mg IVP Q12 [facility] Sodium Bicarbonate (Sodium Bicarbonate Tab) 650 mg PO BID [facility] Last Admin: 10/13/17 10:30 Dose: Not Given Sucralfate (Carafate Oral Susp) 1 gm PO 0630,1130,1630,2200 [facility] Last Admin: 10/13/17 15:30 Dose: 1 gm - Labs Labs: 10/13/17 11:20 10/13/17 06:30 PT 14.6 SECONDS (9.4-12.5) H 10/13/17 06:30 INR 1.26 (0.93-1.08) H 10/13/17 06:30 APTT 20.8 Seconds (25.1-36.5) L 10/07/17 22:50
[2017-10-14 00:13] LABS: HEMOGLOBIN 9.2 g/dL (12.0-16.0); MEAN CELL VOLUME 91.4 fl (80.0-105.0); MEAN CORPUSCULAR HEMOGLOBIN 30.5 pg (25.0-35.0); MEAN CORPUSCULAR HGB CONC 33.3 g/dl (31.0-37.0); MEAN PLATELET VOLUME 9.4 fl (7.0-11.0); RBC 3.02 10^6/uL (3.5-6.1); RED CELL DISTRIBUTION WIDTH 14.4 % (11.5-14.5)
--- NOTE | 2017-10-14 00:28 | CON ---
DATE: HISTORY OF PRESENT ILLNESS: History was obtained by a camera prototyping engineer, who is one of the nurses on the floor. The patient is a 77-year-old female, who has a history of hypertension, diverticulitis, dementia, who was brought in because of right upper quadrant pain. The patient underwent upper endoscopy today and the findings were consistent with grade 2 esophagitis, which was biopsied; 3 cm hiatus hernia; gastritis, which was biopsied and duodenal diverticulum. Following the procedure, the patient developed pain, which she points to the right side of the back. and also had an episode of hematemesis. The patient is unaware of any history of heart attack in the past. SOCIAL HISTORY: Non smoker, nondrinker. MEDICATIONS: Azactam 1 g intravenously q. 8 hours, Benadryl 25 mg intravenously every 6 hours, Carafate 1 g p.o. q.i.d., clonidine 0.1 mg twice a day, Flagyl 500 mg intravenously q. 8 hours, Lopressor 100 mg twice a day, Lipitor 80 mg once a day, Norvasc 10 mg once a day, Plavix 75 mg once a day. REVIEW OF SYSTEMS: No reported hypertension. No fevers or chills. PHYSICAL EXAMINATION GENERAL: Patient is an elderly female, who does not appear to be in acute distress. VITAL SIGNS: Blood pressure 138/61, heart rate of 102, temperature 98.5, respirations 20. HEENT: Pale conjunctivae. CHEST: Clear. HEART: S1, S2, regular. ABDOMEN: Soft. EXTREMITIES: No edema. LABORATORY DATA: Hemoglobin and hematocrit 9 and 26.9, white count and platelet count are within normal limits. SMA-7: Sodium 142, potassium 3.4, chloride 112, CO2 of 18, glucose 130, BUN 15, creatinine 1.0 and troponin 0.01. EKG done after the episode of chest pain revealed normal sinus rhythm with some nonspecific T-wave abnormality. ASSESSMENT: 1. Chest pain. Rule out myocardial infarction. 2. Esophagitis and gastritis with duodenal diverticulum, status post biopsy. 3. Uncontrolled diabetes mellitus. 4. Hypokalemia. RECOMMENDATIONS: Transfer the patient to telemetry. Discontinue Plavix. Obtain a portable chest x-ray. Markedly serial cardiac enzymes. Schedule patient for an echocardiogram. Andrade Lacey MD [facility] # [id number]
[2017-10-14] MEDS: Aztreonam 1 Gm in NS 100mL 100 ML IVPB SCH ×3 (05:38→21:44)
[2017-10-14] MEDS: metroNIDAZOLE IV 500 mg/100 ml 500 MG/100 ML BAG IVPB SCH ×3 (05:38→21:45)
[2017-10-14] MEDS: Sucralfate 1 gm/10 ml Oral Susp UD PO SCH ×4 (05:38→21:45)
[2017-10-14] MEDS: Sodium Chloride 0.45% 1,000 ML IV SCH ×2 (05:43→11:39)
[2017-10-14] MEDS: Insulin Reg-HIGH-Coverage SC SCH ×4 (07:30→22:36)
[2017-10-14 07:39] LABS: HEMOGLOBIN 8.2 g/dL (12.0-16.0); MEAN CELL VOLUME 91.8 fl (80.0-105.0); MEAN CORPUSCULAR HEMOGLOBIN 30.7 pg (25.0-35.0); MEAN CORPUSCULAR HGB CONC 33.5 g/dl (31.0-37.0); MEAN PLATELET VOLUME 9.6 fl (7.0-11.0); RBC 2.67 10^6/uL (3.5-6.1); RED CELL DISTRIBUTION WIDTH 14.5 % (11.5-14.5); WHITE BLOOD COUNT 6.9 10^3/ul (4.5-11.0)
[2017-10-14 08:17] LABS: ALB/GLOB RATIO 1.1 (1.1-1.8); ALBUMIN 2.9 g/dL (3.0-4.8); ALT/SGPT 32 U/L (7-56); AST/SGOT 39 U/L (14-36); BLOOD UREA NITROGEN 13 mg/dL (7-21); CALCIUM 8.3 mg/dL (8.4-10.5); GFR AFRICAN-AMERICAN > 60; GFR NON-AFRICAN AMERICAN > 60
[2017-10-14] MEDS: KETOTIFEN FUMARATE OU SCH (10:01)
[2017-10-14] MEDS: Multivitamin Therapeutic Tab PO SCH (10:03)
[2017-10-14] MEDS: Memantine Hcl [Namenda Xr] 28 MG PO SCH (10:05)
--- NOTE | 2017-10-14 12:39 | CP.PCM.PN ---
Subjective - Date & Time of Evaluation Date of Evaluation: 10/14/17 Time of Evaluation: 12:38 - Subjective Subjective: Follow up Nephrology Consultation Note Assessment: stable Acute Kidney Injury (N17.9) improved GI bleed, Hypercalcemia, hypokalemia and hypomagnesemia Diabetic chronic Kidney Disease (E11.22) Hypertensive Chronic Kidney Disease (I12.9) Chronic Kidney Disease (N18.3) Stage 3 with 100 mg proteinuria (R80.9) likely due to DM/HTN Anemia (D64.9), HTN (I12.9) Plan No acute need for renal replacement therapy at this time. Hypertension control with meds as ordered. Patient not on ACEI/ARB due to recent MICHELE. increased lopressor to 100 bid Monitor Input/Output, daily weights and renal function with basic metabolic panel supplement electrolytes as needed added bicarb and iron supplements GI following Dose meds/antibiotics for improved GFR. Avoid nephrotoxins/NSAIDs Glycemic control Further work up for as per primary team Thanks for allowing me to participate in care of your patient. Will sign off and see her on PRN basis. Please call if any Qs Dr Tripp Copeland Office: [phone] Subjective: Noted events overnight.. Denies chest pain, palpitation, shortness of breath, leg swelling. All other negative had EGD done Physical Examination: General Appearance: Comfortable, in no acute respiratory distress, co-operative . Vitals reviewed and noted as below Head; Atraumatic, normocephalic ENT: no ulcers no thrush. Tongue is midline. Oropharynx: no rash or ulcers. EYES: Pupils are equal, round and reactive to light accommodation. Eye muscles and extraocular movement intact. Sclera is anicteric. Neck; supple no lymphadenopathy, no thyromegaly or bruit Lungs: Normal respiratory rate/effort. Breath sounds bilateral equal and clear Heart: Normal rate. s1s2 normal. No rub or gallop. Extremities: no edema. No varicose veins Neurological: Patient is alert, awake No focal deficit. Strength bilateral appropriate and equal Skin: Warm and dry. Normal turgor. No rash. Palpitation: Normal elasticity for age Abdomen: Abdomen is soft. Bowel sounds +. There is no abdominal tenderness, no guarding/rigidity no organomegaly Psych: limitedinsight and normal affect/mood MSK: no joint tenderness or swelling. Digits and nails normal, no deformity : kidney or bladder not palpable Labs/imaging reviewed. Past medical history, past surgical history, family history, social history, allergy reviewed and noted as below Family hx: no hx of CKD. Rest non-contributory imaging: left kidney cyst Objective - Vital Signs/Intake and Output Vital Signs (last 24 hours): Temp Pulse Resp BP Pulse Ox 98.6 F 79 18 130/71 98 10/14/17 12:00 10/14/17 12:00 10/14/17 12:00 10/14/17 12:00 10/14/17 12:00 Intake and Output: 10/14/17 10/14/17 06:59 18:59 Intake Total 1080 400 Output Total 1100 460 Balance -20 -60 - Medications Medications: Current Medications Amlodipine Besylate (Norvasc) 10 mg PO DAILY [facility] Last Admin: 10/14/17 10:02 Dose: 10 mg Atorvastatin Calcium (Lipitor) 80 mg PO DAILY [facility] Last Admin: 10/14/17 10:04 Dose: 80 mg Clonidine HCl (Catapres) 0.1 mg PO BID [facility] Last Admin: 10/14/17 10:03 Dose: 0.1 mg Cyproheptadine HCl (Periactin) 4 mg PO DAILY [facility] Last Admin: 10/14/17 10:02 Dose: 4 mg Diphenhydramine HCl (Benadryl) 25 mg IVP Q6H PRN PRN Reason: Anaphylaxis Last Admin: 10/13/17 00:23 Dose: 25 mg Ferrous Gluconate (Fergon) 324 mg PO TID [facility] Last Admin: 10/14/17 10:01 Dose: 324 mg Home Med (Home Med) 1 unit PO DAILY [facility] Last Admin: 10/14/17 10:05 Dose: 1 unit Home Med (Home Med) 1 unit OU DAILY [facility] Last Admin: 10/14/17 10:01 Dose: 1 unit Sodium Chloride (Sodium Chloride 0.45%) 1,000 mls @ 80 mls/hr IV .[id number] [facility] Last Admin: 10/14/17 11:39 Dose: 80 mls/hr Aztreonam (Azactam 1 Gm) 100 mls @ 100 mls/hr IVPB Q8 [facility] PRN Reason: Protocol Stop: 10/16/17 06:01 Last Admin: 10/14/17 05:38 Dose: 100 mls/hr Metronidazole (Flagyl) 500 mg in 100 mls @ 100 mls/hr IVPB Q8 [facility] PRN Reason: Protocol Last Admin: 10/14/17 05:38 Dose: 100 mls/hr Potassium Chloride (Potassium Chloride 20 Meq/100 Ml) 20 meq in 100 mls @ 50 mls/hr IVPB Q2H [facility] Stop: 10/14/17 14:14 Last Admin: 10/14/17 11:40 Dose: 50 mls/hr Insulin Human Regular (Humulin R High) 0 units SC ACHS [facility] PRN Reason: Protocol Last Admin: 10/14/17 12:03 Dose: 7 units Metoprolol Tartrate (Lopressor) 100 mg PO BID [facility] Last Admin: 10/14/17 10:02 Dose: 100 mg Mirtazapine (Remeron) 15 mg PO DAILY [facility] Last Admin: 10/14/17 10:03 Dose: 15 mg Morphine Sulfate (Morphine) 0.5 mg IM Q4H PRN PRN Reason: Pain, Mild (1-3) Last Admin: 10/13/17 22:33 Dose: 0.5 mg Multivitamins (Thera Tab) 1 tab PO 0800 [facility] Last Admin: 10/14/17 10:03 Dose: 1 tab Ondansetron HCl (Zofran Inj) 4 mg IVP Q4 PRN PRN Reason: Nausea/Vomiting Last Admin: 10/13/17 21:34 Dose: 4 mg Pantoprazole Sodium (Protonix Inj) 40 mg IVP Q12 [facility] Last Admin: 10/14/17 10:02 Dose: 40 mg Sodium Bicarbonate (Sodium Bicarbonate Tab) 650 mg PO BID [facility] Last Admin: 10/14/17 10:03 Dose: 650 mg Sucralfate (Carafate Oral Susp) 1 gm PO 0630,1130,1630,2200 [facility] Last Admin: 10/14/17 12:02 Dose: 1 gm - Labs Labs: 10/14/17 07:00 10/14/17 07:00 PT 14.6 SECONDS (9.4-12.5) H 10/13/17 06:30 INR 1.26 (0.93-1.08) H 10/13/17 06:30 APTT 20.8 Seconds (25.1-36.5) L 10/07/17 22:50
--- NOTE | 2017-10-14 13:25 | PN ---
DATE: 10/14/2017 CARDIOLOGY FOLLOWUP SUBJECTIVE: The patient is in bed without shortness of breath, without chest pain. PHYSICAL EXAMINATION: VITAL SIGNS: Blood pressure is 169/60, heart rates in the 90s. NECK: Negative JVD. LUNGS: Without rales. HEART: With S1, S2. EXTREMITIES: Without edema. LABORATORY DATA: Hemoglobin is 8.2. Chemistries: BUN and creatinine are normal. Troponin yesterday was negative x1. IMPRESSION: 1. Transient chest pain. 2. No evidence for acute coronary syndrome. 3. Hypertension. 4. Marked anemia. 5. Esophagitis. 6. Diabetes mellitus. PLAN: Given these findings, there is no evidence for acute coronary syndrome. There is question whether the patient is having a GI bleed given the dropping hemoglobin. We will repeat a troponin today. Nabil George MD
--- NOTE | 2017-10-14 14:54 | CP.PCM.PN ---
Subjective - Date & Time of Evaluation Date of Evaluation: 10/14/17 Time of Evaluation: 14:50 - Subjective Subjective: RFV: Esophagitis S: no acute events. no further hematemesis. dennis clear liquid diet. hgb stable Objective - Vital Signs/Intake and Output Vital Signs (last 24 hours): Temp Pulse Resp BP Pulse Ox 98.6 F 79 18 130/71 98 10/14/17 12:00 10/14/17 12:00 10/14/17 12:00 10/14/17 12:00 10/14/17 12:00 Intake and Output: 10/14/17 10/14/17 06:59 18:59 Intake Total 1080 400 Output Total 1100 460 Balance -20 -60 - Medications Medications: Current Medications Amlodipine Besylate (Norvasc) 10 mg PO DAILY [facility] Last Admin: 10/14/17 10:02 Dose: 10 mg Atorvastatin Calcium (Lipitor) 80 mg PO DAILY [facility] Last Admin: 10/14/17 10:04 Dose: 80 mg Clonidine HCl (Catapres) 0.1 mg PO BID [facility] Last Admin: 10/14/17 10:03 Dose: 0.1 mg Cyproheptadine HCl (Periactin) 4 mg PO DAILY [facility] Last Admin: 10/14/17 10:02 Dose: 4 mg Diphenhydramine HCl (Benadryl) 25 mg IVP Q6H PRN PRN Reason: Anaphylaxis Last Admin: 10/13/17 00:23 Dose: 25 mg Ferrous Gluconate (Fergon) 324 mg PO TID [facility] Last Admin: 10/14/17 10:01 Dose: 324 mg Home Med (Home Med) 1 unit PO DAILY [facility] Last Admin: 10/14/17 10:05 Dose: 1 unit Home Med (Home Med) 1 unit OU DAILY [facility] Last Admin: 10/14/17 10:01 Dose: 1 unit Sodium Chloride (Sodium Chloride 0.45%) 1,000 mls @ 80 mls/hr IV .[id number] [facility] Last Admin: 10/14/17 11:39 Dose: 80 mls/hr Aztreonam (Azactam 1 Gm) 100 mls @ 100 mls/hr IVPB Q8 [facility] PRN Reason: Protocol Stop: 10/16/17 06:01 Last Admin: 10/14/17 13:39 Dose: 100 mls/hr Metronidazole (Flagyl) 500 mg in 100 mls @ 100 mls/hr IVPB Q8 [facility] PRN Reason: Protocol Last Admin: 10/14/17 13:27 Dose: 100 mls/hr Insulin Human Regular (Humulin R High) 0 units SC ACHS [facility] PRN Reason: Protocol Last Admin: 10/14/17 12:03 Dose: 7 units Metoprolol Tartrate (Lopressor) 100 mg PO BID [facility] Last Admin: 10/14/17 10:02 Dose: 100 mg Mirtazapine (Remeron) 15 mg PO DAILY [facility] Last Admin: 10/14/17 10:03 Dose: 15 mg Morphine Sulfate (Morphine) 0.5 mg IM Q4H PRN PRN Reason: Pain, Mild (1-3) Last Admin: 10/13/17 22:33 Dose: 0.5 mg Multivitamins (Thera Tab) 1 tab PO 0800 [facility] Last Admin: 10/14/17 10:03 Dose: 1 tab Ondansetron HCl (Zofran Inj) 4 mg IVP Q4 PRN PRN Reason: Nausea/Vomiting Last Admin: 10/13/17 21:34 Dose: 4 mg Pantoprazole Sodium (Protonix Inj) 40 mg IVP Q12 [facility] Last Admin: 10/14/17 10:02 Dose: 40 mg Sodium Bicarbonate (Sodium Bicarbonate Tab) 650 mg PO BID [facility] Last Admin: 10/14/17 10:03 Dose: 650 mg Sucralfate (Carafate Oral Susp) 1 gm PO 0630,1130,1630,2200 [facility] Last Admin: 10/14/17 12:02 Dose: 1 gm - Labs Labs: 10/14/17 07:00 10/14/17 07:00 PT 14.6 SECONDS (9.4-12.5) H 10/13/17 06:30 INR 1.26 (0.93-1.08) H 10/13/17 06:30 APTT 20.8 Seconds (25.1-36.5) L 10/07/17 22:50 - Constitutional Appears: No Acute Distress, Chronically Ill - Head Exam Head Exam: ATRAUMATIC, NORMOCEPHALIC - Eye Exam Eye Exam: Normal appearance. absent: Scleral icterus - ENT Exam ENT Exam: Mucous Membranes Moist - Respiratory Exam Respiratory Exam: NORMAL BREATHING PATTERN. absent: Respiratory Distress - Cardiovascular Exam Cardiovascular Exam: REGULAR RHYTHM, +S1 - GI/Abdominal Exam GI & Abdominal Exam: Soft. absent: Tenderness - Neurological Exam Neurological Exam: Alert, Oriented x3 - Psychiatric Exam Psychiatric exam: Normal Affect, Normal Mood - Skin Skin Exam: Dry, Warm Assessment and Plan - Assessment and Plan (Free Text) Assessment: 77 year old female with h/o DM, CVA, HLD, HTN, Diverticulosis a/w erosive esophagitis, gallstones, and anemia. 1. Erosive esophagitis 2. Anemia 3. Cholelithiasis Plan: - continue pantoprazole 40 mg BID -s/p recent EGD yesterday with esophagitis -continue carafate -hgb stable, no further bleeding -advance diet as tolerated to low fat -HIDA negative for cholecystitis
--- NOTE | 2017-10-14 16:57 | CARD ---
APPROVED REPORT EXAM: Two-dimensional and M-mode echocardiogram with Doppler and color Doppler. INDICATION Chest Pain 2D DIMENSIONS Left Atrium (2D)4.2 (1.6-4.0cm)IVSd1.0 (0.7-1.1cm) LVDd3.7 (3.9-5.9cm)PWd1.0 (0.7-1.1cm) LVDs2.4 (2.5-4.0cm)FS (%) 37.0 % LVEF (%)67.8 (>50%) M-Mode DIMENSIONS Aortic Root2.90 (2.2-3.7cm)Aortic Cusp Exc.1.80 (1.5-2.0cm) Aortic Valve AoV Peak Ctkeieiv461.0cm/sAoV VTI50.9cmAO Peak GR.23mmHg LVOT Peak Bspyxhoe651.0cm/sLVOT VTI46.70cmAO Mean GR.13mmHg Mitral Valve MV E Ygccrmob993.0cm/sMV A Utdsldph359.0cm/sE/A ratio0.7 TDI Lateral E' Peak V6.92cm/sMedial E' Peak V7.70cm/sE/Lateral E'14.6 E/Medial E'13.1 Pulmonary Valve PV Peak Zehhppqb22.8cm/sPV Peak Grad.4mmHg Tricuspid Valve TR Peak Ezoxdvwh650br/sRAP PFNGANLS20duLtHW Peak Gr.32mmHg XGAU73oxOd LEFT VENTRICLE The left ventricle is normal size. There is normal left ventricular wall thickness. The left ventricle is hyperdynamic. There is normal LV segmental wall motion. Transmitral Doppler flow pattern is Grade I-abnormal relaxation pattern. RIGHT VENTRICLE The right ventricle is normal size. There is normal right ventricular wall thickness. The right ventricular systolic function is normal. ATRIA The left atrium size is normal. The right atrium size is normal. AORTIC VALVE There is trace valvular aortic stenosis. MITRAL VALVE The mitral valve is mildly thickened. Mitral regurgitation is trace. TRICUSPID VALVE There is mild pulmonary hypertension. GREAT VESSELS The aortic root is normal in size. The IVC is normal in size and collapses >50% with inspiration. PERICARDIAL EFFUSION There is a trace loculated anterior pericardial effusion. <Conclusion> The left ventricle is normal size. There is normal left ventricular wall thickness. The left ventricle is hyperdynamic. There is normal LV segmental wall motion. Transmitral Doppler flow pattern is Grade I-abnormal relaxation pattern. There is mild pulmonary hypertension.
--- NOTE | 2017-10-14 18:56 | PN ---
DATE: 10/14/2017 SUBJECTIVE: The patient is in bed, in no acute distress, nontoxic. Patient seen in room 128, bed 3. No fevers. PHYSICAL EXAMINATION: VITAL SIGNS: Temperature is 98, blood pressure is 130/70, respiratory rate of 18, heart rate of 79 and oxygen saturation is 98% with nasal cannula. HEENT: Unremarkable. NECK: Supple. LUNGS: Decreased breath sounds. HEART: Normal S1, S2. ABDOMEN: Soft. LABORATORY DATA: Reveals a white count of 6.9, hemoglobin of 8, platelets of 292. BUN of 13, creatinine of 0.8. LFTs are noted. Immunology is noted. Blood cultures are no growth. ASSESSMENT AND PLAN: A 77-year-old female seen earlier this morning in 128, bed 3 with systemic inflammatory response syndrome and sepsis, Alzheimer's dementia, diabetes, dyslipidemia, hypertension, in the Intensive Care Unit 128, bed 3. Patient had surgery yesterday. We will follow closely with you. Con Herrera MD
[2017-10-15] MEDS: Aztreonam 1 Gm in NS 100mL 100 ML IVPB SCH (05:03)
[2017-10-15] MEDS: Sodium Chloride 0.45% 1,000 ML IV SCH ×2 (05:04→15:30)
[2017-10-15] MEDS: Sucralfate 1 gm/10 ml Oral Susp UD PO SCH ×3 (05:51→17:50)
[2017-10-15 05:59] VITALS: O2SAT 100
[2017-10-15] MEDS: metroNIDAZOLE IV 500 mg/100 ml 500 MG/100 ML BAG IVPB SCH (06:06)
[2017-10-15 07:18] LABS: HEMOGLOBIN 9.9 g/dL (12.0-16.0); MEAN CELL VOLUME 93.8 fl (80.0-105.0); MEAN CORPUSCULAR HEMOGLOBIN 30.7 pg (25.0-35.0); MEAN CORPUSCULAR HGB CONC 32.8 g/dl (31.0-37.0); MEAN PLATELET VOLUME 9.6 fl (7.0-11.0); RBC 3.22 10^6/uL (3.5-6.1); RED CELL DISTRIBUTION WIDTH 15.1 % (11.5-14.5)
[2017-10-15] MEDS: Insulin Reg-HIGH-Coverage SC SCH ×3 (07:30→17:41)
[2017-10-15 07:39] LABS: ALB/GLOB RATIO 1.2 (1.1-1.8); ALBUMIN 3.5 g/dL (3.0-4.8); ALT/SGPT 33 U/L (7-56); AST/SGOT 51 U/L (14-36); BLOOD UREA NITROGEN 8 mg/dL (7-21); CALCIUM 9.1 mg/dL (8.4-10.5); GFR AFRICAN-AMERICAN > 60; GFR NON-AFRICAN AMERICAN > 60
--- NOTE | 2017-10-15 08:53 | PN ---
DATE: 10/14/2017 SUBJECTIVE: I saw her in the intensive care unit this morning. She had some bleeding, GI yesterday after endoscopy. MEDICATIONS: She is on Azactam, Benadryl, Carafate four times a day, Catapres, iron, Flagyl, insulin, Lipitor, Lopressor, morphine, Norvasc, Periactin, Protonix twice a day, Remeron, sodium bicarbonate, IV fluids, Feratab, Zofran. OBJECTIVE: VITAL SIGNS: She has 99.1 temperature, 97 pulse, 125/67 blood pressure, 16 respiratory rate, and 99% O2 sat on room air. HEENT: Head is atraumatic, normocephalic. GENERAL: She is alert. She is talking in Korean. She is confused. HEART: Regular rate. LUNGS: Clear to auscultation. ABDOMEN: Soft. EXTREMITIES: No edema. She is not hungry. LABORATORY DATA: She has a 6.9 white count, 8.2 hemoglobin, 24.5 hematocrit with 292 platelets. She has a 140 sodium; potassium 3.2, replaced potassium. BUN 13, creatinine 0.8. GFR is greater than 60. Sugar is 121. Calcium is 8.3. Total bili is 0.4, AST is 39, ALT is 32, alk phos is 54. She is being seen by the electric scoop operator, Renal, Infectious Disease, GI. She had an upper endoscopy showing very erosive gastritis. She has systemic inflammatory response system, sepsis, esophagitis, gastritis, she has diabetes, Alzheimer's, and hypertension. She might need to be transfused. We will see what tomorrow's lab brings. If it is below 8 and she is still we are going to transfuse her. I will discuss with GI. multiple issues. Cornell Nevarez DO [facility]
--- NOTE | 2017-10-15 08:54 | CON ---
DATE: 10/14/2017 PRESENTATION: Patient is a 77-year-old female seen at bedside in the ICU. She was originally admitted to the hospital on 10/07/2017, presenting at the emergency department, having then brought in by her son complaining of right upper quadrant pain. Patient also carries diagnosis of advanced dementia, hypertension and diverticulitis. Patient's consultation was called for dementia. Patient additionally will be going to a [facility] or TCU and will need clearance for this Psychiatrically; so, we will do this today. Patient was on the floor on a regular unit and had an episode of vomiting robbie red blood. A rapid response was called. Patient was treated and transferred to the ICU for telemetry as there was not a bed available on the telemetry unit. On seeing today, she is resting quietly in bed. She is primarily Salvadorean speaking, is arousable, she is confused, cooperative, pleasant, but only oriented is to her name and very confused in most of other aspects as well. In reviewing patient's medications, it was noted that she was on Remeron 15 mg daily at bedtime. Patient is unable to answer any questions at all regarding her history or why she is on any particular medication. So, call was placed to her daughter, Halima with whom she lives. She lives with her daughter, her and their 3 children. She has a son, who is the daughter's brother, who is also very involved with the family and patient has been cared for home full care by her daughter's family up to this point. Evidentially, according to the daughter, she started with medical problems 5 or 6 years ago with dementia and confusion and things got dramatically worse when her 8 months ago. Patient had been put on the mirtazapine 7.5 mg at bedtime by her PMD Dr. Esquivel who is also patient's nephew. Patient did well with this, it helped with her mood, her appetite, her sleep until when her at which point it was increased to 15 mg at bedtime; so, she has been on this particular medication for at least 2 years on this dosage for at least 8 months. Her dementia has been progressing. She does not eat on her own or drink. She must be constantly reminded. She is seclusive off and on. She does enjoy social life with her grandchildren and her family. She needs help with her medications. She needs full care for her ADLS and she needs reminders for everything else. The plan for what I understand from the notes is that patient go to either [facility] or to TCU and family is in agreement with this. VITAL SIGNS: Patient's current vital signs include no temperature, but a pulse rate of 106, blood pressure of 169/69, O2 sat of 100% and respiratory rate of 42. She had an esophagastroduodenoscopy with biopsy done yesterday after the episode of the GI bleed. MENTAL STATUS EXAMINATION: Patient is only oriented to her name. She is pleasant, but she is confused. She is somewhat lethargic, but she is not able to give me any kind of her history or tell me much of anything. History was gathered from her daughter. Of note, she has no psychiatric history. She has never seen by a psychiatrist, she has never had a suicide attempt or psychiatric hospitalization. She did quite well in managing her life up until the point at which she started with dementia 5 or 6 years ago, she only required an antidepressant during that time and this has been prescribed by her PMD. DIAGNOSTIC IMPRESSION: Dementia, unspecified without behavioral disturbance. PLAN: Patient has no history of being suicidal or homicidal. She is not able to answer any questions, there is nothing in her behavior ever to indicate that she is suicidal or homicidal. Patient evidently had an episode of depression once she got diagnosed with Alzheimer's and again when her 8 months ago, but has been managed on mirtazapine 15 mg only at bedtime since. I will recommend her to continuing on this as it appears to have been beneficial. She has not had any behavioral issues according to the nurses and the documentation provided. She is cleared to go the TCU or [facility]. If she goes to an [facility], she should be followed up by a psychiatrist there within 48 to 72 hours. I will sign off on this patient. Please call if there are any further needs. Thank you for the consult. Shantel Llanos APN Flor Causey MD [facility] # [phone] [facility]
[2017-10-15] MEDS: Multivitamin Therapeutic Tab PO SCH (10:09)
[2017-10-15] MEDS: KETOTIFEN FUMARATE OU SCH (10:10)
[2017-10-15] MEDS: Memantine Hcl [Namenda Xr] 28 MG PO SCH (10:10)
--- NOTE | 2017-10-15 13:31 | PN ---
DATE: 10/15/2017 SUBJECTIVE: The patient is seen in bed, in no acute distress, nontoxic. PHYSICAL EXAMINATION: VITAL SIGNS: Temperature is 98, blood pressure is 140/50, respiratory rate of 20, heart rate of 92. HEENT: Unremarkable. NECK: Supple. LUNGS: Decreased breath sounds. HEART: Normal S1, S2. ABDOMEN: Soft, nontender. LABORATORY DATA: Reveals the patient's white count is 7, hemoglobin of 9, platelets are noted. BUN of 8, creatinine of 0.7. Urinalysis is noted. Microbiology reveals the blood cultures are no growth. ASSESSMENT AND PLAN: This is a 77-year-old female with systemic inflammatory response syndrome and sepsis, Alzheimer's dementia, diabetes, dyslipidemia and hypertension, who was seen earlier this morning. The patient had an endoscopy yesterday, esophagogastroduodenoscopy with biopsy, who was found to have erosive esophagitis and duodenal diverticulum by Dr. Kumar. Dr. García's note is reviewed from yesterday and diagnoses of erosive esophagitis, anemia and cholelithiasis. Review of orders patient to be on aztreonam, Flagyl with negative blood cultures, negative urinalysis, normal white count, negative chest x-ray. We will discontinue the antibiotics. Patient's CAT scan of the abdomen and pelvis was read by Dr. Walsh reviewed and concern about the findings on the CAT scan of the liver, the right hepatic lobe was grown by 0.8 cm hypodense lesion. We will discontinue the antibiotics. Patient has not had any fever during this admission, did have mild leukocytosis on admission. Awaiting for GI input regarding the liver lesion. No further antibiotics at this point. Con Herrera MD
--- NOTE | 2017-10-15 14:30 | PN ---
DATE: SUBJECTIVE: I saw her in the intensive care unit, resting comfortably in bed. She is alert and talking. She is on Azactam, Benadryl, Carafate, Catapres, Fergon, Flagyl, Lipitor, Lopressor, morphine, Norvasc, Periactin, Protonix, Remeron, IV fluids, sodium bicarbonate, Thera-Tabs, and Zofran. PHYSICAL EXAMINATION VITAL SIGNS: She has a 98.6 temperature, 92 pulse, 151/71 blood pressure, 20 respiratory rate, and 100% O2 sat on room air. HEENT: Head is atraumatic, normocephalic. HEART: Regular rate. LUNGS: Clear to auscultation. ABDOMEN: Soft, obese. EXTREMITIES: No edema. LABORATORY DATA: She has a 7 white count, 9.9 hemoglobin, 30.2 hematocrit with a 345 platelets. She has a 142 sodium, potassium 3.6, BUN is 8, creatinine 0.7, GFR is greater than 60, sugar is 108, calcium is 9.1, total bilirubin is 0.5, AST is 51, ALT is 33, alkaline phosphatase 53, total protein 6.3. She is being seen by numerous physicians; Infectious Disease, Renal, GI, Cardiology. She has multiple problems going on. She has systemic inflammatory response syndrome, sepsis, Alzheimer's dementia, diabetes, high cholesterol, hypertension. She had surgery yesterday. We will follow closely with you. Cornell Nevarez DO
[2017-10-15 17:17] VITALS: PULSE 85; RESP 22; TEMP 98.1
[2017-10-15 17:46] VITALS: BP 135/49
--- NOTE | 2017-10-15 18:07 | PN ---
DATE: 10/15/2017 SUBJECTIVE: The patient is asymptomatic, in bed. OBJECTIVE: VITAL SIGNS: Blood pressure 107/50, heart rates in the 70s. NECK: Negative JVD. LUNGS: Without rales. HEART: S1, S2. EXTREMITIES: Without edema. LABORATORY DATA: The hemoglobin is 9.9. Chemistries: BUN and creatinine unremarkable. Glucose is 186. IMPRESSION: 1. Anemia. 2. Resolution of chest pain. 3. Hypertension. 4. Esophagitis. 5. Diabetes mellitus. Given these findings, there is no evidence for acute coronary syndrome. Her hemoglobin had seemed stable. We will discontinue telemetry today. Nabil George MD
== END 2017-10-15 18:57 | DRG 380 ==
LOC: ED 21:14 → UNMERGE 10-08 02:42 → MERGE 10-08 02:42 → ERH 10-08 02:42 → EDUNIT# 10-08 02:42 → ERH 10-08 09:25 → 2RSO 10-08 10:12 → 5RNO 10-10 00:24 → ICU 10-13 16:49 → 5RNO 10-13 16:49 → UNDODISIN 10-15 18:57
PROVIDERS: ADMIT Family Medicine; ATTEND Family Medicine
PROC: 0DB68ZX Excision of Stomach, Via Natural or Artificial Opening Endoscopic, Diagnostic (ICD-10-PCS; 2017-10-13)
PROC: 0DB28ZX Excision of Middle Esophagus, Via Natural or Artificial Opening Endoscopic, Diagnostic (ICD-10-PCS; principal; 2017-10-13 09:00)
DX: K22.11 Ulcer of esophagus with bleeding (principal); A41.9 Sepsis, unspecified organism; N17.9 Acute kidney failure, unspecified; E83.52 Hypercalcemia; E11.22 Type 2 diabetes mellitus with diabetic chronic kidney disease; E83.42 Hypomagnesemia; M48.54XA Collapsed vertebra, not elsewhere classified, thoracic region, initial encounter for fracture; M48.56XA Collapsed vertebra, not elsewhere classified, lumbar region, initial encounter for fracture; I72.8 Aneurysm of other specified arteries; D64.9 Anemia, unspecified; E86.0 Dehydration; G30.9 Alzheimer's disease, unspecified; F02.80 Dementia in other diseases classified elsewhere, unspecified severity, without behavioral disturbance, psychotic disturbance, mood disturbance, and anxiety; I12.9 Hypertensive chronic kidney disease with stage 1 through stage 4 chronic kidney disease, or unspecified chronic kidney disease; N18.3 Chronic kidney disease, stage 3 (moderate); K29.70 Gastritis, unspecified, without bleeding; K44.9 Diaphragmatic hernia without obstruction or gangrene; K57.30 Diverticulosis of large intestine without perforation or abscess without bleeding; K80.20 Calculus of gallbladder without cholecystitis without obstruction; E78.00 Pure hypercholesterolemia, unspecified; E87.6 Hypokalemia; K57.10 Diverticulosis of small intestine without perforation or abscess without bleeding; Z86.73 Personal history of transient ischemic attack (TIA), and cerebral infarction without residual deficits; Z90.710 Acquired absence of both cervix and uterus

== ENCOUNTER 2017-10-15 18:50 | Inpatient (IN) | payer OTHER ==
[2017-10-15 20:40] VITALS: BMI 23.8
[2017-10-15] MEDS ORDERED: DiphenhydrAMINE 50 mg/ml Inj IVP PRN (20:49)
[2017-10-15] MEDS ORDERED: Morphine 2 mg/ml ISec IM PRN (20:52)
[2017-10-15] MEDS: Sucralfate 1 gm/10 ml Oral Susp UD PO SCH (22:49)
[2017-10-15] MEDS: Sodium Chloride 0.45% 1,000 ML IV SCH (23:41)
[2017-10-15] MEDS: Insulin Reg-HIGH-Coverage SC SCH (23:56)
[2017-10-16] MEDS: Sucralfate 1 gm/10 ml Oral Susp UD PO SCH ×4 (05:31→22:12)
[2017-10-16] MEDS: Insulin Reg-HIGH-Coverage SC SCH ×4 (06:54→23:59)
[2017-10-16 07:29] LABS: BASO # 0.02 K/mm3 (0.0-2.0); BASO % 0.5 % (0.0-3.0); EOS # 0.1 (0.0-0.7); EOS % 3.3 % (1.5-5.0); GRAN # 2.22 (1.4-6.5); GRAN % 51.6 % (50.0-68.0); LYMPH # 1.5 (1.2-3.4); LYMPH % 35.8 % (22.0-35.0); MEAN CELL VOLUME 91.6 fl (80.0-105.0); MEAN CORPUSCULAR HGB CONC 33.8 g/dl (31.0-37.0); MEAN PLATELET VOLUME 9.4 fl (7.0-11.0); MONO # 0.4 (0.1-0.6); MONO % 8.8 % (1.0-6.0); RBC 2.39 10^6/uL (3.5-6.1); RED CELL DISTRIBUTION WIDTH 15.5 % (11.5-14.5); WHITE BLOOD COUNT 4.3 10^3/ul (4.5-11.0)
[2017-10-16 07:40] LABS: HEMOGLOBIN 7.4 g/dL (12.0-16.0)
[2017-10-16 07:48] LABS: ALB/GLOB RATIO 1.1 (1.1-1.8); ALBUMIN 2.5 g/dL (3.0-4.8); ALT/SGPT 29 U/L (7-56); AST/SGOT 35 U/L (14-36); BLOOD UREA NITROGEN 7 mg/dL (7-21); CALCIUM 8.2 mg/dL (8.4-10.5); GFR AFRICAN-AMERICAN > 60; GFR NON-AFRICAN AMERICAN > 60
[2017-10-16] MEDS: Multivitamin Therapeutic Tab PO SCH (08:13)
[2017-10-16] MEDS ORDERED: Home Med 1 UNIT OU SCH (10:00)
[2017-10-16] MEDS ORDERED: Home Med 1 UNIT PO SCH (10:00)
[2017-10-16] MEDS: Sodium Chloride 0.45% 1,000 ML IV SCH (10:28)
[2017-10-16] MEDS ORDERED: Potassium Chloride 20 mEq ER Tab PO ONE (11:28)
[2017-10-16] MEDS: MEMANTINE 28 MG PO SCH (11:54)
[2017-10-16] MEDS: KETOTIFEN FUMARATE OU SCH (11:54)
--- NOTE | 2017-10-16 12:55 | CP.PCM.CON ---
History of Present Illness - History of Present Illness History of Present Illness: Initial Nephrology Consultation Note Assessment: stable Acute Kidney Injury (N17.9) resolved recent GI bleed, hypokalemia Anemia (D64.9), HTN (I12.9), DM Plan No acute need for renal replacement therapy at this time. renal function stable Hypertension control with meds as ordered. Patient not on ACEI/ARB due to recent MICHELE. can start if BP high supplement electrolytes as needed. ordered for KDUR 40 meq today continue with bicarb and iron supplements Dose meds/antibiotics for GFR>60. Avoid nephrotoxins/NSAIDs Glycemic control Further work up for as per primary team Thanks for allowing me to participate in care of your patient. Will sign off and see her on PRN basis. Please call if any Qs Dr Tripp Copeland Office: [phone] CC: none at this time HPI: pt is a 77 F with Hx of DM, HTN, hyperlipidemia was recently admitted with anemia, GI bleed s/p EGD, MICHELE and hypercalcemia now in rehab. renal consult for MICHELE, HTN and electrolyets management ROS: Noted events overnight. Denies chest pain, palpitation, shortness of breath, leg swelling. All other negative Physical Examination: getting PRBC General Appearance: Comfortable, in no acute respiratory distress, co-operative . Vitals reviewed and noted as below Head; Atraumatic, normocephalic ENT: no ulcers no thrush. Tongue is midline. Oropharynx: no rash or ulcers. EYES: Pupils are equal, round and reactive to light accommodation. Eye muscles and extraocular movement intact. Sclera is anicteric. Neck; supple no lymphadenopathy, no thyromegaly or bruit Lungs: Normal respiratory rate/effort. Breath sounds bilateral equal and clear Heart: Normal rate. s1s2 normal. No rub or gallop. Extremities: no edema. No varicose veins Neurological: Patient is alert, awake No focal deficit. Strength bilateral appropriate and equal Skin: Warm and dry. Normal turgor. No rash. Palpitation: Normal elasticity for age Abdomen: Abdomen is soft. Bowel sounds +. There is no abdominal tenderness, no guarding/rigidity no organomegaly Psych: limited insight and normal affect/mood MSK: no joint tenderness or swelling. Digits and nails normal, no deformity : kidney or bladder not palpable Labs/imaging reviewed. Past medical history, past surgical history, family history, social history, allergy reviewed and noted as below Family hx: no hx of CKD. Rest non-contributory imaging: left kidney cyst kappa/lambda normal. urine ADRIÁN neg Past Patient History - Tetanus Immunizations Tetanus Immunization: Unknown - Past Social History Smoking Status: Never Smoked - CARDIAC Hx Cardiac Disorders: Yes Hx Hypercholesterolemia: Yes Hx Hypertension: Yes - NEUROLOGICAL Hx Neurological Disorder: Yes Hx Alzheimer's Disease: Yes Hx Dementia: Yes - HEENT Hx HEENT Problems: No - RENAL Hx Chronic Kidney Disease: No - ENDOCRINE/METABOLIC Hx Diabetes Mellitus Type 2: Yes - HEMATOLOGICAL/ONCOLOGICAL Hx Blood Transfusions: No Hx Blood Transfusion Reaction: No - INTEGUMENTARY Hx Dermatological Problems: No - MUSCULOSKELETAL/RHEUMATOLOGICAL Hx Falls: No - GASTROINTESTINAL Hx Gastrointestinal Disorders: Yes - GENITOURINARY/GYNECOLOGICAL Hx Genitourinary Disorders: No Hx Reproductive Disorders: No - PSYCHIATRIC Hx Substance Use: No - SURGICAL HISTORY Hx Surgeries: Yes (HEMORRHOIDECTOMY,HYSTERECTOMY,BILATERAL CARPAL TUNNEL SX.) - ANESTHESIA Hx Anesthesia Reactions: No Hx Malignant Hyperthermia: No Meds Allergies/Adverse Reactions: Allergies Allergy/AdvReac Type Severity Reaction Status Date / Time iodine Allergy ANAPHYLAXIS Verified 10/15/17 20:40 penicillin G AdvReac SWELLING Verified 10/15/17 20:40 - Medications Medications: Current Medications Alprazolam (Xanax) 0.25 mg PO TID PRN; Protocol PRN Reason: Anxiety Stop: 10/23/17 14:01 Amlodipine Besylate (Norvasc) 10 mg PO DAILY [facility] Last Admin: 10/16/17 11:36 Dose: 10 mg Atorvastatin Calcium (Lipitor) 80 mg PO DIN [facility] Clonidine HCl (Catapres) 0.1 mg PO BID [facility] Last Admin: 10/16/17 10:31 Dose: 0.1 mg Cyproheptadine HCl (Periactin) 4 mg PO DAILY [facility] Last Admin: 10/16/17 10:32 Dose: 4 mg Diphenhydramine HCl (Benadryl) 25 mg IVP Q6H PRN PRN Reason: Anaphylaxis Diphenhydramine HCl (Benadryl) 25 mg PO Q8 PRN PRN Reason: Anxiety Last Admin: 10/15/17 23:28 Dose: 25 mg Ferrous Gluconate (Fergon) 324 mg PO TID [facility] Last Admin: 10/16/17 10:31 Dose: 324 mg Home Med (Home Med) 0 unit OU DAILY [facility] Last Admin: 10/16/17 11:54 Dose: Not Given Home Med (Home Med) 1 unit PO DAILY [facility] Last Admin: 10/16/17 11:54 Dose: Not Given Insulin Human Regular (Humulin R High) 1 units SC ACHS [facility] PRN Reason: Protocol Last Admin: 10/16/17 11:51 Dose: Not Given Metoprolol Tartrate (Lopressor) 100 mg PO 0800,1800 [facility] Last Admin: 10/16/17 08:12 Dose: Not Given Mirtazapine (Remeron) 15 mg PO DAILY [facility] Last Admin: 10/16/17 10:33 Dose: 15 mg Morphine Sulfate (Morphine) 0.5 mg IM Q4H PRN PRN Reason: Pain, Mild (1-3) Multivitamins (Thera Tab) 1 tab PO 0800 [facility] Last Admin: 10/16/17 08:13 Dose: 1 tab Ondansetron HCl (Zofran Inj) 4 mg IVP Q4H PRN PRN Reason: Nausea/Vomiting Pantoprazole Sodium (Protonix Inj) 40 mg IVP Q12 [facility] Last Admin: 10/16/17 10:33 Dose: 40 mg Sodium Bicarbonate (Sodium Bicarbonate Tab) 650 mg PO BID [facility] Last Admin: 10/16/17 10:33 Dose: 650 mg Sucralfate (Carafate Oral Susp) 1 gm PO 0630,1130,1630,2200 [facility] Last Admin: 10/16/17 11:52 Dose: 1 gm Results - Vital Signs Recent Vital Signs: Last Vital Signs Temp 98.2 F 10/16/17 00:53 Pulse 82 10/16/17 10:31 Resp 18 10/16/17 00:53 BP 152/55 H 10/16/17 11:36 Pulse Ox - Labs Result Diagrams: 10/16/17 06:30 10/16/17 06:30 Labs: Laboratory Results - last 24 hr 10/16/17 10/16/17 10/16/17 04:24 06:30 06:30 WBC 4.3 L D RBC 2.39 L Hgb 7.4 L D Hct 21.9 L MCV 91.6 MCH 31.0 MCHC 33.8 RDW 15.5 H Plt Count 290 MPV 9.4 Gran % 51.6 Lymph % (Auto) 35.8 H [place] % (Auto) 8.8 H Eos % (Auto) 3.3 Baso % (Auto) 0.5 Gran # 2.22 Lymph # (Auto) 1.5 [place] # (Auto) 0.4 Eos # (Auto) 0.1 Baso # (Auto) 0.02 Sodium 140 Potassium 3.2 L Chloride 113 H Carbon Dioxide 19 L Anion Gap 11 BUN 7 Creatinine 0.7 Est GFR ( Amer) > 60 Est GFR (Non-Af Amer) > 60 POC Glucose (mg/dL) 127 H Random Glucose 128 H Calcium 8.2 L Total Bilirubin 0.3 AST 35 ALT 29 Alkaline Phosphatase 42 Total Protein 4.7 L Albumin 2.5 L Globulin 2.3 Albumin/Globulin Ratio 1.1
--- NOTE | 2017-10-16 13:02 | PN ---
DATE: 10/16/2017 CARDIOLOGY FOLLOWUP SUBJECTIVE: Patient is comfortable in bed. PHYSICAL EXAMINATION: VITAL SIGNS: Blood pressure 108/56, heart rate in the 80s. NECK: Negative JVD. LUNGS: Without rales. HEART: S1, S2. EXTREMITIES: Without edema. LABORATORY DATA: Hemoglobin is down to 7.4. Chemistries, BUN and creatinine are normal. Glucose is 128. IMPRESSION: 1. Marked anemia. 2. Possible gastrointestinal bleed. 3. Resolution of chest pain. 4. Diabetes mellitus. Given these findings, the patient is receiving packed red blood cells today. We will need to rule out a gastrointestinal bleed. Nabil Geogre MD
--- NOTE | 2017-10-16 17:41 | CP.PCM.PN ---
Subjective - Date & Time of Evaluation Date of Evaluation: 10/16/17 Time of Evaluation: 17:37 - Subjective Subjective: RFV: Anemia S: No acute events. No overt GI bleeding. No hematochezia, melena, or hematemesis. Objective - Vital Signs/Intake and Output Vital Signs (last 24 hours): Temp Pulse Resp BP Pulse Ox 98.2 F 82 18 149/58 L 10/16/17 00:53 10/16/17 10:31 10/16/17 00:53 10/16/17 14:31 - Medications Medications: Current Medications Alprazolam (Xanax) 0.25 mg PO TID PRN; Protocol PRN Reason: Anxiety Stop: 10/23/17 14:01 Amlodipine Besylate (Norvasc) 10 mg PO DAILY [facility] Last Admin: 10/16/17 11:36 Dose: 10 mg Atorvastatin Calcium (Lipitor) 80 mg PO DIN [facility] Clonidine HCl (Catapres) 0.1 mg PO BID [facility] Last Admin: 10/16/17 10:31 Dose: 0.1 mg Cyproheptadine HCl (Periactin) 4 mg PO DAILY [facility] Last Admin: 10/16/17 10:32 Dose: 4 mg Diphenhydramine HCl (Benadryl) 25 mg IVP Q6H PRN PRN Reason: Anaphylaxis Diphenhydramine HCl (Benadryl) 25 mg PO Q8 PRN PRN Reason: Anxiety Last Admin: 10/15/17 23:28 Dose: 25 mg Ferrous Gluconate (Fergon) 324 mg PO TID [facility] Last Admin: 10/16/17 10:31 Dose: 324 mg Home Med (Home Med) 0 unit OU DAILY [facility] Last Admin: 10/16/17 11:54 Dose: Not Given Home Med (Home Med) 1 unit PO DAILY [facility] Last Admin: 10/16/17 11:54 Dose: Not Given Insulin Human Regular (Humulin R High) 1 units SC ACHS [facility] PRN Reason: Protocol Last Admin: 10/16/17 11:51 Dose: Not Given Metoprolol Tartrate (Lopressor) 100 mg PO 0800,1800 [facility] Last Admin: 10/16/17 08:12 Dose: Not Given Mirtazapine (Remeron) 15 mg PO DAILY [facility] Last Admin: 10/16/17 10:33 Dose: 15 mg Morphine Sulfate (Morphine) 0.5 mg IM Q4H PRN PRN Reason: Pain, Mild (1-3) Multivitamins (Thera Tab) 1 tab PO 0800 [facility] Last Admin: 10/16/17 08:13 Dose: 1 tab Ondansetron HCl (Zofran Inj) 4 mg IVP Q4H PRN PRN Reason: Nausea/Vomiting Pantoprazole Sodium (Protonix Inj) 40 mg IVP Q12 [facility] Last Admin: 10/16/17 10:33 Dose: 40 mg Sodium Bicarbonate (Sodium Bicarbonate Tab) 650 mg PO BID [facility] Last Admin: 10/16/17 10:33 Dose: 650 mg Sucralfate (Carafate Oral Susp) 1 gm PO 0630,1130,1630,2200 [facility] Last Admin: 10/16/17 11:52 Dose: 1 gm - Labs Labs: 10/16/17 06:30 10/16/17 06:30 - Constitutional Appears: No Acute Distress, Chronically Ill - Head Exam Head Exam: ATRAUMATIC, NORMOCEPHALIC - Eye Exam Eye Exam: Normal appearance. absent: Scleral icterus Pupil Exam: PERRL - Neck Exam Neck Exam: absent: Lymphadenopathy, Thyromegaly - Respiratory Exam Respiratory Exam: NORMAL BREATHING PATTERN - Cardiovascular Exam Cardiovascular Exam: +S1, +S2 - GI/Abdominal Exam GI & Abdominal Exam: Soft. absent: Tenderness - Neurological Exam Neurological Exam: Alert, Oriented x3 Assessment and Plan - Assessment and Plan (Free Text) Assessment: 77 year old female with h/o DM, CVA, HLD, HTN, Diverticulosis a/w erosive esophagitis, gallstones, and anemia. 1. Erosive esophagitis 2. Anemia 3. Cholelithiasis 4. History of colon polyps 5. Diverticulosis Plan: - continue pantoprazole 40 mg BID -s/p EGD this hospitalization without evidence of bleeding, just esophagitis -had recent colonoscopy with polypectomy -no active GI bleeding -asymptomatic hemoglobin drop by 2 points, but also with drop in WBC/Plts, possible dilutional -getting transfused today -will monitor for any bleeding -low yield/minimial benefit to repeat colonoscopy eval considering recent exam and no evidence of bleeding -workup alternative causes of anemia
[2017-10-16] MEDS ORDERED: Insulin Reg-HIGH-Coverage SC SCH ×3 (17:42→17:54)
--- NOTE | 2017-10-16 22:23 | HP ---
HISTORY OF PRESENT ILLNESS: She was on the hospital side; she is now in the TCU. She is resting comfortably in bed. She is alert. She gave me a hug. She is pleasantly confused. I had a long conversation with her family today. They wanted to have a Xanax. We also want to have GI come in for colonoscopy. She is a 77-year-old female with GI bleed, erosive gastritis on the upper endoscopy, SIRS, sepsis, hypertension, diabetes. Presently, this morning, she is in the TCU, sitting up comfortably. PAST MEDICAL HISTORY: Advanced dementia, diverticulitis, history of hypertension, diabetes, fibroid removed in the past. FAMILY HISTORY: No family history. SOCIAL HISTORY: Never smoked. No alcohol. No drugs. MEDICATIONS: She is on IV fluids, Benadryl, Carafate, Catapres, Fergon, insulin, potassium, Lipitor, Lopressor, morphine, Norvasc, Periactin, Protonix, Remeron, sodium bicarb, Thera-Tab, and Zofran. ALLERGIES: SHE HAS ALLERGIES TO IODINE AND PENICILLIN. REVIEW OF SYSTEMS: She is alert. She talks Thai; I had a parcel wrapper with me. No acute vision or hearing changes. No chest pain. No shortness of breath. No abdominal pain. She is in good spirits. No skin problems. PHYSICAL EXAMINATION: VITAL SIGNS: 98.2 temp, 73 pulse, 110/64 blood pressure, 18 respiratory rate. HEENT: Her head is atraumatic, normocephalic. Her throat is moist. NECK: Supple. HEART: Regular rate. LUNGS: Decreased breath sounds, but clear to auscultation. ABDOMEN: Soft, obese, nontender. Positive bowel sounds. EXTREMITIES: Have no edema. PSYCHIATRIC: She is pleasantly confused. No acute distress. SKIN: Warm and dry. LYMPH NODES: Thyroid midline. No palpable lymphadenopathy. NEUROLOGIC: Cranial nerves II through XII grossly intact. GCS is 15. LABORATORY DATA: She has a 140 sodium, potassium is 3.2, I am going to replace the potassium. She has a BUN of 7, creatinine 0.7, GFR is greater than 60, sugar is 128, calcium is 8.2. Total bili is 0.3, AST is 35, ALT is 29, alk phos 42. She has a white count of 4.3, hemoglobin 7.4, lower. I am going to transfuse her 2 units of packed red blood cells today. I gave her Lasix 40 IV, one-time dose in between. Hematocrit is 21.9, platelets of 290. IMPRESSION AND PLAN: She is going to have consults; she will have a consult with GI. I gave her Xanax. We will check her labs tomorrow. She is here for physical therapy. Hopefully, they can do a colonoscopy on her, who is now with severe anemia. Cornell Nevarez DO
--- NOTE | 2017-10-17 04:32 | CON ---
DATE: 10/16/2017 LOCATION: The patient is seen in room 303 this morning. CHIEF COMPLAINT: Weakness. 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 The patient empirically was given antibiotics, and eventually antibiotics were discontinued. The patient had no fevers, no chills. All the cultures were negative. Now, transferred to Transitional Care for further deconditioning. REVIEW OF SYSTEMS: No fevers. No chills. No abdominal pain, diarrhea or constipation. PAST MEDICAL HISTORY: Significant for diabetes mellitus, dyslipidemia, hypertension, diverticulitis and Alzheimer's. PAST SURGICAL HISTORY: Significant for hysterectomy and carpal tunnel surgery. ALLERGIES: PATIENT IS ALLERGIC TO PENICILLIN. PHYSICAL EXAMINATION: VITAL SIGNS: On exam, patient's temperature is 98, blood pressure is 120/70, respiratory rate is 16. HEENT: Examination of HEENT is unremarkable. NECK: Supple. LUNGS: Have decreased breath sounds. HEART: Normal S1, S2. ABDOMEN: Soft, nontender. LABORATORY DATA: Laboratory examination reveals a white count of 4.3 and hemoglobin of 7. BUN is 7 and creatinine of 0.7. ASSESSMENT AND PLAN: This is a 77-year-old female with a history of diabetes, cerebrovascular accident, hyperlipidemia, dyslipidemia, hypertension, diverticulitis. The patient has erosive esophagitis and duodenal diverticular disease, anemia. Currently, patient is off of antibiotics; awaiting for GI to comment about her CAT scan of the liver and its findings. We will follow closely with you. Con Herrera MD
--- NOTE | 2017-10-17 05:21 | CP.PCM.PN ---
<Matthew Zurita - Last Filed: 10/17/17 12:43> Subjective - Date & Time of Evaluation Date of Evaluation: 10/17/17 Time of Evaluation: 05:18 - Subjective Subjective: GI progress note for Dr. Kumar's service - Matthew Zurita PGY2 Patient seen and examined at bedside this morning. No acute overnight events or new complaints reported. Per nursing, no report of melena, hematochezia, hematemesis. Patient denies abdominal pain, nausea, vomiting. Reportedly ambulates with assistance. 12point ROS as per above otherwise negative Objective - Vital Signs/Intake and Output Vital Signs (last 24 hours): Temp Pulse Resp BP Pulse Ox 98.6 F 106 H 18 109/64 99 10/16/17 17:42 10/16/17 17:45 10/16/17 17:42 10/16/17 17:45 10/16/17 17:42 - Medications Medications: Current Medications Alprazolam (Xanax) 0.25 mg PO TID PRN; Protocol PRN Reason: Anxiety Stop: 10/23/17 14:01 Last Admin: 10/16/17 22:32 Dose: 0.25 mg Amlodipine Besylate (Norvasc) 10 mg PO DAILY [facility] Last Admin: 10/16/17 11:36 Dose: 10 mg Atorvastatin Calcium (Lipitor) 80 mg PO DIN [facility] Last Admin: 10/16/17 17:43 Dose: 80 mg Clonidine HCl (Catapres) 0.1 mg PO BID [facility] Last Admin: 10/16/17 17:44 Dose: 0.1 mg Cyproheptadine HCl (Periactin) 4 mg PO DAILY [facility] Last Admin: 10/16/17 10:32 Dose: 4 mg Diphenhydramine HCl (Benadryl) 25 mg IVP Q6H PRN PRN Reason: Anaphylaxis Diphenhydramine HCl (Benadryl) 25 mg PO Q8 PRN PRN Reason: Anxiety Last Admin: 10/16/17 22:12 Dose: 25 mg Ferrous Gluconate (Fergon) 324 mg PO TID [facility] Last Admin: 10/16/17 17:51 Dose: 324 mg Home Med (Home Med) 0 unit OU DAILY [facility] Last Admin: 10/16/17 11:54 Dose: Not Given Home Med (Home Med) 1 unit PO DAILY [facility] Last Admin: 02/15/18 11:54 Dose: Not Given Insulin Human Regular (Humulin R High) 0 units SC ACHS [facility] PRN Reason: Protocol Last Admin: 10/16/17 23:59 Dose: Not Given Metoprolol Tartrate (Lopressor) 100 mg PO 0800,1800 [facility] Last Admin: 10/16/17 17:45 Dose: 100 mg Mirtazapine (Remeron) 15 mg PO DAILY [facility] Last Admin: 10/16/17 10:33 Dose: 15 mg Morphine Sulfate (Morphine) 0.5 mg IM Q4H PRN PRN Reason: Pain, Mild (1-3) Multivitamins (Thera Tab) 1 tab PO 0800 [facility] Last Admin: 10/16/17 08:13 Dose: 1 tab Ondansetron HCl (Zofran Inj) 4 mg IVP Q4H PRN PRN Reason: Nausea/Vomiting Pantoprazole Sodium (Protonix Inj) 40 mg IVP Q12 [facility] Last Admin: 10/16/17 21:35 Dose: 40 mg Sodium Bicarbonate (Sodium Bicarbonate Tab) 650 mg PO BID [facility] Last Admin: 10/16/17 17:45 Dose: 650 mg Sucralfate (Carafate Oral Susp) 1 gm PO 0630,1130,1630,2200 [facility] Last Admin: 10/16/17 22:12 Dose: 1 gm - Labs Labs: 10/16/17 06:30 10/16/17 06:30 - Constitutional Appears: No Acute Distress - Head Exam Head Exam: ATRAUMATIC, NORMOCEPHALIC - Eye Exam Eye Exam: EOMI, PERRL - ENT Exam ENT Exam: Mucous Membranes Moist - Respiratory Exam Respiratory Exam: absent: Rales, Rhonchi, Wheezes - Cardiovascular Exam Cardiovascular Exam: +S1, +S2. absent: Clicks, Gallop, Rubs - GI/Abdominal Exam GI & Abdominal Exam: Distended, Soft. absent: Firm, Guarding, Rigid, Tenderness , Rebound Additional comments: no hepatosplenomegaly - Extremities Exam Extremities Exam: Normal Inspection. absent: Pedal Edema - Neurological Exam Neurological Exam: Alert, Awake - Psychiatric Exam Psychiatric exam: Normal Affect, Normal Mood - Skin Skin Exam: Dry, Intact, Normal Color, Warm Assessment and Plan - Assessment and Plan (Free Text) Plan: 77yo female with history of DM, CVA, HLD, HTN, erosive esophagitis, cholelithiasis and anemia. GI consulted for evaluation of anemia. 1. Erosive esophagitis 2. Normocytic anemia 3. Cholelithiasis 4. History of colon polyps 5. Diverticulosis Plan: -No overt signs of active bleeding -Patient received 2units pRBC transfusion with appropriate response of hemoglobin -Continue pantoprazole 40 mg PO BID and carafate QID -Diet may be advanced as tolerated -EGD on 10/13/17 revealed no evidence of bleeding, LA Grade D esophagitis, hiatus hernia and gastritis -EGD biopsies revealed negative for hpylori and malignancy -Colonoscopy at [facility] [place] reportedly revealed sessile polyp path pending < 1 cm in sigmoid -Minimal benefit to repeat colonoscopy considering recent exam and no evidence of bleeding, evaluate for alternative causes of anemia -No further GI intervention planned at this time. We will sign off, please reconsult as deemed necessary. Thank you for this consult. Patient seen and case discussed/reviewed with attending, Dr. Kumar <Lamont Kumar - Last Filed: 10/17/17 12:56> Objective - Vital Signs/Intake and Output Vital Signs (last 24 hours): Temp Pulse Resp BP Pulse Ox 98.6 F 94 H 18 145/74 99 10/16/17 17:42 10/17/17 10:00 10/16/17 17:42 10/17/17 10:00 10/16/17 17:42 - Medications Medications: Current Medications Alprazolam (Xanax) 0.25 mg PO TID PRN; Protocol PRN Reason: Anxiety Stop: 10/23/17 14:01 Last Admin: 10/16/17 22:32 Dose: 0.25 mg Amlodipine Besylate (Norvasc) 10 mg PO DAILY [facility] Last Admin: 10/17/17 10:00 Dose: Not Given Atorvastatin Calcium (Lipitor) 80 mg PO DIN [facility] Last Admin: 10/16/17 17:43 Dose: 80 mg Clonidine HCl (Catapres) 0.1 mg PO BID [facility] Last Admin: 10/17/17 10:00 Dose: 0.1 mg Cyproheptadine HCl (Periactin) 4 mg PO DAILY [facility] Last Admin: 10/17/17 10:00 Dose: Not Given Diphenhydramine HCl (Benadryl) 25 mg IVP Q6H PRN PRN Reason: Anaphylaxis Diphenhydramine HCl (Benadryl) 25 mg PO Q8 PRN PRN Reason: Anxiety Last Admin: 10/16/17 22:12 Dose: 25 mg Ferrous Gluconate (Fergon) 324 mg PO TID [facility] Last Admin: 10/17/17 10:00 Dose: 324 mg Home Med (Home Med) 0 unit OU DAILY [facility] Last Admin: 10/17/17 10:00 Dose: 1 unit Home Med (Home Med) 1 unit PO DAILY [facility] Last Admin: 10/17/17 10:00 Dose: 1 unit Insulin Human Regular (Humulin R High) 0 units SC ACHS [facility] PRN Reason: Protocol Last Admin: 10/17/17 12:27 Dose: 2 units Metoprolol Tartrate (Lopressor) 100 mg PO 0800,1800 [facility] Last Admin: 10/17/17 08:13 Dose: Not Given Mirtazapine (Remeron) 15 mg PO HS [facility] Morphine Sulfate (Morphine) 0.5 mg IM Q4H PRN PRN Reason: Pain, Mild (1-3) Multivitamins (Thera Tab) 1 tab PO 0800 [facility] Last Admin: 10/17/17 12:31 Dose: 1 tab Ondansetron HCl (Zofran Inj) 4 mg IVP Q4H PRN PRN Reason: Nausea/Vomiting Pantoprazole Sodium (Protonix Ec Tab) 40 mg PO 0600,1600 [facility] Sodium Bicarbonate (Sodium Bicarbonate Tab) 650 mg PO BID [facility] Last Admin: 10/17/17 10:00 Dose: 650 mg Sucralfate (Carafate Oral Susp) 1 gm PO 0630,1130,1630,2200 [facility] Last Admin: 10/17/17 12:21 Dose: 1 gm - Labs Labs: 10/17/17 07:00 10/17/17 07:00 Attending/Attestation - Attestation I have personally seen and examined this patient.: Yes I have fully participated in the care of the patient.: Yes I have reviewed all pertinent clinical information, including history, physical exam and plan: Yes Notes (Text): 10/17/17 12:54 I have seen and examined patient with spanish medical interpreter. No acute events overnight, she is seen resting in bed comfortably. Today she denies abdominal pain, nausea, vomiting, fever/chills. She continues to report poor appetite but denies dysphagia or odynophagia. She had a normal bowel movement yesterday according to patient. DM CVA HTN Dysphagia, s/p EGD 4 days ago showing severe erosive distal esophagitis, confirmed on biopsies Anemia - H/H stable s/p PRBC transfusion, continue to monitor. No signs of overt bleeding noted. - Advance diet as tolerated - Continue with twice daily PO PPI therapy and carafate regimen - Currently no further GI interventions planned, will sign off case. Please reconsult as necessary, thank you.
[2017-10-17] MEDS: Sucralfate 1 gm/10 ml Oral Susp UD PO SCH ×4 (05:54→22:00)
[2017-10-17 07:31] LABS: MEAN CORPUSCULAR HEMOGLOBIN 29.8 pg (25.0-35.0); MEAN CORPUSCULAR HGB CONC 34.2 g/dl (31.0-37.0); MEAN PLATELET VOLUME 9.5 fl (7.0-11.0); RBC 3.66 10^6/uL (3.5-6.1); WHITE BLOOD COUNT 6.1 10^3/ul (4.5-11.0)
[2017-10-17 07:34] LABS: HEMOGLOBIN 10.9 g/dL (12.0-16.0); MEAN CELL VOLUME 87.2 fl (80.0-105.0)
[2017-10-17] MEDS: Insulin Reg-HIGH-Coverage SC SCH ×4 (07:44→22:22)
[2017-10-17 07:59] LABS: ALB/GLOB RATIO 1.2 (1.1-1.8); ALT/SGPT 27 U/L (7-56); AST/SGOT 34 U/L (14-36); BLOOD UREA NITROGEN 7 mg/dL (7-21); CALCIUM 8.5 mg/dL (8.4-10.5); GFR AFRICAN-AMERICAN > 60; GFR NON-AFRICAN AMERICAN > 60
--- NOTE | 2017-10-17 09:04 | PN ---
DATE: 10/16/2017 PRESENTATION: The patient is a 77-year-old female seen at bedside on TCU. The patient was originally seen by me on 10/14/2017 for consultation. She originally was admitted to [facility] on 10/07/2017 for a pain in the right upper quadrant secondarily, further in her admission she had a GI bleed, a lot of vomiting blood, was treated for this and then transferred to CCU. Once in TCU, Psychiatry consult was called due to the patient's dementia. The patient is very confused, speaks mostly Anguillan, confused in both Monegasque and Anguillan, answers to her name, but not oriented to time or place. She has been on mirtazapine 15 mg one at bedtime for a couple of years now. I have collected collateral from the daughter on my previous consultation. She had indicated that the patient had become depressed 5 or 6 years ago when she was diagnosed with Alzheimer's, was on mirtazapine 7.5 mg at bedtime from her PMD, , who was also the patient's nephew. When the patient's 8 months ago, the dosage was increased to 15 mg one at bedtime of the mirtazapine. She has been on this for a while, so she has continued on it as has been ordered. She has pulled out her IV. There have been no instances of her being combative or getting out of bed even with the level of confusion while on medical unit or in TCU. She has an order for Xanax 0.25, 1 mg p.o. t.i.d. p.r.n. in addition to an order for Benadryl 25 mg IV q. 6 hours p.r.n. in addition to the mirtazapine to help with agitation should it occur. PHYSICAL EXAMINATION: VITAL SIGNS: Current, temperature of 98.6, pulse rate of 95, blood pressure of 120/63, respiratory rate of 18, and an O2 sat of 99%. The patient today had a transfusion due to low hemoglobin of 7.4, RBCs were 2.39, her whites were 4.3 with a hematocrit of 21.9. She and was on cooperative with this. MENTAL STATUS EXAMINATION: Mental status is unable to be done other than that the patient responds to her name. She is extremely confused is unable to clearly answer any questions. She is pleasant. DIAGNOSTIC IMPRESSION: Dementia without behavioral disturbance. The patient is cooperative. There has been no indication according to her behavior that she is suicidal or homicidal. According to the daughter's collateral information, her mother has never had any suicide attempts, never been hospitalized psychiatrically. Never had any psychiatric difficulties up until the point when she was diagnosed with Alzheimer's and started to become depressed and was put on the mirtazapine. According to nurses' note, the patient has been pleasant and cooperative. I will sign off on this at this time. Please call if there are any further needs. This case has been discussed with Dr. Flor Causey, who is my cosigner. Thank you for the consult. Shantel Llanos APN Flor Causey MD
--- NOTE | 2017-10-17 09:36 | PN ---
DATE: SUBJECTIVE: I saw her resting comfortably in bed in the TCU. She was transfused 2 units of packed red blood cells yesterday. She is alert, confused. She is on Benadryl, Carafate, Catapres, Fergon, insulin, Lasix, Lipitor, Lopressor, Norvasc, Periactin, Protonix, Remeron, sodium bicarbonate, multivitamin, Xanax and Zofran. PHYSICAL EXAMINATION: VITAL SIGNS: She has vital signs of 98.6 temp, 86 pulse, 120/58 blood pressure, 18 respiratory rate, 99% O2 sat on room air. HEENT: Head is atraumatic, normocephalic. HEART: Regular rate. LUNGS: Clear to auscultation. ABDOMEN: Soft, obese. EXTREMITIES: No edema. LABORATORY DATA: She has a 144 sodium; potassium is 2.9, we gave her 2 K-riders today of 10 mEq each; BUN 7; creatinine 0.8; GFR is greater than 60; sugar is 117; calcium is 8.5; total bili is 0.5; AST is 34; ALT is 27; alk phos 49; total protein is 5.5. Her white count is 6.1, hemoglobin is up to 10.9 after 2 units of packed red blood cells, 31.9 hematocrit with a 254 platelets. ASSESSMENT AND PLAN: She is being seen by Infectious Disease, Gastroenterology and Surgery. We will check her labs tomorrow. Also Cardiology. She might need to have a colonoscopy if her hemoglobin does not stay solid. She has a history of diabetes, cerebrovascular accident, high cholesterol, hypertension, diverticulitis, erosive esophagitis and duodenal diverticular disease, anemia. We will watch her very closely. Check her labs tomorrow and physical therapy. Cornell Nevarez DO
[2017-10-17] MEDS: MEMANTINE 28 MG PO SCH (10:00)
[2017-10-17] MEDS: KETOTIFEN FUMARATE OU SCH (10:00)
[2017-10-17] MEDS: Multivitamin Therapeutic Tab PO SCH (12:31)
--- NOTE | 2017-10-17 14:49 | CP.PCM.PN ---
Subjective - Date & Time of Evaluation Date of Evaluation: 10/17/17 Time of Evaluation: 14:48 - Subjective Subjective: Follow up Nephrology Consultation Note Assessment: stable Acute Kidney Injury (N17.9) resolved recent GI bleed, hypokalemia Anemia (D64.9), HTN (I12.9), DM Plan No acute need for renal replacement therapy at this time. renal function stable Hypertension control with meds as ordered. Patient not on ACEI/ARB. can start if BP high supplement electrolytes as needed. ordered for KDUR 20 meq per day continue with bicarb and iron supplements if K stays low then to check renin/aldosterone Dose meds/antibiotics for GFR>60. Avoid nephrotoxins/NSAIDs Glycemic control Further work up for as per primary team Thanks for allowing me to participate in care of your patient. Will see her on PRN basis. Please call if any Qs Dr Tripp Copeland Office: [phone] CC: none at this time HPI: pt is a 77 F with Hx of DM, HTN, hyperlipidemia was recently admitted with anemia, GI bleed s/p EGD, MICHELE and hypercalcemia now in rehab. renal consult for MICHELE, HTN and electrolyets management ROS: Noted events overnight. Denies chest pain, palpitation, shortness of breath, leg swelling. All other negative Physical Examination: General Appearance: Comfortable, in no acute respiratory distress, co-operative . Vitals reviewed and noted as below Head; Atraumatic, normocephalic ENT: no ulcers no thrush. Tongue is midline. Oropharynx: no rash or ulcers. EYES: Pupils are equal, round and reactive to light accommodation. Eye muscles and extraocular movement intact. Sclera is anicteric. Neck; supple no lymphadenopathy, no thyromegaly or bruit Lungs: Normal respiratory rate/effort. Breath sounds bilateral equal and clear Heart: Normal rate. s1s2 normal. No rub or gallop. Extremities: no edema. No varicose veins Neurological: Patient is alert, awake No focal deficit. Strength bilateral appropriate and equal Skin: Warm and dry. Normal turgor. No rash. Palpitation: Normal elasticity for age Abdomen: Abdomen is soft. Bowel sounds +. There is no abdominal tenderness, no guarding/rigidity no organomegaly Psych: limited insight and normal affect/mood MSK: no joint tenderness or swelling. Digits and nails normal, no deformity : kidney or bladder not palpable Labs/imaging reviewed. Past medical history, past surgical history, family history, social history, allergy reviewed and noted as below Family hx: no hx of CKD. Rest non-contributory imaging: left kidney cyst kappa/lambda normal. urine ADRIÁN neg Objective - Vital Signs/Intake and Output Vital Signs (last 24 hours): Temp Pulse Resp BP Pulse Ox 98.6 F 94 H 18 145/74 99 10/16/17 17:42 10/17/17 10:00 10/16/17 17:42 10/17/17 10:00 10/16/17 17:42 - Medications Medications: Current Medications Alprazolam (Xanax) 0.25 mg PO TID PRN; Protocol PRN Reason: Anxiety Stop: 10/23/17 14:01 Last Admin: 10/17/17 14:27 Dose: 0.25 mg Amlodipine Besylate (Norvasc) 10 mg PO DAILY [facility] Last Admin: 10/17/17 10:00 Dose: Not Given Atorvastatin Calcium (Lipitor) 80 mg PO DIN [facility] Last Admin: 10/16/17 17:43 Dose: 80 mg Clonidine HCl (Catapres) 0.1 mg PO BID [facility] Last Admin: 10/17/17 10:00 Dose: 0.1 mg Cyproheptadine HCl (Periactin) 4 mg PO DAILY [facility] Last Admin: 10/17/17 10:00 Dose: Not Given Diphenhydramine HCl (Benadryl) 25 mg IVP Q6H PRN PRN Reason: Anaphylaxis Diphenhydramine HCl (Benadryl) 25 mg PO Q8 PRN PRN Reason: Anxiety Last Admin: 10/16/17 22:12 Dose: 25 mg Ferrous Gluconate (Fergon) 324 mg PO TID [facility] Last Admin: 10/17/17 13:25 Dose: 324 mg Home Med (Home Med) 0 unit OU DAILY [facility] Last Admin: 10/17/17 10:00 Dose: 1 unit Home Med (Home Med) 1 unit PO DAILY [facility] Last Admin: 10/17/17 10:00 Dose: 1 unit Insulin Human Regular (Humulin R High) 0 units SC ACHS [facility] PRN Reason: Protocol Last Admin: 10/17/17 12:27 Dose: 2 units Metoprolol Tartrate (Lopressor) 100 mg PO 0800,1800 [facility] Last Admin: 10/17/17 08:13 Dose: Not Given Mirtazapine (Remeron) 15 mg PO HS [facility] Morphine Sulfate (Morphine) 0.5 mg IM Q4H PRN PRN Reason: Pain, Mild (1-3) Multivitamins (Thera Tab) 1 tab PO 0800 [facility] Last Admin: 10/17/17 12:31 Dose: 1 tab Ondansetron HCl (Zofran Inj) 4 mg IVP Q4H PRN PRN Reason: Nausea/Vomiting Last Admin: 10/17/17 14:20 Dose: 4 mg Pantoprazole Sodium (Protonix Ec Tab) 40 mg PO 0600,1600 [facility] Sodium Bicarbonate (Sodium Bicarbonate Tab) 650 mg PO BID [facility] Last Admin: 10/17/17 10:00 Dose: 650 mg Sucralfate (Carafate Oral Susp) 1 gm PO 0630,1130,1630,2200 [facility] Last Admin: 10/17/17 12:21 Dose: 1 gm - Labs Labs: 10/17/17 07:00 10/17/17 07:00
[2017-10-17] MEDS: Pantoprazole 40 mg EC Tab PO SCH (16:00)
[2017-10-17] MEDS: Potassium Chloride 20 mEq ER Tab PO SCH (18:22)
--- NOTE | 2017-10-18 00:06 | PN ---
DATE: 10/17/2017 SUBJECTIVE: Patient is in bed, in no acute distress, nontoxic. PHYSICAL EXAMINATION: VITAL SIGNS: Temperature is 98, blood pressure is 104/60, respiratory rate of 18. HEENT: Unremarkable. NECK: Supple. LUNGS: Have decreased breath sounds. HEART: Normal S1 and S2. ABDOMEN: Soft and nontender. LABORATORY EXAMINATION: Reveals a white count of 6.1, hemoglobin of 10, platelets of 254. BUN of 7, creatinine of 0.8. ASSESSMENT AND PLAN: This is a 77-year-old female seen earlier this morning in transitional care, in room 317, with history of diabetes mellitus, cerebrovascular accident, hyperlipidemia, dyslipidemia, hypertension, diverticulitis, erosive esophagitis, duodenal diverticular disease, anemia, currently off of antibiotics, afebrile and Dr. Kumar's note is reviewed from today, concerned about the CAT scan of the liver findings and we will discuss with Dr. Cornell Nevarez. Con Herrera MD
[2017-10-18] MEDS: Sucralfate 1 gm/10 ml Oral Susp UD PO SCH ×4 (06:15→21:29)
[2017-10-18] MEDS: Pantoprazole 40 mg EC Tab PO SCH ×2 (06:15→17:01)
[2017-10-18 07:33] LABS: HEMOGLOBIN 11.4 g/dL (12.0-16.0); MEAN CELL VOLUME 89.1 fl (80.0-105.0); MEAN CORPUSCULAR HEMOGLOBIN 30.2 pg (25.0-35.0); MEAN CORPUSCULAR HGB CONC 33.9 g/dl (31.0-37.0); MEAN PLATELET VOLUME 9.5 fl (7.0-11.0); RBC 3.77 10^6/uL (3.5-6.1); RED CELL DISTRIBUTION WIDTH 16.9 % (11.5-14.5); WHITE BLOOD COUNT 6.8 10^3/ul (4.5-11.0)
[2017-10-18 07:42] LABS: ALB/GLOB RATIO 1.2 (1.1-1.8); ALBUMIN 3.3 g/dL (3.0-4.8); ALT/SGPT 36 U/L (7-56); AST/SGOT 31 U/L (14-36); BLOOD UREA NITROGEN 8 mg/dL (7-21); CALCIUM 9.3 mg/dL (8.4-10.5); GFR AFRICAN-AMERICAN > 60; GFR NON-AFRICAN AMERICAN > 60
[2017-10-18] MEDS: Insulin Reg-HIGH-Coverage SC SCH ×4 (07:54→21:45)
[2017-10-18] MEDS ORDERED: Potassium Chloride 20 mEq ER Tab PO SCH (08:00)
[2017-10-18] MEDS: Multivitamin Therapeutic Tab PO SCH (09:00)
[2017-10-18] MEDS: Potassium Chloride 20 mEq ER Tab PO SCH (09:00)
[2017-10-18] MEDS: KETOTIFEN FUMARATE OU SCH (11:00)
[2017-10-18] MEDS: MEMANTINE 28 MG PO SCH (11:00)
--- NOTE | 2017-10-18 16:46 | CP.PCM.PN ---
Subjective - Date & Time of Evaluation Date of Evaluation: 10/18/17 Time of Evaluation: 09:00 - Subjective Subjective: Follow up Nephrology Consultation Note Assessment: stable Acute Kidney Injury (N17.9) resolved recent GI bleed, hypokalemia Anemia (D64.9), HTN (I12.9), DM Plan No acute need for renal replacement therapy at this time. renal function stable Hypertension control with meds as ordered. Patient not on ACEI/ARB. can start if BP high supplement electrolytes as needed. ordered for KDUR 20 meq per day continue with bicarb and iron supplements Dose meds/antibiotics for GFR>60. Avoid nephrotoxins/NSAIDs Glycemic control Further work up for as per primary team Thanks for allowing me to participate in care of your patient. Will see her on PRN basis. Please call if any Qs Dr Tripp Copeland Office: [phone] CC: none at this time HPI: pt is a 77 F with Hx of DM, HTN, hyperlipidemia was recently admitted with anemia, GI bleed s/p EGD, MICHELE and hypercalcemia now in rehab. renal consult for MICHELE, HTN and electrolyets management ROS: Noted events overnight. Denies chest pain, palpitation, shortness of breath, leg swelling. All other negative Physical Examination: General Appearance: Comfortable, in no acute respiratory distress, co-operative . Vitals reviewed and noted as below Head; Atraumatic, normocephalic ENT: no ulcers no thrush. Tongue is midline. Oropharynx: no rash or ulcers. EYES: Pupils are equal, round and reactive to light accommodation. Eye muscles and extraocular movement intact. Sclera is anicteric. Neck; supple no lymphadenopathy, no thyromegaly or bruit Lungs: Normal respiratory rate/effort. Breath sounds bilateral equal and clear Heart: Normal rate. s1s2 normal. No rub or gallop. Extremities: no edema. No varicose veins Neurological: Patient is alert, awake No focal deficit. Strength bilateral appropriate and equal Skin: Warm and dry. Normal turgor. No rash. Palpitation: Normal elasticity for age Abdomen: Abdomen is soft. Bowel sounds +. There is no abdominal tenderness, no guarding/rigidity no organomegaly Psych: limited insight and normal affect/mood MSK: no joint tenderness or swelling. Digits and nails normal, no deformity : kidney or bladder not palpable Labs/imaging reviewed. Past medical history, past surgical history, family history, social history, allergy reviewed and noted as below Family hx: no hx of CKD. Rest non-contributory imaging: left kidney cyst kappa/lambda normal. urine ADRIÁN neg Objective - Vital Signs/Intake and Output Vital Signs (last 24 hours): Temp Pulse Resp BP Pulse Ox 98.7 F 89 20 136/66 97 10/18/17 14:50 10/18/17 14:50 10/18/17 14:50 10/18/17 14:50 10/18/17 14:50 - Medications Medications: Current Medications Alprazolam (Xanax) 0.25 mg PO TID PRN; Protocol PRN Reason: Anxiety Stop: 10/23/17 14:01 Last Admin: 10/17/17 14:27 Dose: 0.25 mg Amlodipine Besylate (Norvasc) 10 mg PO DAILY [facility] Last Admin: 10/18/17 11:00 Dose: 10 mg Atorvastatin Calcium (Lipitor) 80 mg PO DIN [facility] Last Admin: 10/17/17 18:22 Dose: 80 mg Clonidine HCl (Catapres) 0.1 mg PO BID [facility] Last Admin: 10/18/17 11:00 Dose: 0.1 mg Cyproheptadine HCl (Periactin) 4 mg PO DAILY [facility] Last Admin: 10/18/17 11:00 Dose: 4 mg Diphenhydramine HCl (Benadryl) 25 mg IVP Q6H PRN PRN Reason: Anaphylaxis Diphenhydramine HCl (Benadryl) 25 mg PO Q8 PRN PRN Reason: Anxiety Last Admin: 10/18/17 00:39 Dose: 25 mg Ferrous Gluconate (Fergon) 324 mg PO TID [facility] Last Admin: 10/18/17 13:18 Dose: Not Given Home Med (Home Med) 0 unit OU DAILY [facility] Last Admin: 10/18/17 11:00 Dose: 1 unit Home Med (Home Med) 1 unit PO DAILY [facility] Last Admin: 10/18/17 11:00 Dose: 1 unit Insulin Human Regular (Humulin R High) 0 units SC ACHS [facility] PRN Reason: Protocol Last Admin: 10/18/17 11:49 Dose: Not Given Metoprolol Tartrate (Lopressor) 100 mg PO 0800,1800 [facility] Last Admin: 10/18/17 08:00 Dose: Not Given Mirtazapine (Remeron) 15 mg PO HS [facility] Last Admin: 10/17/17 22:04 Dose: 15 mg Morphine Sulfate (Morphine) 0.5 mg IM Q4H PRN PRN Reason: Pain, Mild (1-3) Multivitamins (Thera Tab) 1 tab PO 0800 [facility] Last Admin: 10/18/17 09:00 Dose: 1 tab Ondansetron HCl (Zofran Inj) 4 mg IVP Q6H PRN; Protocol PRN Reason: Nausea/Vomiting Last Admin: 10/18/17 15:59 Dose: 4 mg Pantoprazole Sodium (Protonix Ec Tab) 40 mg PO 0600,1600 [facility] Last Admin: 10/18/17 06:15 Dose: 40 mg Potassium Chloride (K-Dur 20 Meq Er Tab) 20 meq PO 0800 [facility] PRN Reason: Protocol Last Admin: 10/18/17 09:00 Dose: 20 meq Potassium Chloride (K-Dur 20 Meq Er Tab) 20 meq PO 0800 [facility] Sodium Bicarbonate (Sodium Bicarbonate Tab) 650 mg PO BID [facility] Last Admin: 10/18/17 11:00 Dose: 650 mg Sucralfate (Carafate Oral Susp) 1 gm PO 0630,1130,1630,2200 [facility] Last Admin: 10/18/17 16:00 Dose: 1 gm - Labs Labs: 10/18/17 07:00 10/18/17 07:00
--- NOTE | 2017-10-18 17:11 | PN ---
DATE: 10/18/2017 SUBJECTIVE: Patient is in bed, in no acute distress. PHYSICAL EXAMINATION: VITAL SIGNS: Temperature is 98, blood pressure is 136/60, respiratory rate 20. HEENT: Unremarkable. NECK: Supple. LUNGS: Decreased breath sounds. HEART: Normal S1, S2. ABDOMEN: Soft. LABORATORY EXAMINATION: Reveals a white count of 6.8, hemoglobin of 11, and platelets of 285. Chemistries reveal a BUN of 8, creatinine of 0.8. Microbiology is noted. ASSESSMENT AND PLAN: A 77-year-old female with history of diabetes mellitus, cerebrovascular accident, hyperlipidemia, dyslipidemia, hypertension, diverticulitis, erosive esophagitis, duodenal diverticular disease, anemia, currently off antibiotics, afebrile. Review of orders confirms the patient's medications. Patient is at risk for developing nosocomial infections. Con Herrera MD
--- NOTE | 2017-10-18 19:21 | PN ---
DATE: SUBJECTIVE: I saw her in transitional care unit. She is still not eating well at all. Very confused, looking for her daughter. She is being seen by Infectious Disease, Renal, GI. There is erosive gastritis, sepsis, diabetes, hypertension, dementia, anemia. She was transfused recently. PHYSICAL EXAMINATION: VITAL SIGNS: She has 98 temperature, 80 pulse, 104/50 blood pressure, 18 respiratory rate, 100% O2 sat. HEENT: Head is atraumatic, normocephalic. HEART: Regular rate. LUNGS: Clear to auscultation. ABDOMEN: Soft, nontender. Positive bowel sounds. EXTREMITIES: No edema. NEUROLOGIC: She is alert and completely confused. LABORATORY DATA: She has a 6.8 white count, 11.4 hemoglobin after transfusion, 32.6 hematocrit, 285 platelets. She has a 142 sodium, potassium 3.2, potassium replaced. BUN is 8, creatinine 0.8. GFR is greater than 60. Sugar is 148. Calcium is 9.3. Total bilirubin is 0.6. AST is 31, ALT is 36, alkaline phosphatase 61. Total protein is 6. Not sure what she will need. It is all of gastric erosion, esophageal erosion, or gastritis. She is on good medication. There is no H. pylori, no cancer. I will discuss with GI about what she will need from Periactin. Encourage her to eat. I did give her some milk today. She took half a glass of milk. I do not she needs anymore. Physical therapy. Cornell Nevarez DO MTDD
[2017-10-19] MEDS: Sucralfate 1 gm/10 ml Oral Susp UD PO SCH ×4 (06:34→21:29)
[2017-10-19] MEDS: Pantoprazole 40 mg EC Tab PO SCH ×2 (06:34→14:02)
[2017-10-19] MEDS: Insulin Reg-HIGH-Coverage SC SCH ×4 (06:35→22:03)
[2017-10-19 07:05] LABS: HEMOGLOBIN 10.9 g/dL (12.0-16.0); MEAN CELL VOLUME 89.3 fl (80.0-105.0); MEAN CORPUSCULAR HEMOGLOBIN 29.9 pg (25.0-35.0); MEAN CORPUSCULAR HGB CONC 33.5 g/dl (31.0-37.0); MEAN PLATELET VOLUME 10.2 fl (7.0-11.0); RBC 3.64 10^6/uL (3.5-6.1); RED CELL DISTRIBUTION WIDTH 16.7 % (11.5-14.5); WHITE BLOOD COUNT 5.2 10^3/ul (4.5-11.0)
[2017-10-19] MEDS ORDERED: Potassium Chloride 20 mEq ER Tab PO SCH (08:00)
[2017-10-19] MEDS: Potassium Chloride 20 mEq ER Tab PO SCH (08:21)
[2017-10-19 09:42] LABS: ALB/GLOB RATIO 1.2 (1.1-1.8); ALT/SGPT 32 U/L (7-56); AST/SGOT 31 U/L (14-36); BLOOD UREA NITROGEN 9 mg/dL (7-21); CALCIUM 9.4 mg/dL (8.4-10.5); GFR AFRICAN-AMERICAN > 60; GFR NON-AFRICAN AMERICAN > 60
[2017-10-19] MEDS: Multivitamin Therapeutic Tab PO SCH (10:52)
[2017-10-19] MEDS: MEMANTINE 28 MG PO SCH (10:53)
[2017-10-19] MEDS: KETOTIFEN FUMARATE OU SCH (10:55)
--- NOTE | 2017-10-19 14:08 | PN ---
DATE: SUBJECTIVE: She is still not sleeping well. She is needing Benadryl. She is also not eating accurate. We are going to try and get her to eat today. She is doing physical therapy. She has been seen by Surgery, Renal, Infectious Disease, Cardiology, Interventional Radiology, GI. She is out of bed, always asking for her daughter, Priya. PHYSICAL EXAMINATION: VITAL SIGNS: She has a 98.7 temp, 103 pulse, 143/76 blood pressure, 20 respiratory rate, 99% O2 sat on room air. HEENT: Head is atraumatic, normocephalic. HEART: Regular rate. LUNGS: Decreased breath sounds, but clear. ABDOMEN: Soft, obese, nontender. EXTREMITIES: No edema. LABORATORY DATA: She has a 5.2 white count, 10.9 hemoglobin, 32.5 hematocrit with a 268 platelets. So far the hemoglobin is fairly much holding. 140 sodium; potassium 4.3, better; BUN 9, creatinine 0.7; GFR is greater than 60; sugar is 139; calcium is 9.4; total bili is 0.7; AST is 31; ALT is 32; alk phos is 48; total protein is 5.6; albumin is 3. MEDICATIONS: She is on Benadryl, Carafate, Catapres, Fergon, insulin, potassium, Lipitor, Lopressor, Morphine, Norvasc, Periactin, Protonix, Remeron, sodium bicarb, Thera-Tabs, Xanax, Zofran. ASSESSMENT AND PLAN: Hopefully, she will start to eat and do better with therapy. She has 4 more days in Transitional Care Unit. She has diabetes, cerebrovascular accident, history of high cholesterol, hypertension, diverticulitis, erosive esophagitis, diverticular disease, anemia. Off the antibiotics. Hopefully, the hemoglobin will stay stable. We will check her labs tomorrow. I discussed with nurse at length to get her to eat, get her out of bed to chair. Cornell Nevarez DO
--- NOTE | 2017-10-19 17:49 | PN ---
DATE: 10/19/2017 SUBJECTIVE: Patient is in bed, in no acute distress, nontoxic. PHYSICAL EXAMINATION: VITAL SIGNS: Temperature is 98, blood pressure is 130/60, respiratory rate of 18, heart rate of 82. HEENT: Unremarkable. NECK: Supple. LUNGS: Have decreased breath sounds. HEART: Normal S1, S2. ABDOMEN: Soft, nontender. LABORATORY EXAMINATION: Reveals a white count of 5.2, hemoglobin of 10, platelets of 268. BUN of 9, creatinine of 0.7. Microbiology is noted. ASSESSMENT AND PLAN: This is a 77-year-old female with history of diabetes mellitus, cerebrovascular accident, hyperlipidemia, dyslipidemia, hypertension, diverticulitis, erosive gastritis, duodenal diverticular disease, anemia, currently off of antibiotics, afebrile. No evidence of infection. However, patient is at risk for developing nosocomial infections. Con Herrera MD
[2017-10-20] MEDS: Sucralfate 1 gm/10 ml Oral Susp UD PO SCH ×4 (05:46→21:03)
[2017-10-20] MEDS: Pantoprazole 40 mg EC Tab PO SCH ×2 (05:47→16:49)
[2017-10-20] MEDS: Insulin Reg-HIGH-Coverage SC SCH ×4 (07:10→21:12)
[2017-10-20 07:26] LABS: HEMOGLOBIN 10.9 g/dL (12.0-16.0); MEAN CELL VOLUME 89.9 fl (80.0-105.0); MEAN CORPUSCULAR HEMOGLOBIN 29.7 pg (25.0-35.0); MEAN PLATELET VOLUME 9.5 fl (7.0-11.0); RBC 3.67 10^6/uL (3.5-6.1); RED CELL DISTRIBUTION WIDTH 16.8 % (11.5-14.5); WHITE BLOOD COUNT 6.8 10^3/ul (4.5-11.0)
[2017-10-20 08:20] LABS: ALB/GLOB RATIO 1.1 (1.1-1.8); ALT/SGPT 26 U/L (7-56); AST/SGOT 27 U/L (14-36); BLOOD UREA NITROGEN 13 mg/dL (7-21); CALCIUM 9.4 mg/dL (8.4-10.5); GFR AFRICAN-AMERICAN > 60; GFR NON-AFRICAN AMERICAN > 60
[2017-10-20] MEDS: Potassium Chloride 20 mEq ER Tab PO SCH (08:29)
[2017-10-20] MEDS: Multivitamin Therapeutic Tab PO SCH (08:31)
[2017-10-20] MEDS: KETOTIFEN FUMARATE OU SCH (09:05)
[2017-10-20] MEDS: MEMANTINE 28 MG PO SCH (11:28)
[2017-10-21] MEDS: Pantoprazole 40 mg EC Tab PO SCH ×2 (05:21→17:27)
[2017-10-21] MEDS: Sucralfate 1 gm/10 ml Oral Susp UD PO SCH ×4 (06:20→22:01)
[2017-10-21] MEDS: Insulin Reg-HIGH-Coverage SC SCH ×4 (06:48→22:01)
[2017-10-21 07:09] LABS: HEMOGLOBIN 11.1 g/dL (12.0-16.0); MEAN CELL VOLUME 89.7 fl (80.0-105.0); MEAN CORPUSCULAR HEMOGLOBIN 29.4 pg (25.0-35.0); MEAN CORPUSCULAR HGB CONC 32.8 g/dl (31.0-37.0); MEAN PLATELET VOLUME 9.6 fl (7.0-11.0); RBC 3.77 10^6/uL (3.5-6.1); WHITE BLOOD COUNT 4.9 10^3/ul (4.5-11.0)
[2017-10-21 07:48] LABS: ALB/GLOB RATIO 1.2 (1.1-1.8); ALBUMIN 3.3 g/dL (3.0-4.8); ALT/SGPT 25 U/L (7-56); AST/SGOT 27 U/L (14-36); BLOOD UREA NITROGEN 13 mg/dL (7-21); CALCIUM 9.7 mg/dL (8.4-10.5); GFR AFRICAN-AMERICAN > 60; GFR NON-AFRICAN AMERICAN > 60
[2017-10-21] MEDS: Potassium Chloride 20 mEq ER Tab PO SCH (08:05)
[2017-10-21] MEDS: Multivitamin Therapeutic Tab PO SCH (08:06)
--- NOTE | 2017-10-21 08:07 | PN ---
DATE: 10/20/2017 SUBJECTIVE: I saw her resting comfortably in bed this morning. She is alert. She is talking. She is calm. No acute distress. We kind of agreed that she is trying to eat little bit of breakfast this morning. She came in for GI bleed, SIRS, erosive gastritis, anemia, sepsis, diabetes, dementia and hypertension. OBJECTIVE: GENERAL: She is alert and talking and seems very calm. VITAL SIGNS: She has 98.3 temp, 76 pulse, 116/62 blood pressure, 16 respiratory rate. HEENT: Head is atraumatic and normocephalic. HEART: Regular rate. LUNGS: Clear to auscultation. ABDOMEN: Soft, obese, nontender. EXTREMITIES: No edema. MEDICATIONS: She is currently on Benadryl, Carafate, Catapres, iron, insulin coverage, potassium, Lipitor, Lopressor, morphine, Norvasc, Periactin, Protonix, Remeron, sodium bicarbonate, Thera-Tabs, Xanax and Zofran. LABORATORY DATA: She has a 6.8 white count, 10.9 hemoglobin, 33 hematocrit with 237 platelets, which is good for her. She has 141 sodium, potassium 3.8, BUN is 13, creatinine 0.8, GFR greater than 60, blood sugar is 151, calcium is 9.4. Total bili is 0.6, AST is 27, ALT is 26, alk phos is 54. Labs are pretty good. ASSESSMENT AND PLAN: She has been seen by Infectious Disease, Renal, Gastroenterology. I am hopeful to get her jump started on her eating. She has diabetes, cerebrovascular accident, hyperlipidemia, hypertension, diverticulitis, erosive gastritis, duodenal diverticular disease, anemia, off antibiotics. Hopefully, we will get her eating and get a good physical therapy. Continue aggressive treatment and care. We will check her labs tomorrow. Encouraged her to eat well and do therapy. Cornell Nevarez DO
[2017-10-21] MEDS: MEMANTINE 28 MG PO SCH (10:33)
[2017-10-21] MEDS: KETOTIFEN FUMARATE OU SCH (10:33)
--- NOTE | 2017-10-21 16:05 | PN ---
DATE: 10/21/2017 SUBJECTIVE: I saw her resting comfortably in bed. She is sleeping, but she has been eating better and walking better, so she is improving overall. She was here for a GI bleed, SIRS, erosive gastritis, anemia, sepsis, diabetes, dementia and hypertension. I do believe that she is starting to eat is a very good sign. MEDICATIONS: She is on Benadryl, Carafate, Catapres, Fergon, insulin, potassium, Lipitor, Lopressor, morphine, Norvasc, Periactin, Protonix, Remeron, sodium bicarb, Thera-Tabs, Xanax, Zofran. PHYSICAL EXAMINATION: VITAL SIGNS: She has a 98.6 temp, 77 pulse, 105/62 blood pressure, 18 respiratory rate and 100% O2 sat. HEENT: Head is atraumatic, normocephalic. HEART: Regular rate. LUNGS: Decreased breath sounds, but clear. ABDOMEN: Soft, obese, nontender. EXTREMITIES: No edema. LABORATORY DATA: She has a 4.9 white count, 11.1 hemoglobin, 33.8 hematocrit with a 231 platelets. 141 sodium, potassium 3.8, BUN is 13, creatinine 0.9, GFR is greater than 60, sugar is 164, calcium is 9.7, total bili is 0.6, AST is 27, ALT is 25, alk phos 59, total protein 6.1. ASSESSMENT AND PLAN: Overall, I do think she is starting to improve. We will continue with her current treatment and care. She has 2 more days on the unit before she goes home. I will [facility] Cornell Nevarez DO
[2017-10-22] MEDS: Sucralfate 1 gm/10 ml Oral Susp UD PO SCH ×4 (06:23→22:36)
[2017-10-22] MEDS: Pantoprazole 40 mg EC Tab PO SCH ×2 (06:23→18:24)
[2017-10-22] MEDS: Insulin Reg-HIGH-Coverage SC SCH ×4 (06:31→22:36)
[2017-10-22 06:47] LABS: ALB/GLOB RATIO 1.2 (1.1-1.8); ALBUMIN 3.2 g/dL (3.0-4.8); ALT/SGPT 24 U/L (7-56); AST/SGOT 29 U/L (14-36); BLOOD UREA NITROGEN 14 mg/dL (7-21); CALCIUM 9.8 mg/dL (8.4-10.5); GFR AFRICAN-AMERICAN > 60; GFR NON-AFRICAN AMERICAN > 60
[2017-10-22 06:53] LABS: HEMOGLOBIN 11.1 g/dL (12.0-16.0); MEAN CELL VOLUME 90.6 fl (80.0-105.0); MEAN CORPUSCULAR HEMOGLOBIN 29.7 pg (25.0-35.0); MEAN CORPUSCULAR HGB CONC 32.7 g/dl (31.0-37.0); RBC 3.74 10^6/uL (3.5-6.1); RED CELL DISTRIBUTION WIDTH 16.4 % (11.5-14.5); WHITE BLOOD COUNT 4.8 10^3/ul (4.5-11.0)
[2017-10-22] MEDS: Multivitamin Therapeutic Tab PO SCH (10:18)
[2017-10-22] MEDS: KETOTIFEN FUMARATE OU SCH (10:19)
[2017-10-22] MEDS: MEMANTINE 28 MG PO SCH (10:20)
[2017-10-22] MEDS: Potassium Chloride 20 mEq ER Tab PO SCH (10:21)
[2017-10-22 14:26] VITALS: RESP 18
[2017-10-23] MEDS: Pantoprazole 40 mg EC Tab PO SCH ×2 (05:30→17:41)
[2017-10-23] MEDS: Sucralfate 1 gm/10 ml Oral Susp UD PO SCH ×3 (05:30→17:39)
[2017-10-23] MEDS: Insulin Reg-HIGH-Coverage SC SCH ×3 (06:52→17:40)
[2017-10-23] MEDS: Potassium Chloride 20 mEq ER Tab PO SCH (08:10)
[2017-10-23] MEDS: Multivitamin Therapeutic Tab PO SCH (08:10)
--- NOTE | 2017-10-23 08:11 | PN ---
DATE: 10/22/2017 SUBJECTIVE: I saw her in bed in the Transitional Care Unit. She has been doing better lately there. She has walked well and she is eating a few meals. She had dinner last night, which is a good step-up for not eating at all for weeks. The plan is to discharge her tomorrow, I asked the nurse to call social services manager to arrange for discharge tomorrow to home. She is on Benadryl, Carafate, Catapres, iron, insulin, potassium, Lipitor, Lopressor, morphine, Norvasc, Periactin, Protonix, Remeron, sodium bicarbonate, Thera-Tabs, Xanax, and Zofran. I am going to discontinue the morphine and put her on Toradol. OBJECTIVE: VITAL SIGNS: Temperature 98.4, 70 pulse, 121/61 blood pressure, 20 respiratory rate, 100% O2 saturation on room air. HEENT: Head is atraumatic and normocephalic. HEART: Regular rate. LUNGS: Decreased breath sounds, but clear. ABDOMEN: Soft. Positive bowel sounds. Nontender all over. Obese. EXTREMITIES: No edema. LABORATORY DATA: She has a 4.8 white count, 11.1 hemoglobin, 32.9 hematocrit with a 244,000 platelets. Sodium 141, potassium 3.8, BUN is creatinine 0.9, GFR is greater 60, sugar is 130, calcium is 9.8, total bilirubin is 0.5, AST is 29, ALT is 24, alkaline phosphatase 55, and total protein 5.9. She has been seen by Infectious Disease, Renal and GI. She was scoped. She has been a very busy girl. She has diabetes, CVA, high cholesterol, hypertension, diverticulitis, erosive gastritis, duodenal diverticular disease, anemia. I do think she is best she has been, positive dementia. We have no change of pain medicines around; hopefully, she is to do well with physical therapy; hopefully, she will eat. Cornell Nevarez DO [facility]ENTER[facility]
[2017-10-23] MEDS: KETOTIFEN FUMARATE OU SCH (10:10)
[2017-10-23] MEDS: MEMANTINE 28 MG PO SCH (10:10)
[2017-10-23 16:55] VITALS: O2SAT 96
[2017-10-23 17:37] VITALS: BP 124/55; PULSE 74; TEMP 98.5
--- NOTE | 2017-10-24 02:10 | DS ---
HISTORY OF PRESENT ILLNESS: She is seen resting comfortably in bed. She did not want to each much this morning, not hungry yet. She is doing okay, walking. She is being discharged today. She is going to go home on Benadryl, Carafate, Catapres, Fergon, potassium, Lipitor, Lopressor, Norvasc, Periactin, Protonix, Remeron, sodium bicarb, multivitamins, Tylenol, Xanax, and Zofran. PHYSICAL EXAMINATION: VITAL SIGNS: 98.6 temp, 78 pulse, 117/50 blood pressure, 18 respiratory rate, and 98% O2 sat on room air. HEENT: Head is atraumatic, normocephalic. HEART: Regular rate. LUNGS: Clear to auscultation. ABDOMEN: Soft, obese. EXTREMITIES: No edema. LABORATORY DATA: She has a 4.8 white count, 11.1 hemoglobin, 244 platelets. Last blood sugar was 166. ASSESSMENT AND PLAN: She will be discharged today with a followup as an outpatient with the primary care doctor. They will call me for medications if they need them. The patient had gastrointestinal bleed, systemic inflammatory response syndrome, sepsis, diabetes, dementia, hypertension, erosive gastritis. Cornell Nevarez DO
== END 2017-10-23 19:40 | disposition home or self-care (01) | DRG 872 ==
LOC: TRCU 18:50
PROVIDERS: ADMIT Family Medicine; ATTEND Family Medicine
PROC: F07Z9ZZ Gait Training/Functional Ambulation Treatment (ICD-10-PCS; principal; 2017-10-17)
PROC: F07M6ZZ Therapeutic Exercise Treatment of Musculoskeletal System - Whole Body (ICD-10-PCS; 2017-10-17)
PROC: F08Z2ZZ Grooming/Personal Hygiene Treatment (ICD-10-PCS; 2017-10-17)
PROC: F08Z1ZZ Dressing Techniques Treatment (ICD-10-PCS; 2017-10-17)
PROC: F08Z0ZZ Bathing/Showering Techniques Treatment (ICD-10-PCS; 2017-10-17)
DX: A41.9 Sepsis, unspecified organism (principal); N17.9 Acute kidney failure, unspecified; K92.0 Hematemesis; D64.9 Anemia, unspecified; K22.10 Ulcer of esophagus without bleeding; K57.12 Diverticulitis of small intestine without perforation or abscess without bleeding; N28.1 Cyst of kidney, acquired; G30.9 Alzheimer's disease, unspecified; F02.80 Dementia in other diseases classified elsewhere, unspecified severity, without behavioral disturbance, psychotic disturbance, mood disturbance, and anxiety; E11.9 Type 2 diabetes mellitus without complications; E78.00 Pure hypercholesterolemia, unspecified; E78.5 Hyperlipidemia, unspecified; I10 Essential (primary) hypertension; K29.60 Other gastritis without bleeding; K80.20 Calculus of gallbladder without cholecystitis without obstruction; Z86.010 Personal history of colon polyps; Z86.73 Personal history of transient ischemic attack (TIA), and cerebral infarction without residual deficits; Z87.19 Personal history of other diseases of the digestive system; Z90.710 Acquired absence of both cervix and uterus